=== PATIENT | female | born 1970 | race American Indian/Alaskan Native ===

== ENCOUNTER 2020-09-02 13:55 | Inpatient (IN) | payer OTHER ==
--- NOTE | 2020-09-02 14:40 | Emergency Department Report ---
Blank Doc - Documentation Documentation: 49-year female that presents with generalized abdominal pain with nausea vomit ing x2 weeks and weakness. 1- This initial assessment/diagnostic orders/clinical plan/ treatment(s) is/are subject to change based on pt's health status, clinical progression and re- assessment by fellow clinical providers in the ED. Further treatment and workup at subsequent clinical provers discretion. Patient/guardians urged not to elope from ED as their condition may be serious if not clinically assessed and managed. 2-labs 3-UA
[2020-09-02 15:20] LABS: Basophils % (Auto) 0.9 % (0.0-1.8); Eosinophils % (Auto) 0.2 % (0.0-4.3); Hematocrit 33.6 % (30.3-42.9); Hemoglobin 11.1 gm/dl (10.1-14.3); Lymphocytes # (Auto) 1.3 K/mm3 (1.2-5.4); Mean Corpuscular HGB Conc 33 % (30-34); Mean Corpuscular Volume 97 fl (79-97); Monocytes # (Auto) 0.4 K/mm3 (0.0-0.8); Monocytes % (Auto) 7.2 % (0.0-7.3); Platelet Count 169 K/mm3 (140-440); Red Blood Count 3.47 M/mm3 (3.65-5.03); Red Cell Distribution Width 14.4 % (13.2-15.2)
[2020-09-02 15:42] LABS: Alanine Aminotransferase 13 units/L (7-56); Albumin 3.8 g/dL (3.9-5); BUN/Creatinine Ratio 14; Blood Urea Nitrogen 13 mg/dL (7-17); Calcium 9.2 mg/dL (8.4-10.2); Hemolysis Index 2
[2020-09-02] MEDS ORDERED: MORPHINE 4 MG/1 ML INJ IV ONE (17:52)
[2020-09-02] MEDS ORDERED: ONDANSETRON 4 MG/2 ML INJ IV ONE (17:52)
--- NOTE | 2020-09-02 17:55 | Emergency Department Report ---
<JAVI ZAMORA - Last Filed: 09/02/20 21:38> ED General Adult HPI - General Chief complaint: Abdominal Pain Stated complaint: ABD PAINS Time Seen by Provider: 09/02/20 14:38 - Related Data Allergies Allergy/AdvReac Type Severity Reaction Status Date / Time heparin Allergy Unknown Verified 09/02/20 14:42 shellfish derived Allergy Unknown Verified 09/02/20 14:42 ED Medical Decision Making - Lab Data Result diagrams: 09/02/20 14:49 09/02/20 14:49 - Radiology Data [facility] [address] [place] [address] Cat Scan Report Signed Patient: EMILY ZAVALA MR#: [id number] 0 : 1970 Acct:[id number] Age/Sex: 49 / F ADM Date: 09/02/20 Loc: ED Attending Dr: Ordering Physician: JULIA PINEDA Date of Service: 09/02/20 Procedure(s): CT abdomen pelvis w con Accession Number(s): [id number] cc: JULIA PINEDA CT ABDOMEN AND PELVIS WITH CONTRAST INDICATION / CLINICAL INFORMATION: left upper abdominal pain; hx gastric bypass. TECHNIQUE: Axial CT images were obtained through the abdomen and pelvis after 100 cc Omnipaque [address] scans at this location are performed using CT dose reduction for ALARA by means of automated exposure control. COMPARISON: None available. FINDINGS: LOWER CHEST: Subsegmental centrilobular tree-in-bud nodules in the medial segment of the middle lobe and lingula. HEPATOBILIARY: Mild-moderate extrahepatic and intrahepatic biliary ductal dilatation. Cholecystectomy status. Intrapancreatic common bile duct tapers without visuali zed obstruction. No focal hepatic lesion. PANCREAS/SPLEEN/ADRENALS: Pancreatic duct measures at the upper limits of normal. No significant adrenal abnormality. 2.7 cm splenic focus which measures slightly greater than expected for simple cyst. GENITOURINARY: 1.3 cm right simple renal cyst. No solid renal lesion or nephrolithiasis. No obstructive uropathy. Ureters demonstrate no significant abnormality. Bladder demonstrates no significant abnormality. GASTROINTESTINAL/MESENTERY: Extensive operative change throughout the bowel including gastric bypass. There is moderate dilatation of the proximal small bowel in the upper abdomen with contrast stasis and abrupt narrowing in the left upper quadrant (axial series 4 image 36 and coronal series 601 image 44). Some contrast does make it downstream into the moderately distended pelvic small bowel loops. The proximal colon is also moderately distended with fluid and air. No free air or significant free fluid visualized. RETROPERITONEUM: No significant adenopathy. REPRODUCTIVE ORGANS: No significant abnormality. VASCULAR: IVC filter in place below the level of the renal veins. No significant atherosclerotic calcification or acute vascular abnormality. BODY WALL: No significant abnormality. SKELETAL SYSTEM: No significant abnormality. IMPRESSION: 1. Extensive postoperative change throughout the bowel with moderately dilated, contrast-filled proximal small bowel and focal narrowing in the left upper quadrant. Some contrast does make it into the distal small bowel. Findings are suggestive of partial small bowel obstruction. 2. Small airways disease in the middle lobe and lingula which can be seen in the setting of chronic nontuberculous mycobacterial infection. Consider pulmonology referral if not already performed. 3. Mild-moderate, diffuse biliary ductal dilatation. No obstruction identified. Consider further evaluation with MRCP. 4 additional findings as above. Signer Name: Fabiola Leavitt MD Signed: 09/02/2020 9:15 PM Workstation Name: [id number] Transcribed By: Dictated By: FABIOLA LEAVITT III Electronically Authenticated By: FABIOLA LEAVITT III Signed Date/Time: 09/02/202114 ED Disposition Clinical Impression: Partial small bowel obstruction, Multiple pulmonary nodules, Dilated bile duct Disposition: 09 OP ADMIT IP TO THIS HOSP Condition: Stable <SYBILSARIKA ARCHIBALD - Last Filed: 09/03/20 00:08> ED General Adult HPI - General Source: patient Mode of arrival: Wheelchair Limitations: No Limitations - History of Present Illness Initial comments: 49-year-old female patient with history of multiple sclerosis and gastric bypass surgery presents to the emergency department with complaints of left upper abdominal pain with associated nausea, vomiting, and constipation worsening for 2 weeks. Patient states the pain worsened significantly today. Last bowel movement was yesterday. States she has been having fewer bowel movements since onset of her pain. She is unsure whether she is currently taking steroids or antibiotics. Denies fever, chills, rectal bleeding, vaginal bleeding, hematemesis, vaginal discharge, rash. Denies other complaints at this time. ED Review of Systems ROS: Stated complaint: ABD PAINS Other details as noted in HPI Other: GENERAL: Negative for fever, chills, weight change, anorexia, fatigue. ENT: Negative for ear pain, difficulty hearing, sore throat, nasal congestion, epistaxis. CARDIOVASCULAR: Negative for chest pain, palpitations, lower extremity swelling. PULMONARY: Negative for cough, dyspnea, wheezing, orthopnea, cyanosis. GASTROINTESTINAL: Positive for abdominal pain, nausea, vomiting, constipation. MUSCULOSKELETAL: Negative for joint pain, joint swelling, myalgias, back pain, neck pain. NEUROLOGICAL: Negative for headache, seizure, syncope, paresthesias, weakness. INTEGUMENTARY: Negative for erythema, rash, diaphoresis, laceration, ecchymosis. HEMATOLOGICAL: Negative for hemoptysis, hematemesis, hematochezia, hematuria. PSYCHIATRIC: Negative for hallucinations, suicidal ideation, homicidal ideation, anxiety, depression. ED Past Medical Hx - Past Medical History Previous Medical History?: Yes Hx GERD: Yes Additional medical history: MS - Surgical History Past Surgical History?: Yes Additional Surgical History: gastric bypass, trach-resolved - Social History Smoking Status: Never Smoker Substance Use Type: None ED Physical Exam - General Limitations: No Limitations - Other Other exam information: General: Awake and alert. No acute distress. Head: Atraumatic, normocephalic. Eyes: EOMI. Pupils are equal and round. Normal sclera and conjunctiva. ENT: Oral mucosa is moist. Normal pharyngeal exam. Neck: Supple. No lymphadenopathy. Pulmonary: No respiratory distress. Clear to auscultation bilaterally. Cardiac: Regular rate and rhythm. Pulses are palpable and equal bilaterally. No lower extremity cyanosis or edema. Skin: Warm and dry. No rashes. Abdomen: Soft, non-distended. Left upper quadrant and left lower quadrant tenderness without guarding, rigidity, or rebound. Bowel sounds present but diminished throughout. Back: Normal alignment. No CVA tenderness. Extremities: Symmetrical. Full range of motion intact. Neurological: Alert and oriented, appropriately interactive, no focal deficits. Psych: Cooperative. Appropriate mood and affect. Speech is evenly metered. Thoughts are logically construed. ED Course Vital Signs 09/02/20 09/02/20 09/02/20 14:37 18:21 22:41 Temperature 99.1 F 98.0 F Pulse Rate 65 61 Respiratory 20 20 16 Rate Blood Pressure 107/79 Blood Pressure 103/58 [Left] O2 Sat by Pulse 100 100 Oximetry ED Medical Decision Making - Lab Data Result diagrams: 09/02/20 14:49 09/02/20 14:49 - Medical Decision Making Differential diagnosis including but not limited to: small bowel obstruction, bowel perforation, volvulus, ileus, mesenteric ischemia, appendicitis, pancreatitis, diverticulitis, cholelithiasis, , pyelonephritis, nephrolithiasis, pleural effusion On reevaluation, patient is stable and symptoms have improved. No further vomiting in the emergency department. Pain is controlled. test is negative. Labs are unremarkable. CT of the abdomen/pelvis obtained with IV plus PO contrast due to history of previous gastric bypass surgery. Imaging shows evidence of partial small bowel obstruction as well as small airways disease in the lungs and diffuse biliary ductal dilatation without obstruction. Case discussed with Dr. Ohara, general surgeon, who recommends IV fluids and pain control, and agrees to evaluate patient on admission. Case discussed with hospitalist, who agrees to admit. Patient expressed understanding and is agreeable to plan of care. Case discussed with Dr. Zamora, attending emergency physician, who agrees with diagnostic work-up and plan of care. Critical care attestation.: If time is entered above; I have spent that time in minutes in the direct care of this critically ill patient, excluding procedure time. ED Disposition Is pt being admited?: Yes Does the pt Need Aspirin: No
[2020-09-02 18:29] LABS: Bilirubin,Urine NEG (Negative); Blood,Urine LG (Negative); Calcium Oxalate Crystals,Urine 2+; Color,Urine Amber (Yellow); Mucus,Urine 3+ /HPF
[2020-09-02 18:32] LABS: RBC,Urine > 182.0 /HPF (0.0-6.0)
--- NOTE | 2020-09-02 21:20 | Cat Scan Report ---
CT ABDOMEN AND PELVIS WITH CONTRAST INDICATION / CLINICAL INFORMATION: left upper abdominal pain; hx gastric bypass. TECHNIQUE: Axial CT images were obtained through the abdomen and pelvis after 100 cc Omnipaque [address] scans at this location are performed using CT dose reduction for ALARA by means of automated exposure control. COMPARISON: None available. FINDINGS: LOWER CHEST: Subsegmental centrilobular tree-in-bud nodules in the medial segment of the middle lobe and lingula. HEPATOBILIARY: Mild-moderate extrahepatic and intrahepatic biliary ductal dilatation. Cholecystectomy status. Intrapancreatic common bile duct tapers without visualized obstruction. No focal hepatic les ion. PANCREAS/SPLEEN/ADRENALS: Pancreatic duct measures at the upper limits of normal. No significant adre nal abnormality. 2.7 cm splenic focus which measures slightly greater than expected for simple cyst. GENITOURINARY: 1.3 cm right simple renal cyst. No solid renal lesion or nephrolithiasis. No obstructi ve uropathy. Ureters demonstrate no significant abnormality. Bladder demonstrates no significant abno rmality. GASTROINTESTINAL/MESENTERY: Extensive operative change throughout the bowel including gastric bypass. There is moderate dilatation of the proximal small bowel in the upper abdomen with contrast stasis a nd abrupt narrowing in the left upper quadrant (axial series 4 image 36 and coronal series 601 image 44). Some contrast does make it downstream into the moderately distended pelvic small bowel loops. Th e proximal colon is also moderately distended with fluid and air. No free air or significant free flu id visualized. RETROPERITONEUM: No significant adenopathy. REPRODUCTIVE ORGANS: No significant abnormality. VASCULAR: IVC filter in place below the level of the renal veins. No significant atherosclerotic calc ification or acute vascular abnormality. BODY WALL: No significant abnormality. SKELETAL SYSTEM: No significant abnormality. IMPRESSION: 1. Extensive postoperative change throughout the bowel with moderately dilated, contrast-filled proxi mal small bowel and focal narrowing in the left upper quadrant. Some contrast does make it into the d istal small bowel. Findings are suggestive of partial small bowel obstruction. 2. Small airways disease in the middle lobe and lingula which can be seen in the setting of chronic n ontuberculous mycobacterial infection. Consider pulmonology referral if not already performed. 3. Mild-moderate, diffuse biliary ductal dilatation. No obstruction identified. Consider further eval uation with MRCP. 4 additional findings as above. Signer Name: Bobby Leavitt MD Signed: 09/02/2020 9:15 PM Workstation Name: [id number]
[2020-09-02] MEDS ORDERED: MORPHINE 2 MG/1 ML INJ IV ONE (21:33)
[2020-09-02] MEDS ORDERED: SODIUM CHLORIDE 0.9% 1000 ML 1,000 ML IV ONE (21:44)
[2020-09-02] MEDS ORDERED: ACETAMINOPHEN 325 MG TAB PO PRN (22:05)
[2020-09-02] MEDS ORDERED: ONDANSETRON 4 MG/2 ML INJ IV PRN (22:05)
[2020-09-02] MEDS ORDERED: hydrALAZINE 20 MG/1 ML INJ IV PRN (22:06)
--- NOTE | 2020-09-02 22:14 | History and Physical Report ---
History of Present Illness Date of examination: 09/02/20 Date of admission: 09/02/20 Chief complaint: Abdominal pain History of present illness: 49-year-old female with past medical history of multiple sclerosis and gastric bypass surgery was brought to the emergency department with complaints of left upper abdominal pain with associated nausea, vomiting, and constipation worsening for 2 weeks. Patient states the pain worsened 5/10. Last bowel movement was yesterday. States she has been having fewer bowel movements since onset of her pain. She is unsure whether she is currently taking steroids or antibiotics. Denies fever, chills, rectal bleeding, vaginal bleeding, hematemesis, vaginal discharge, rash. Denies other complaints at this time. In the emergency room patient is a CT scan of the abdomen and pelvis which showed patient has partial small bowel obstruction. Surgery is consulted Past History Past Medical History: GERD, other (Multiple sclerosis and gastric bypass surgery) Medications and Allergies Allergies Allergy/AdvReac Type Severity Reaction Status Date / Time heparin Allergy Unknown Verified 09/02/20 14:42 shellfish derived Allergy Unknown Verified 09/02/20 14:42 Active Meds: Active Medications Acetaminophen (Acetaminophen 325 Mg Tab) 650 mg PO Q4H PRN PRN Reason: Pain MILD(1-3)/Fever >100.5/RENAE Albuterol/Ipratropium (Ipratropium/Albuterol Sulfate 3 Ml Ampul.Neb) 1 ampul IH Q6HRT RUMA Famotidine (Famotidine 20 Mg/2 Ml Inj) 20 mg IV BID RUMA Heparin Sodium (Porcine) (Heparin 5,000 Unit/1 Ml Vial) 5,000 unit SUB-Q Q8HR RUMA Hydralazine HCl (Hydralazine 20 Mg/1 Ml Inj) 10 mg IV Q6H PRN PRN Reason: htn Sodium Chloride (Nacl 0.9% 1000 Ml) 1,000 mls @ 999 mls/hr IV BOLUS ONE Stop: 09/02/20 22:44 Dextrose/Sodium Chloride (D5/0.45ns) 1,000 mls @ 100 mls/hr IV DIRECT RUMA Morphine Sulfate (Morphine 2 Mg/1 Ml Inj) 2 mg IV Q4H PRN PRN Reason: Pain, Moderate (4-6) Ondansetron HCl (Ondansetron 4 Mg/2 Ml Inj) 4 mg IV Q8H PRN PRN Reason: Nausea And Vomiting Sodium Chloride (Sodium Chloride 0.9% 10 Ml Flush Syringe) 10 ml IV BID RUMA Sodium Chloride (Sodium Chloride 0.9% 10 Ml Flush Syringe) 10 ml IV PRN PRN PRN Reason: LINE FLUSH Review of Systems Gastrointestinal: abdominal pain, nausea, vomiting, constipation Exam - Constitutional Vitals: Temp Pulse Resp BP Pulse Ox 99.1 F 65 20 107/79 100 09/02/20 14:37 09/02/20 14:37 09/02/20 18:21 09/02/20 14:37 09/02/20 14:37 General appearance: Present: no acute distress, well-nourished - EENT Eyes: Present: PERRL ENT: hearing intact, clear oral mucosa - Neck Neck: Present: supple, normal ROM - Respiratory Respiratory effort: normal Respiratory: bilateral: CTA - Cardiovascular Heart Sounds: Present: S1 & S2. Absent: rub, click - Extremities Extremities: pulses symmetrical, No edema Peripheral Pulses: within normal limits - Abdominal General gastrointestinal: Present: soft, tender, non-distended, normal bowel sounds Female genitourinary: Present: normal - Integumentary Integumentary: Present: clear, warm, dry - Musculoskeletal Musculoskeletal: gait normal, strength equal bilaterally - Psychiatric Psychiatric: appropriate mood/affect, intact judgment & insight - Neurologic Neurologic: CNII-XII intact, moves all extremities Results - Labs CBC & Chem 7: 09/02/20 14:49 09/02/20 14:49 Labs: Laboratory Last Values WBC 5.1 K/mm3 (4.5-11.0) 09/02/20 14:49 RBC 3.47 M/mm3 (3.65-5.03) L 09/02/20 14:49 Hgb 11.1 gm/dl (10.1-14.3) 09/02/20 14:49 Hct 33.6 % (30.3-42.9) 09/02/20 14:49 MCV 97 fl (79-97) 09/02/20 14:49 MCH 32 pg (28-32) 09/02/20 14:49 MCHC 33 % (30-34) 09/02/20 14:49 RDW 14.4 % (13.2-15.2) 09/02/20 14:49 Plt Count 169 K/mm3 (140-440) 09/02/20 14:49 Lymph % (Auto) 26.0 % (13.4-35.0) 09/02/20 14:49 [place] % (Auto) 7.2 % (0.0-7.3) 09/02/20 14:49 Eos % (Auto) 0.2 % (0.0-4.3) 09/02/20 14:49 Baso % (Auto) 0.9 % (0.0-1.8) 09/02/20 14:49 Lymph # (Auto) 1.3 K/mm3 (1.2-5.4) 09/02/20 14:49 [place] # (Auto) 0.4 K/mm3 (0.0-0.8) 09/02/20 14:49 Eos # (Auto) 0.0 K/mm3 (0.0-0.4) 09/02/20 14:49 Baso # (Auto) 0.0 K/mm3 (0.0-0.1) 09/02/20 14:49 Seg Neutrophils % 65.7 % (40.0-70.0) 09/02/20 14:49 Seg Neutrophils # 3.4 K/mm3 (1.8-7.7) 09/02/20 14:49 Sodium 141 mmol/L (137-145) 09/02/20 14:49 Potassium 4.0 mmol/L (3.6-5.0) 09/02/20 14:49 Chloride 102.3 mmol/L (98-107) 09/02/20 14:49 Carbon Dioxide 30 mmol/L (22-30) 09/02/20 14:49 Anion Gap 13 mmol/L 09/02/20 14:49 BUN 13 mg/dL (7-17) 09/02/20 14:49 Creatinine 0.9 mg/dL (0.6-1.2) 09/02/20 14:49 Estimated GFR > 60 ml/min 09/02/20 14:49 BUN/Creatinine Ratio 14 % 09/02/20 14:49 Glucose 116 mg/dL (65-100) H 09/02/20 14:49 Calcium 9.2 mg/dL (8.4-10.2) 09/02/20 14:49 Magnesium 1.70 mg/dL (1.7-2.3) 09/02/20 18:02 Total Bilirubin 0.30 mg/dL (0.1-1.2) 09/02/20 14:49 AST 18 units/L (5-40) 09/02/20 14:49 ALT 13 units/L (7-56) 09/02/20 14:49 Alkaline Phosphatase 102 units/L (35-129) 09/02/20 14:49 Total Protein 6.6 g/dL (6.3-8.2) 09/02/20 14:49 Albumin 3.8 g/dL (3.9-5) L 09/02/20 14:49 Albumin/Globulin Ratio 1.4 % 09/02/20 14:49 Lipase 16 units/L (13-60) 09/02/20 14:49 HCG, Qual Negative (Negative) 09/02/20 14:49 Urine Color [place] (Yellow) 09/02/20 18:05 Urine Turbidity Cloudy (Clear) 09/02/20 18:05 Urine pH 5.0 (5.0-7.0) 09/02/20 18:05 Ur Specific [place] 1.036 (1.003-1.030) H 09/02/20 18:05 Urine Protein 100 mg/dl mg/dL (Negative) 09/02/20 18:05 Urine Glucose (UA) Neg mg/dL (Negative) 09/02/20 18:05 Urine Ketones Neg mg/dL (Negative) 09/02/20 18:05 Urine Blood Lg (Negative) 09/02/20 18:05 Urine Nitrite Neg (Negative) 09/02/20 18:05 Urine Bilirubin Neg (Negative) 09/02/20 18:05 Urine Urobilinogen 2.0 mg/dL (<2.0) 09/02/20 18:05 Ur Leukocyte Esterase Neg (Negative) 09/02/20 18:05 Urine WBC (Auto) 1.0 /HPF (0.0-6.0) 09/02/20 18:05 Urine RBC (Auto) > 182.0 /HPF (0.0-6.0) 09/02/20 18:05 Calcium Oxalate Crystal 2+ 09/02/20 18:05 Urine Mucus 3+ /HPF 09/02/20 18:05 - Imaging and Cardiology CT scan - abdomen: image reviewed Assessment and Plan VTE prophylaxis?: Chemical Plan of care discussed with patient/family: Yes - Patient Problems (1) Partial small bowel obstruction Current Visit: Yes Status: Acute Plan to address problem: Admit the patient to the medical floor. Nothing by mouth. IV fluid D5 half- normal saline at the rate of 100 cc/h. Pepcid 20 mg IV every 12 hours and Zofran 4 mg IV every 6 hours as needed. We consulted surgery for evaluation. Recheck CBC BMP in the morning (2) Multiple sclerosis Current Visit: Yes Status: Acute Plan to address problem: Stable we will continue the home medication (3) Dilated bile duct Current Visit: Yes Status: Acute Plan to address problem: Nothing by mouth. IV fluid D5 half-normal saline at the rate of 100 cc/h. Pepcid 20 mg IV every 12 hours and Zofran 4 mg IV every 6 hours as needed. We consulted surgery for evaluation. Recheck CBC BMP in the morning. If needed please consult GI in the morning (4) Multiple pulmonary nodules Current Visit: Yes Status: Acute Plan to address problem: Stable. Patient denies any shortness of breath. Outpatient follow-up with pulmonary. DuoNeb by nebulizer every 4 hours as needed (5) DVT prophylaxis Current Visit: Yes Status: Acute Plan to address problem: Heparin 5000 units subcu every 8 hours for DVT prophylaxis. Pepcid 20 mg IV daily 12 hours for GI prophylaxis. Patient is a full code.
[2020-09-03] MEDS: D5W/0.45% NACL 1,000 ML IV SCH (00:37)
[2020-09-03] MEDS: MORPHINE 2 MG/1 ML INJ IV PRN ×2 (04:09→23:44)
[2020-09-03] MEDS: IPRATROPIUM/ALBUTEROL SULFATE 3 ML AMPUL.NEB IH SCH ×3 (05:12→15:39)
[2020-09-03] MEDS ORDERED: HEPARIN 5,000 UNIT/1 ML VIAL SUB-Q SCH (06:00)
[2020-09-03 06:35] LABS: Basophils % (Auto) 0.7 % (0.0-1.8); Eosinophils % (Auto) 0.5 % (0.0-4.3); Hematocrit 32.2 % (30.3-42.9); Hemoglobin 10.6 gm/dl (10.1-14.3); Lymphocytes # (Auto) 1.7 K/mm3 (1.2-5.4); Mean Corpuscular HGB Conc 33 % (30-34); Mean Corpuscular Volume 96 fl (79-97); Monocytes # (Auto) 0.3 K/mm3 (0.0-0.8); Platelet Count 152 K/mm3 (140-440); Red Blood Count 3.34 M/mm3 (3.65-5.03); Red Cell Distribution Width 14.2 % (13.2-15.2)
[2020-09-03 06:51] LABS: BUN/Creatinine Ratio 14; Blood Urea Nitrogen 11 mg/dL (7-17); Calcium 8.1 mg/dL (8.4-10.2); Hemolysis Index 19
--- NOTE | 2020-09-03 07:55 | Progress Note ---
Assessment and Plan Assessment and plan: (1) Partial small bowel obstruction Current Visit: Yes Status: Acute Plan to address problem: Admit the patient to the medical floor. Nothing by mouth. IV fluid D5 half- normal saline at the rate of 100 cc/h. Pepcid 20 mg IV every 12 hours and Zofran 4 mg IV every 6 hours as needed. We consulted surgery for evaluation. Recheck CBC BMP in the morning (2) Multiple sclerosis Current Visit: Yes Status: Acute Plan to address problem: Stable we will continue the home medication (3) Dilated bile duct Current Visit: Yes Status: Acute Plan to address problem: Nothing by mouth. IV fluid D5 half-normal saline at the rate of 100 cc/h. Pepcid 20 mg IV every 12 hours and Zofran 4 mg IV every 6 hours as needed. We c onsulted surgery for evaluation. Recheck CBC BMP in the morning. If needed please consult GI in the morning (4) Multiple pulmonary nodules Current Visit: Yes Status: Acute Plan to address problem: Stable. Patient denies any shortness of breath. Outpatient follow-up with pulmonary. DuoNeb by nebulizer every 4 hours as needed (5) DVT prophylaxis Current Visit: Yes Status: Acute Plan to address problem: Heparin 5000 units subcu every 8 hours for DVT prophylaxis. Pepcid 20 mg IV daily 12 hours for GI prophylaxis. Patient is a full code. 09/03/2020 -Patient has partial small bowel obstruction and general surgery evaluated and recommend diagnostic exploratory laparotomy. 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 The patient appeared well nourished and normally developed. Vital signs as documented. Head exam is unremarkable. No scleral icterus . Neck is without jugular venous distension, thyromegaly, or carotid bruits. Lungs are clear to auscultation. Cardiac exam reveals regular rate and Rhythm. Abdominal exam reveals normal bowel sounds, nontender, no organomegaly. Extremities are nonedematous and both femoral and pedal pulses are normal. POWER PRESS TENDER: Alert and oriented 3. No focal weakness. - Constitutional Vitals: Temp Pulse Resp BP Pulse Ox 98.1 F 50 L 20 105/50 99 09/03/20 04:04 09/03/20 04:04 09/03/20 04:04 09/03/20 04:04 09/03/20 04:04 General appearance: Present: no acute distress, well-nourished Results - Labs CBC & Chem 7: 09/03/20 05:19 09/03/20 05:19 Labs: Laboratory Last Values WBC 3.9 K/mm3 (4.5-11.0) L 09/03/20 05:19 RBC 3.34 M/mm3 (3.65-5.03) L 09/03/20 05:19 Hgb 10.6 gm/dl (10.1-14.3) 09/03/20 05:19 Hct 32.2 % (30.3-42.9) 09/03/20 05:19 MCV 96 fl (79-97) 09/03/20 05:19 MCH 32 pg (28-32) 09/03/20 05:19 MCHC 33 % (30-34) 09/03/20 05:19 RDW 14.2 % (13.2-15.2) 09/03/20 05:19 Plt Count 152 K/mm3 (140-440) 09/03/20 05:19 Lymph % (Auto) 42.0 % (13.4-35.0) H 09/03/20 05:19 [place] % (Auto) 8.0 % (0.0-7.3) H 09/03/20 05:19 Eos % (Auto) 0.5 % (0.0-4.3) 09/03/20 05:19 Baso % (Auto) 0.7 % (0.0-1.8) 09/03/20 05:19 Lymph # (Auto) 1.7 K/mm3 (1.2-5.4) 09/03/20 05:19 [place] # (Auto) 0.3 K/mm3 (0.0-0.8) 09/03/20 05:19 Eos # (Auto) 0.0 K/mm3 (0.0-0.4) 09/03/20 05:19 Baso # (Auto) 0.0 K/mm3 (0.0-0.1) 09/03/20 05:19 Seg Neutrophils % 48.8 % (40.0-70.0) 09/03/20 05:19 Seg Neutrophils # 1.9 K/mm3 (1.8-7.7) 09/03/20 05:19 Sodium 140 mmol/L (137-145) 09/03/20 05:19 Potassium 4.1 mmol/L (3.6-5.0) 09/03/20 05:19 Chloride 103.0 mmol/L (98-107) 09/03/20 05:19 Carbon Dioxide 28 mmol/L (22-30) 09/03/20 05:19 Anion Gap 13 mmol/L 09/03/20 05:19 BUN 11 mg/dL (7-17) 09/03/20 05:19 Creatinine 0.8 mg/dL (0.6-1.2) 09/03/20 05:19 Estimated GFR > 60 ml/min 09/03/20 05:19 BUN/Creatinine Ratio 14 % 09/03/20 05:19 Glucose 85 mg/dL (65-100) 09/03/20 05:19 Calcium 8.1 mg/dL (8.4-10.2) L 09/03/20 05:19 Magnesium 1.70 mg/dL (1.7-2.3) 09/02/20 18:02 Total Bilirubin 0.30 mg/dL (0.1-1.2) 09/02/20 14:49 AST 18 units/L (5-40) 09/02/20 14:49 ALT 13 units/L (7-56) 09/02/20 14:49 Alkaline Phosphatase 102 units/L (35-129) 09/02/20 14:49 Total Protein 6.6 g/dL (6.3-8.2) 09/02/20 14:49 Albumin 3.8 g/dL (3.9-5) L 09/02/20 14:49 Albumin/Globulin Ratio 1.4 % 09/02/20 14:49 Lipase 16 units/L (13-60) 09/02/20 14:49 HCG, Qual Negative (Negative) 09/02/20 14:49 Urine Color [place] (Yellow) 09/02/20 18:05 Urine Turbidity Cloudy (Clear) 09/02/20 18:05 Urine pH 5.0 (5.0-7.0) 09/02/20 18:05 Ur Specific [place] 1.036 (1.003-1.030) H 09/02/20 18:05 Urine Protein 100 mg/dl mg/dL (Negative) 09/02/20 18:05 Urine Glucose (UA) Neg mg/dL (Negative) 09/02/20 18:05 Urine Ketones Neg mg/dL (Negative) 09/02/20 18:05 Urine Blood Lg (Negative) 09/02/20 18:05 Urine Nitrite Neg (Negative) 09/02/20 18:05 Urine Bilirubin Neg (Negative) 09/02/20 18:05 Urine Urobilinogen 2.0 mg/dL (<2.0) 09/02/20 18:05 Ur Leukocyte Esterase Neg (Negative) 09/02/20 18:05 Urine WBC (Auto) 1.0 /HPF (0.0-6.0) 09/02/20 18:05 Urine RBC (Auto) > 182.0 /HPF (0.0-6.0) 09/02/20 18:05 Calcium Oxalate Crystal 2+ 09/02/20 18:05 Urine Mucus 3+ /HPF 09/02/20 18:05 Active Medications - Current Medications Current Medications: Generic Name Dose Route Start Last Admin Trade Name Freq PRN Reason Stop Dose Admin Acetaminophen 650 mg 09/02/20 22:05 Acetaminophen 325 Mg Tab PO Q4H PRN Pain MILD(1-3)/Fever >100.5/RENAE Albuterol/Ipratropium 1 ampul 09/03/20 02:00 09/03/20 05:12 Ipratropium/Albuterol Sulfate 3 Ml Ampul.Neb IH Not Given Q6HRT RUMA Famotidine 20 mg 09/03/20 10:00 Famotidine 20 Mg/2 Ml Inj IV BID RUMA Hydralazine HCl 10 mg 09/02/20 22:06 Hydralazine 20 Mg/1 Ml Inj IV Q6H PRN htn Dextrose/Sodium Chloride 1,000 mls @ 100 mls/hr 09/02/20 23:00 09/03/20 00:37 D5/0.45ns IV 100 mls/hr DIRECT RUMA Administration Morphine Sulfate 2 mg 09/02/20 22:05 09/03/20 04:09 Morphine 2 Mg/1 Ml Inj IV 2 mg Q4H PRN Administration Pain, Moderate (4-6) Ondansetron HCl 4 mg 09/02/20 22:05 Ondansetron 4 Mg/2 Ml Inj IV Q8H PRN Nausea And Vomiting Sodium Chloride 10 ml 09/03/20 10:00 Sodium Chloride 0.9% 10 Ml Flush Syringe IV BID RUMA Sodium Chloride 10 ml 09/02/20 22:05 Sodium Chloride 0.9% 10 Ml Flush Syringe IV PRN PRN LINE FLUSH
[2020-09-03] MEDS ORDERED: LIDOCAINE (1%) 10 MG/1 ML VIAL 20 ML MDV ONE (08:59)
[2020-09-03] MEDS ORDERED: BUPIVACAINE/PF (0.5%) 5 MG/1 ML 30 ML VIAL INFILTRATI ONE ×2 (08:59→11:07)
[2020-09-03] MEDS ORDERED: fentaNYL 100 MCG/2 ML INJ ONE (09:09)
[2020-09-03] MEDS ORDERED: LIDOCAINE MPF (2%) 20 MG/1 ML VIAL 5 ML ONE (09:10)
[2020-09-03] MEDS ORDERED: ROCURONIUM 50 MG/5 ML INJ IV ONE ×2 (09:10→12:22)
[2020-09-03] MEDS ORDERED: propofoL 200 MG/20 ML VIAL IV ONE (09:10)
[2020-09-03] MEDS: FAMOTIDINE 20 MG/2 ML INJ IV SCH ×2 (09:11→21:37)
--- NOTE | 2020-09-03 09:19 | Anesthesia Consultation ---
Anesthesia Consult and Med Hx Date of service: 09/03/20 - Airway Anesthetic Teeth Evaluation: Poor (very poor dental health, mutiple missing cracked, chiped, loose teeth), Chipped ROM Head & Neck: Adequate Mental/Hyoid Distance: Adequate Mallampati Class: Class II Intubation Access Assessment: Probably Good - Pulmonary Exam CTA: Yes - Cardiac Exam Cardiac Exam: RRR - Pre-Operative Health Status ASA Pre-Surgery Classification: ASA3 Proposed Anesthetic Plan: General - Pulmonary Hx Asthma: No COPD: No Hx Pneumonia: Yes (h/o bronchities ) - Cardiovascular System Hx Hypertension: Yes - Central Nervous System Hx Neuromuscular Disorder: Yes (multiple sclerosis) - Endocrine Hx End Stage Renal Disease: No
--- NOTE | 2020-09-03 09:20 | Anesthesia Day of Surgery ---
Anesthesia Day of Surgery - Day of Surgery Patient Examined: Yes Patient H&P Reviewed: Yes Patient is NPO: Yes Beta Blockers: No
--- NOTE | 2020-09-03 09:38 | Consultation ---
History of Present Illness Consult date: 09/03/20 Reason for consult: abdominal pain Chief complaint: Abdominal pain - History of present illness History of present illness: 49-year-old female with a past surgical history of open gastric bypass, tracheos jet/PEG tubenow decannulated, who presented to the [facility] emergency room with complaints of left upper quadrant abdominal pain for the past several days. The pain is crampy and intermittent. She states it is very severe at times. The pain does not radiate. She has had pain like this in the past but it has been mild and tolerable. Her gastric bypass was done in 2003 at [facility] [place]. She states that since her gastric bypass she has had an endoscopy many years ago which may have shown ulcer disease. She states that she has been having nausea and retching. She has been having bowel movements and passing flatus. No fevers or chills, chest pain, shortness of breath. She states that she was 300 pounds prior to the gastric bypass. She does not smoke. Past History Past Medical History: GERD, other (Multiple sclerosis and gastric bypass surger y) Past Surgical History: Other (Open gastric bypass, PEG tube, tracheostomy) Social history: no significant social history Family history: no significant family history Medications and Allergies Allergies Allergy/AdvReac Type Severity Reaction Status Date / Time heparin Allergy Unknown Verified 09/02/20 14:42 shellfish derived Allergy Unknown Verified 09/02/20 14:42 Active Meds: Active Medications Acetaminophen (Acetaminophen 325 Mg Tab) 650 mg PO Q4H PRN PRN Reason: Pain MILD(1-3)/Fever >100.5/RENAE Albuterol/Ipratropium (Ipratropium/Albuterol Sulfate 3 Ml Ampul.Neb) 1 ampul IH Q6HRT REPLACED BY [facility] Last Admin: 09/03/20 09:12 Dose: Not Given Documented by: Famotidine (Famotidine 20 Mg/2 Ml Inj) 20 mg IV BID REPLACED BY [facility] Last Admin: 09/03/20 09:11 Dose: 20 mg Documented by: Hydralazine HCl (Hydralazine 20 Mg/1 Ml Inj) 10 mg IV Q6H PRN PRN Reason: htn Dextrose/Sodium Chloride (D5/0.45ns) 1,000 mls @ 100 mls/hr IV DIRECT REPLACED BY [facility] Last Admin: 09/03/20 00:37 Dose: 100 mls/hr Documented by: Morphine Sulfate (Morphine 2 Mg/1 Ml Inj) 2 mg IV Q4H PRN PRN Reason: Pain, Moderate (4-6) Last Admin: 09/03/20 04:09 Dose: 2 mg Documented by: Ondansetron HCl (Ondansetron 4 Mg/2 Ml Inj) 4 mg IV Q8H PRN PRN Reason: Nausea And Vomiting Sodium Chloride (Sodium Chloride 0.9% 10 Ml Flush Syringe) 10 ml IV BID RUMA Last Admin: 09/03/20 09:11 Dose: 10 ml Documented by: Sodium Chloride (Sodium Chloride 0.9% 10 Ml Flush Syringe) 10 ml IV PRN PRN PRN Reason: LINE FLUSH Review of Systems All systems: negative (10 point ROS performed and negative except for that listed in HPI) Exam Vital Signs Temp Pulse Resp BP Pulse Ox 99.1 F 65 20 107/79 100 09/02/20 14:37 09/02/20 14:37 09/02/20 14:37 09/02/20 14:37 09/02/20 14:37 Narrative exam: Gen.: Awake, alert, oriented 3. No apparent distress ENT: Trachea midline. No lymphadenopathy. No scleral icterus or conjunctival pallor CV: S1, S2 present Respiratory: No audible wheezes Abdomen: Soft, nondistended. Tenderness to palpation in the left upper nan drant. There is voluntary guarding but no rebound or rigidity. Well-healed midline and left upper quadrant surgical scar. Extremities: No clubbing, cyanosis, edema Results - Labs 09/03/20 05:19 09/03/20 05:19 Abnormal lab results 09/02/20 09/02/20 09/02/20 Range/Units 14:49 14:49 18:05 WBC (4.5-11.0) K/mm3 RBC 3.47 L (3.65-5.03) M/mm3 Lymph % (Auto) (13.4-35.0) % [place] % (Auto) (0.0-7.3) % Glucose 116 H (65-100) mg/dL Calcium (8.4-10.2) mg/dL Albumin 3.8 L (3.9-5) g/dL Ur Specific [place] 1.036 H (1.003-1.030) 09/03/20 09/03/20 Range/Units 05:19 05:19 WBC 3.9 L (4.5-11.0) K/mm3 RBC 3.34 L (3.65-5.03) M/mm3 Lymph % (Auto) 42.0 H (13.4-35.0) % [place] % (Auto) 8.0 H (0.0-7.3) % Glucose (65-100) mg/dL Calcium 8.1 L (8.4-10.2) mg/dL Albumin (3.9-5) g/dL Ur Specific [place] (1.003-1.030) Diabetes panel 09/02/20 09/03/20 Range/Units 14:49 05:19 Sodium 141 140 (137-145) mmol/L Potassium 4.0 4.1 (3.6-5.0) mmol/L Chloride 102.3 103.0 (98-107) mmol/L Carbon Dioxide 30 28 (22-30) mmol/L BUN 13 11 (7-17) mg/dL Creatinine 0.9 0.8 (0.6-1.2) mg/dL Glucose 116 H 85 (65-100) mg/dL Calcium 9.2 8.1 L (8.4-10.2) mg/dL AST 18 (5-40) units/L ALT 13 (7-56) units/L Alkaline Phosphatase 102 (35-129) units/L Total Protein 6.6 (6.3-8.2) g/dL Albumin 3.8 L (3.9-5) g/dL Calcium panel 09/02/20 09/03/20 Range/Units 14:49 05:19 Calcium 9.2 8.1 L (8.4-10.2) mg/dL Albumin 3.8 L (3.9-5) g/dL Pituitary panel 09/02/20 09/03/20 Range/Units 14:49 05:19 Sodium 141 140 (137-145) mmol/L Potassium 4.0 4.1 (3.6-5.0) mmol/L Chloride 102.3 103.0 (98-107) mmol/L Carbon Dioxide 30 28 (22-30) mmol/L BUN 13 11 (7-17) mg/dL Creatinine 0.9 0.8 (0.6-1.2) mg/dL Glucose 116 H 85 (65-100) mg/dL Calcium 9.2 8.1 L (8.4-10.2) mg/dL Adrenal panel 09/02/20 09/03/20 Range/Units 14:49 05:19 Sodium 141 140 (137-145) mmol/L Potassium 4.0 4.1 (3.6-5.0) mmol/L Chloride 102.3 103.0 (98-107) mmol/L Carbon Dioxide 30 28 (22-30) mmol/L BUN 13 11 (7-17) mg/dL Creatinine 0.9 0.8 (0.6-1.2) mg/dL Glucose 116 H 85 (65-100) mg/dL Calcium 9.2 8.1 L (8.4-10.2) mg/dL Total Bilirubin 0.30 (0.1-1.2) mg/dL AST 18 (5-40) units/L ALT 13 (7-56) units/L Alkaline Phosphatase 102 (35-129) units/L Total Protein 6.6 (6.3-8.2) g/dL Albumin 3.8 L (3.9-5) g/dL - Imaging CT scan - abdomen: report reviewed, image reviewed CT scan - pelvis: report reviewed, image reviewed Assessment and Plan 49 yo F with 1. abdominal pain 2. pSBO 3. hx of gastric bypass Plan: 1. NPO 2. IVF 3. prn pain and nausea control 4. Recommend OR for dx lap, possible exlap. Patient with hx of gastric bypass with psbo. Discussed all risks, benefits, alternatives to surgery with patient and questions answered. Consent obtained. Added to OR for today. 5. preop abx ordered Patient states daughter is aware of plan. Thank you, please call with questions. Evaluation and treatment of this patient was during the time of the national and state emergency arising from COVID19 coronavirus pandemic. Treatment and procedures performed meet the current and available best practice and guidelines for patient during the COVID pandemic.
[2020-09-03] MEDS ORDERED: HYDROmorphone 1 MG/1 ML INJ IV PRN (09:55)
[2020-09-03] MEDS ORDERED: ONDANSETRON 4 MG/2 ML INJ IV PRN (09:55)
[2020-09-03] MEDS ORDERED: MIDAZOLAM 2 MG/2 ML INJ IV NR (10:00)
[2020-09-03] MEDS ORDERED: LACTATED RINGERS 1,000 ML IV SCH (10:00)
[2020-09-03] MEDS ORDERED: metroNIDAZOLE/NS 500 MG/100 ML 500 MG/100 ML BAG IV NR (10:00)
[2020-09-03] MEDS ORDERED: MIDAZOLAM 2 MG/2 ML INJ IV SCH (10:00)
[2020-09-03] MEDS ORDERED: ceFAZolin/STERILE WATER 2 GM/20 ML SYRINGE IV NR (10:00)
[2020-09-03] MEDS: LACTATED RINGERS 1,000 ML IV SCH (10:14)
[2020-09-03] MEDS ORDERED: dexAMETHasone 20 MG/5 ML VIAL ONE (11:02)
[2020-09-03] MEDS ORDERED: ONDANSETRON 4 MG/2 ML INJ ONE (11:02)
[2020-09-03] MEDS ORDERED: LIDOCAINE (1%) 10 MG/1 ML VIAL 20 ML MDV INFILTRATI ONE (11:07)
[2020-09-03] MEDS ORDERED: WATER FOR IRRIG STERILE 1,500 ML BOTTLE IR ONE (11:08)
[2020-09-03] MEDS ORDERED: LACTATED RINGERS 1,000 ML ONE (11:52)
[2020-09-03] MEDS ORDERED: HYDROmorphone 1 MG/1 ML INJ ONE (13:01)
[2020-09-03] MEDS ORDERED: GLYCOPYRROLATE 0.4 MG/2 ML INJ ONE ×3 (13:56)
[2020-09-03] MEDS ORDERED: NEOSTIGMINE 10MG/10 ML INJ MDV ONE (13:56)
[2020-09-03] MEDS ORDERED: SODIUM CHLORIDE 0.9% IRR 1,500 ML BOTTLE IR ONE (14:02)
[2020-09-03] MEDS ORDERED: SUGAMMADEX SODIUM 200 MG/2 ML VIAL IV ONE (14:04)
--- NOTE | 2020-09-03 14:28 | Post Operative Note ---
Pre-op diagnosis: pSBO, hx gastric bypass Post-op diagnosis: same Findings: 1. small bowel and omental adhesions to anterior abdominal wall in upper abdomen 2. Bypass intact without abnormality 3. Small bowel anastamosis approx 10 cm from terminal ileum with minimal dilatation with air 4. Small bowel loop with adhesions to mesentery at site of JJ anastamosis but no evidence of obstruction Procedure: diagnostic laparoscopy with TORY -> conversion to ex lap with TORY Anesthesia: DEMETRIA, local Surgeon: KINA LEE Park Worker Supervisor: NADEGE JACOBS (cosurgeon) Estimated blood loss: minimal Pathology: none Condition: stable Disposition: PACU
[2020-09-03] MEDS: HYDROmorphone 1 MG/1 ML INJ IV PRN ×2 (14:48→14:58)
--- NOTE | 2020-09-03 16:55 | Post Anesthesia Evaluation ---
- Post Anesthesia Evaluation Patient Participated: Yes Airway Patent: Yes Stable Respiratory Function: Yes Nausea/Vomiting: No Temp > 96.8F: Yes Pain Manageable: Yes Adequeate Hydration: Yes Anesthesia Complications: No Block Receding Appropriately: Not Applicable Patient on Ventilator: No
--- NOTE | 2020-09-03 17:20 | Operative Report ---
Operative Report Operative Report: Date: 09/03/20 14:25 Pre-op diagnosis: pSBO, hx gastric bypass Post-op diagnosis: same Findings: 1. small bowel and omental adhesions to anterior abdominal wall in upper abdomen 2. Bypass intact without abnormality 3. Small bowel anastamosis approx 10 cm from terminal ileum with minimal dilatation with air 4. Small bowel loop with adhesions to mesentery at site of JJ anastamosis but no evidence of obstruction Procedure: diagnostic laparoscopy with TORY -> conversion to ex lap with TORY Anesthesia: DEMETRIA local Surgeon: KINA LEE Binding End Stitcher: NADEGE JACOBS (cosurgeon) Estimated blood loss: minimal Pathology: none Condition: stable Disposition: PACU HPI and indication: Patient is a 49-year-old female who presented to the [facility] emergency room with complaints of severe left-sided abdominal pain for the past several days. The patient does have a history of a open gastric bypass performed by Dr. Oconnell at [facility] [place] in 2003. Patient was also experiencing nausea and retching. A CT scan was performed which showed a partial small bowel obstruction. It was recommended that the patient undergo diagnostic laparoscopy. All risk, benefits, alternatives to surgery were discussed with the patient and questions answered. Consent was obtained for diagnostic laparoscopy, possible open, possible bowel resection. Procedure in detail: The patient was identified in the preoperative area, taken back to the operating room and placed on the operating room table in supine position. After anesthesia was induced a Marcano catheter was sterilely placed by the circulating nurse. Bilateral arms were tucked and all bony prominences padded appropriately. The abdomen was then prepped and draped in usual sterile fashion a timeout performed. Local anesthetic was infiltrated to skin at the intended incision site. A 2 cm supraumbilical midline incision was made with an 11 blade and dissection carried down through the skin and subcutaneous tissue using Bovie electrocautery. Using the cutdown technique the fascia was identified and grasped between 2 hemostats and tented upwards. This was incised with Metzenbaum scissors. The peritoneum was visualized and grasped with 2 hemostats and entered with Metzenbaum scissors. A 12 mm trocar was placed through this incision and the abdomen insufflated to 15 mmHg. Upon inspection of the abdomen it did appear there were copious adhesions from the omentum and small bowel to the anterior abdominal wall in the upper and mid abdomen. These adhesions were gently dissected bluntly with the scope until an opening was created. An additional left lower quadrant and right lower quadrant 5 mm trocar was placed under direct visualization. Further lysis of adhesions was carried out using a combination of blunt dissection, sharp dissection with EndoShears, and dissection with the LigaSure. Adhesions from the omentum and small bowel were very carefully taken down. Adhesiolysis took greater than 45 minutes. Once adequate lysis of adhesions was performed, we examined the small bowel. The terminal ileum was identified and ran proximally. An additional 5 mm right upper quadrant trocar was placed under direct visualization. Approximately 10 cm proximal to the terminal ileum there was a [id number] small bowel anastomosis identified. This was mildly dilated and patulous but no point of obstruction identified. We continue to run the bowel proximally and there was an area of small bowel adhered to the mesentery of the jejunojejunal anastomosis from the Oz-en-Y gastric bypass. We turned our attention to identifying the limbs of the bypass. The Oz limb was identified and ran proximally and was identified as retrocolic. No obstruction was identified. The biliopancreatic limb was identified and ran proximally to the ligament of Treitz without any point of obstruction. The JJ anastamosis was unremakable. We then returned to the point where the small bowel was adhered to the mesentery of the JJ anastomosis. Despite further laparoscopic lysis of adhesions were unable to examined this bowel completely and therefore it was decided to convert to an open operation. The 12 mm port was removed and the incision elongated both cephalad and caudad around the umbilicus. Dissection was then carried down through the skin and subcutaneous tissue using electrocautery. The fascia was then opened over 2 gloved fingers in a cephalad and caudad direction. The small bowel was eviscerated and once again ran from the terminal ileum proximally to the area of the JJ anastomosis. The small bowel that was tethered to the mesentery was identified and ran proximally and although it was inferior to the mesentery of the anastomosis it was not dilated proximally or distally and appeared to be unobstructed. The remainder of the bowel was examined and no points of obstruction identified. At this point the abdomen was irrigated until the irrigant returned clear. Hemostasis was very carefully ensured. The fascia of the midline incision was closed using a running #1 PDS suture. The skin incisions were infiltrated with local anesthetic and skin approximated using 4-0 Monocryl subcuticular stitches. Dermabond was applied to the skin. At the end of the case all sponge, instrument, sharp counts were correct x2. The Marcano catheter was removed. The patient was awoken from anesthesia extubated, and taken to PACU in stable condition.
[2020-09-04 06:51] LABS: BUN/Creatinine Ratio 9; Blood Urea Nitrogen 7 mg/dL (7-17); Calcium 7.8 mg/dL (8.4-10.2); Hemolysis Index 9
[2020-09-04] MEDS: MORPHINE 2 MG/1 ML INJ IV PRN ×3 (07:25→22:18)
--- NOTE | 2020-09-04 09:04 | Progress Note ---
Assessment and Plan Assessment and plan: (1) Partial small bowel obstruction Current Visit: Yes Status: Acute Plan to address problem: Admit the patient to the medical floor. Nothing by mouth. IV fluid D5 half- normal saline at the rate of 100 cc/h. Pepcid 20 mg IV every 12 hours and Zofran 4 mg IV every 6 hours as needed. We consulted surgery for evaluation. Recheck CBC BMP in the morning (2) Multiple sclerosis Current Visit: Yes Status: Acute Plan to address problem: Stable we will continue the home medication (3) Dilated bile duct Current Visit: Yes Status: Acute Plan to address problem: Nothing by mouth. IV fluid D5 half-normal saline at the rate of 100 cc/h. Pepcid 20 mg IV every 12 hours and Zofran 4 mg IV every 6 hours as needed. We c onsulted surgery for evaluation. Recheck CBC BMP in the morning. If needed please consult GI in the morning (4) Multiple pulmonary nodules Current Visit: Yes Status: Acute Plan to address problem: Stable. Patient denies any shortness of breath. Outpatient follow-up with pulmonary. DuoNeb by nebulizer every 4 hours as needed (5) DVT prophylaxis Current Visit: Yes Status: Acute Plan to address problem: Heparin 5000 units subcu every 8 hours for DVT prophylaxis. Pepcid 20 mg IV daily 12 hours for GI prophylaxis. Patient is a full code. 09/03/2020 -Patient has partial small bowel obstruction and general surgery evaluated and recommend diagnostic exploratory laparotomy. 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 -Hyponatremia; will repeat BMP tomorrow History Interval history: Patient was seen and evaluated this morning Patient is complaining abdominal pain Hospitalist Physical - Physical exam Narrative exam: Not in cardiopulmonary distress. The patient appeared well nourished and normally developed. Vital signs as documented. Head exam is unremarkable. No scleral icterus . Neck is without jugular venous distension, thyromegaly, or carotid bruits. Lungs are clear to auscultation. Cardiac exam reveals regular rate and Rhythm. Abdominal exam reveals clean surgical incision Extremities are nonedematous and both femoral and pedal pulses are normal. 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 No focal weakness. - Constitutional Vitals: Temp Pulse Resp BP Pulse Ox 99.0 F 58 L 18 111/66 100 09/04/20 07:06 09/04/20 08:57 09/04/20 08:57 09/04/20 07:06 09/04/20 08:56 General appearance: Present: no acute distress, well-nourished Results - Labs CBC & Chem 7: 09/03/20 05:19 09/04/20 06:13 Labs: Laboratory Last Values WBC 3.9 K/mm3 (4.5-11.0) L 09/03/20 05:19 RBC 3.34 M/mm3 (3.65-5.03) L 09/03/20 05:19 Hgb 10.6 gm/dl (10.1-14.3) 09/03/20 05:19 Hct 32.2 % (30.3-42.9) 09/03/20 05:19 MCV 96 fl (79-97) 09/03/20 05:19 MCH 32 pg (28-32) 09/03/20 05:19 MCHC 33 % (30-34) 09/03/20 05:19 RDW 14.2 % (13.2-15.2) 09/03/20 05:19 Plt Count 152 K/mm3 (140-440) 09/03/20 05:19 Lymph % (Auto) 42.0 % (13.4-35.0) H 09/03/20 05:19 [place] % (Auto) 8.0 % (0.0-7.3) H 09/03/20 05:19 Eos % (Auto) 0.5 % (0.0-4.3) 09/03/20 05:19 Baso % (Auto) 0.7 % (0.0-1.8) 09/03/20 05:19 Lymph # (Auto) 1.7 K/mm3 (1.2-5.4) 09/03/20 05:19 [place] # (Auto) 0.3 K/mm3 (0.0-0.8) 09/03/20 05:19 Eos # (Auto) 0.0 K/mm3 (0.0-0.4) 09/03/20 05:19 Baso # (Auto) 0.0 K/mm3 (0.0-0.1) 09/03/20 05:19 Seg Neutrophils % 48.8 % (40.0-70.0) 09/03/20 05:19 Seg Neutrophils # 1.9 K/mm3 (1.8-7.7) 09/03/20 05:19 Sodium 132 mmol/L (137-145) L D 09/04/20 06:13 Potassium 4.0 mmol/L (3.6-5.0) 09/04/20 06:13 Chloride 98.7 mmol/L (98-107) 09/04/20 06:13 Carbon Dioxide 27 mmol/L (22-30) 09/04/20 06:13 Anion Gap 10 mmol/L 09/04/20 06:13 BUN 7 mg/dL (7-17) 09/04/20 06:13 Creatinine 0.8 mg/dL (0.6-1.2) 09/04/20 06:13 Estimated GFR > 60 ml/min 09/04/20 06:13 BUN/Creatinine Ratio 9 % 09/04/20 06:13 Glucose 103 mg/dL (65-100) H 09/04/20 06:13 Calcium 7.8 mg/dL (8.4-10.2) L 09/04/20 06:13 Magnesium 1.70 mg/dL (1.7-2.3) 09/02/20 18:02 Total Bilirubin 0.30 mg/dL (0.1-1.2) 09/02/20 14:49 AST 18 units/L (5-40) 09/02/20 14:49 ALT 13 units/L (7-56) 09/02/20 14:49 Alkaline Phosphatase 102 units/L (35-129) 09/02/20 14:49 Total Protein 6.6 g/dL (6.3-8.2) 09/02/20 14:49 Albumin 3.8 g/dL (3.9-5) L 09/02/20 14:49 Albumin/Globulin Ratio 1.4 % 09/02/20 14:49 Lipase 16 units/L (13-60) 09/02/20 14:49 HCG, Qual Negative (Negative) 09/02/20 14:49 Urine Color [place] (Yellow) 09/02/20 18:05 Urine Turbidity Cloudy (Clear) 09/02/20 18:05 Urine pH 5.0 (5.0-7.0) 09/02/20 18:05 Ur Specific [place] 1.036 (1.003-1.030) H 09/02/20 18:05 Urine Protein 100 mg/dl mg/dL (Negative) 09/02/20 18:05 Urine Glucose (UA) Neg mg/dL (Negative) 09/02/20 18:05 Urine Ketones Neg mg/dL (Negative) 09/02/20 18:05 Urine Blood Lg (Negative) 09/02/20 18:05 Urine Nitrite Neg (Negative) 09/02/20 18:05 Urine Bilirubin Neg (Negative) 09/02/20 18:05 Urine Urobilinogen 2.0 mg/dL (<2.0) 09/02/20 18:05 Ur Leukocyte Esterase Neg (Negative) 09/02/20 18:05 Urine WBC (Auto) 1.0 /HPF (0.0-6.0) 09/02/20 18:05 Urine RBC (Auto) > 182.0 /HPF (0.0-6.0) 09/02/20 18:05 Calcium Oxalate Crystal 2+ 09/02/20 18:05 Urine Mucus 3+ /HPF 09/02/20 18:05 Marcano/IV: Voiding Method Bedpan Active Medications - Current Medications Current Medications: Generic Name Dose Route Start Last Admin Trade Name Freq PRN Reason Stop Dose Admin Acetaminophen 650 mg 09/02/20 22:05 Acetaminophen 325 Mg Tab PO Q4H PRN Pain MILD(1-3)/Fever >100.5/RENAE Albuterol/Ipratropium 1 ampul 09/03/20 02:00 09/03/20 15:39 Ipratropium/Albuterol Sulfate 3 Ml Ampul.Neb IH 1 ampul Q6HRT RUMA Administration Famotidine 20 mg 09/03/20 10:00 09/03/20 21:37 Famotidine 20 Mg/2 Ml Inj IV 20 mg BID RUMA Administration Hydralazine HCl 10 mg 09/02/20 22:06 Hydralazine 20 Mg/1 Ml Inj IV Q6H PRN htn Dextrose/Sodium Chloride 1,000 mls @ 100 mls/hr 09/02/20 23:00 09/03/20 00:37 D5/0.45ns IV 100 mls/hr DIRECT RUMA Administration Lactated Ringer's 1,000 mls @ 125 mls/hr 09/03/20 10:00 09/03/20 10:14 Lactated Ringers IV 125 mls/hr DIRECT RUMA Administration Morphine Sulfate 2 mg 09/02/20 22:05 09/04/20 07:25 Morphine 2 Mg/1 Ml Inj IV 2 mg Q4H PRN Administration Pain, Moderate (4-6) Ondansetron HCl 4 mg 09/02/20 22:05 Ondansetron 4 Mg/2 Ml Inj IV Q8H PRN Nausea And Vomiting Sodium Chloride 10 ml 09/03/20 10:00 09/03/20 21:38 Sodium Chloride 0.9% 10 Ml Flush Syringe IV 10 ml BID RUMA Administration Sodium Chloride 10 ml 09/02/20 22:05 Sodium Chloride 0.9% 10 Ml Flush Syringe IV PRN PRN LINE FLUSH Nutrition/Malnutrition Assess - Dietary Evaluation Nutrition/Malnutrition Findings: Nutrition Notes Start: 09/03/20 08:26 Freq: Status: Active Protocol: Document 09/03/20 08:27 CW (Rec: 09/03/20 08:36 CW [id number]) Nutrition Notes Need for Assessment generated from: MST Initial or Follow up Assessment Other Pertinent Diagnosis SBO, h/s gastric bypass Current Diet NPO Labs/Tests Reviewed Pertinent Medications D5 1/2 NS at 100 ml/hr Zofran NS at 1L Height 5 ft 5 in Weight 56.699 kg Usual Body Weight 61.4 kg [place] Body Weight (kg) 56.81 BMI 20.7 Intake Prior to Admission Poor Weight change and time frame 8% weight loss x 6 months per pt Weight Status Appropriate Subjective/Other Information RN screen for MST for loss of appetite. Pt reports loss of appetite x3 days r/t pain. Pt is c/o hunger at this time. Reducated on importance of NPO order. UBW of 135 lbs per pt. Burn Absent Trauma Absent GI Symptoms Nausea Food Allergy Yes Skin Integrity/Comment Intact Current % PO Negligible Minimum of two criteria No Energy Intake (severe) < or equal to 50% Estimated Energy Requirement > or equal to 5 days #1 Nutrition Diagnosis Inadequate oral intake Etiology abd pain As Evidenced by Signs and Symptoms pt r/o loss of appetite r/t to abd pain Is patient on ventilator? No Is Patient Ambulatory and/or Out of Bed No REE-([facility]-confined to bed) [phone] Calculation Used for Recommendations [facility] Additional Notes protein needs: 45 - 57g (0.8 - 1 g/kgBW) fluid needs: 1 ml/kcal Nutrition Intervention Change Diet Order: Diet advancement when medically feasible Goal #1 Diet advancement Anticipated Discharge Needs: GI soft diet and upgrading to regular diet as tolerated Follow-Up By: 09/07/20 Additional Comments F/U for diet advancement and intakes
[2020-09-04] MEDS: FAMOTIDINE 20 MG/2 ML INJ IV SCH ×2 (09:08→22:18)
[2020-09-04] MEDS: IPRATROPIUM/ALBUTEROL SULFATE 3 ML AMPUL.NEB IH SCH ×6 (09:09→20:50)
[2020-09-04 10:11] LABS: BUN/Creatinine Ratio 8; Blood Urea Nitrogen 7 mg/dL (7-17); Calcium 7.6 mg/dL (8.4-10.2); Hemolysis Index 22
--- NOTE | 2020-09-04 13:32 | Progress Note ---
Assessment and Plan POD#1 s/p laparoscopic assisted abdominal exploration with extensive lysis of adhesions thought to be the cause of SBO. Afebrile and stable tolerating clears. Will advance to full liquids. If does well can likely discharge tomorrow. Subjective Date of service: 09/04/20 Patient Reports: Positive: feels better, pain is less, tolerating liquids well (no acute events overnight. pt is tolerating clear liquids and says that the pain she had before surgery is almost resolved.) Objective Vital Signs - 12hr 09/04/20 09/04/20 09/04/20 04:44 07:06 07:25 Temperature 98.9 F 99.0 F Pulse Rate 52 L 52 L Pulse Rate [ Anterior Bilateral Throughout] Respiratory 18 16 17 Rate Respiratory Rate [Anterior Bilateral Throughout] Blood Pressure 111/66 111/66 O2 Sat by Pulse 100 100 Oximetry 09/04/20 09/04/20 09/04/20 07:55 08:56 08:57 Temperature Pulse Rate Pulse Rate [ 58 L Anterior Bilateral Throughout] Respiratory 17 Rate Respiratory 18 Rate [Anterior Bilateral Throughout] Blood Pressure O2 Sat by Pulse 100 Oximetry 09/04/20 10:54 Temperature Pulse Rate Pulse Rate [ Anterior Bilateral Throughout] Respiratory 18 Rate Respiratory Rate [Anterior Bilateral Throughout] Blood Pressure O2 Sat by Pulse Oximetry - General physical appearance well developed, no distress, no pain - Respiratory normal expansion, normal respiratory effort - Abdomen soft, not distended, other (incision c/d/i) - Labs 09/03/20 05:19 09/04/20 09:22 Diabetes panel 09/04/20 09/04/20 Range/Units 06:13 09:22 Sodium 132 L D 133 L (137-145) mmol/L Potassium 4.0 4.2 (3.6-5.0) mmol/L Chloride 98.7 101.6 (98-107) mmol/L Carbon Dioxide 27 26 (22-30) mmol/L BUN 7 7 (7-17) mg/dL Creatinine 0.8 0.9 (0.6-1.2) mg/dL Glucose 103 H 111 H (65-100) mg/dL Calcium 7.8 L 7.6 L (8.4-10.2) mg/dL Calcium panel 09/04/20 09/04/20 Range/Units 06:13 09:22 Calcium 7.8 L 7.6 L (8.4-10.2) mg/dL Pituitary panel 09/04/20 09/04/20 Range/Units 06:13 09:22 Sodium 132 L D 133 L (137-145) mmol/L Potassium 4.0 4.2 (3.6-5.0) mmol/L Chloride 98.7 101.6 (98-107) mmol/L Carbon Dioxide 27 26 (22-30) mmol/L BUN 7 7 (7-17) mg/dL Creatinine 0.8 0.9 (0.6-1.2) mg/dL Glucose 103 H 111 H (65-100) mg/dL Calcium 7.8 L 7.6 L (8.4-10.2) mg/dL Adrenal panel 09/04/20 09/04/20 Range/Units 06:13 09:22 Sodium 132 L D 133 L (137-145) mmol/L Potassium 4.0 4.2 (3.6-5.0) mmol/L Chloride 98.7 101.6 (98-107) mmol/L Carbon Dioxide 27 26 (22-30) mmol/L BUN 7 7 (7-17) mg/dL Creatinine 0.8 0.9 (0.6-1.2) mg/dL Glucose 103 H 111 H (65-100) mg/dL Calcium 7.8 L 7.6 L (8.4-10.2) mg/dL
[2020-09-04] MEDS: D5W/0.45% NACL 1,000 ML IV SCH (13:58)
[2020-09-05 06:31] LABS: BUN/Creatinine Ratio 6; Blood Urea Nitrogen 5 mg/dL (7-17); Calcium 7.9 mg/dL (8.4-10.2); Hemolysis Index 15
--- NOTE | 2020-09-05 09:04 | Progress Note ---
Assessment and Plan Assessment and plan: (1) Partial small bowel obstruction Current Visit: Yes Status: Acute Plan to address problem: Admit the patient to the medical floor. Nothing by mouth. IV fluid D5 half- normal saline at the rate of 100 cc/h. Pepcid 20 mg IV every 12 hours and Zofran 4 mg IV every 6 hours as needed. We consulted surgery for evaluation. Recheck CBC BMP in the morning (2) Multiple sclerosis Current Visit: Yes Status: Acute Plan to address problem: Stable we will continue the home medication (3) Dilated bile duct Current Visit: Yes Status: Acute Plan to address problem: Nothing by mouth. IV fluid D5 half-normal saline at the rate of 100 cc/h. Pepcid 20 mg IV every 12 hours and Zofran 4 mg IV every 6 hours as needed. We c onsulted surgery for evaluation. Recheck CBC BMP in the morning. If needed please consult GI in the morning (4) Multiple pulmonary nodules Current Visit: Yes Status: Acute Plan to address problem: Stable. Patient denies any shortness of breath. Outpatient follow-up with pulmonary. DuoNeb by nebulizer every 4 hours as needed (5) DVT prophylaxis Current Visit: Yes Status: Acute Plan to address problem: Heparin 5000 units subcu every 8 hours for DVT prophylaxis. Pepcid 20 mg IV daily 12 hours for GI prophylaxis. Patient is a full code. 09/03/2020 -Patient has partial small bowel obstruction and general surgery evaluated and recommend diagnostic exploratory laparotomy. 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 -Hyponatremia; will repeat BMP tomorrow 09/05/2020 -Patient tolerated clear liquid diet and will advance to full liquid diet -Patient was seen by general surgery cleared her for discharge but patient is complaining severe abdominal pain 10 out of 10 -Patient can be discharged tomorrow if pain is controlled. History Interval history: Patient was seen and evaluated this morning Patient tolerated full liquid diet Patient is complaining severe abdominal pain 10 out of 10 Hospitalist Physical - Physical exam Narrative exam: Not in cardiopulmonary distress. The patient appeared well nourished and normally developed. Vital signs as documented. Head exam is unremarkable. No scleral icterus . Neck is without jugular venous distension, thyromegaly, or carotid bruits. Lungs are clear to auscultation. Cardiac exam reveals regular rate and Rhythm. Abdominal exam reveals clean surgical incision Extremities are nonedematous and both femoral and pedal pulses are normal. 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 No focal weakness. - Constitutional Vitals: Temp Pulse Resp BP Pulse Ox 98.5 F 55 L 20 114/68 100 09/05/20 07:16 09/05/20 07:16 09/05/20 07:16 09/05/20 07:16 09/05/20 07:16 General appearance: Present: no acute distress, well-nourished Results - Labs CBC & Chem 7: 09/03/20 05:19 09/05/20 05:47 Labs: Laboratory Last Values WBC 3.9 K/mm3 (4.5-11.0) L 09/03/20 05:19 RBC 3.34 M/mm3 (3.65-5.03) L 09/03/20 05:19 Hgb 10.6 gm/dl (10.1-14.3) 09/03/20 05:19 Hct 32.2 % (30.3-42.9) 09/03/20 05:19 MCV 96 fl (79-97) 09/03/20 05:19 MCH 32 pg (28-32) 09/03/20 05:19 MCHC 33 % (30-34) 09/03/20 05:19 RDW 14.2 % (13.2-15.2) 09/03/20 05:19 Plt Count 152 K/mm3 (140-440) 09/03/20 05:19 Lymph % (Auto) 42.0 % (13.4-35.0) H 09/03/20 05:19 [place] % (Auto) 8.0 % (0.0-7.3) H 09/03/20 05:19 Eos % (Auto) 0.5 % (0.0-4.3) 09/03/20 05:19 Baso % (Auto) 0.7 % (0.0-1.8) 09/03/20 05:19 Lymph # (Auto) 1.7 K/mm3 (1.2-5.4) 09/03/20 05:19 [place] # (Auto) 0.3 K/mm3 (0.0-0.8) 09/03/20 05:19 Eos # (Auto) 0.0 K/mm3 (0.0-0.4) 09/03/20 05:19 Baso # (Auto) 0.0 K/mm3 (0.0-0.1) 09/03/20 05:19 Seg Neutrophils % 48.8 % (40.0-70.0) 09/03/20 05:19 Seg Neutrophils # 1.9 K/mm3 (1.8-7.7) 09/03/20 05:19 Sodium 138 mmol/L (137-145) 09/05/20 05:47 Potassium 3.7 mmol/L (3.6-5.0) 09/05/20 05:47 Chloride 103.4 mmol/L (98-107) 09/05/20 05:47 Carbon Dioxide 29 mmol/L (22-30) 09/05/20 05:47 Anion Gap 9 mmol/L 09/05/20 05:47 BUN 5 mg/dL (7-17) L 09/05/20 05:47 Creatinine 0.8 mg/dL (0.6-1.2) 09/05/20 05:47 Estimated GFR > 60 ml/min 09/05/20 05:47 BUN/Creatinine Ratio 6 % 09/05/20 05:47 Glucose 108 mg/dL (65-100) H 09/05/20 05:47 Calcium 7.9 mg/dL (8.4-10.2) L 09/05/20 05:47 Magnesium 1.70 mg/dL (1.7-2.3) 09/02/20 18:02 Total Bilirubin 0.30 mg/dL (0.1-1.2) 09/02/20 14:49 AST 18 units/L (5-40) 09/02/20 14:49 ALT 13 units/L (7-56) 09/02/20 14:49 Alkaline Phosphatase 102 units/L (35-129) 09/02/20 14:49 Total Protein 6.6 g/dL (6.3-8.2) 09/02/20 14:49 Albumin 3.8 g/dL (3.9-5) L 09/02/20 14:49 Albumin/Globulin Ratio 1.4 % 09/02/20 14:49 Lipase 16 units/L (13-60) 09/02/20 14:49 HCG, Qual Negative (Negative) 09/02/20 14:49 Urine Color [place] (Yellow) 09/02/20 18:05 Urine Turbidity Cloudy (Clear) 09/02/20 18:05 Urine pH 5.0 (5.0-7.0) 09/02/20 18:05 Ur Specific [place] 1.036 (1.003-1.030) H 09/02/20 18:05 Urine Protein 100 mg/dl mg/dL (Negative) 09/02/20 18:05 Urine Glucose (UA) Neg mg/dL (Negative) 09/02/20 18:05 Urine Ketones Neg mg/dL (Negative) 09/02/20 18:05 Urine Blood Lg (Negative) 09/02/20 18:05 Urine Nitrite Neg (Negative) 09/02/20 18:05 Urine Bilirubin Neg (Negative) 09/02/20 18:05 Urine Urobilinogen 2.0 mg/dL (<2.0) 09/02/20 18:05 Ur Leukocyte Esterase Neg (Negative) 09/02/20 18:05 Urine WBC (Auto) 1.0 /HPF (0.0-6.0) 09/02/20 18:05 Urine RBC (Auto) > 182.0 /HPF (0.0-6.0) 09/02/20 18:05 Calcium Oxalate Crystal 2+ 09/02/20 18:05 Urine Mucus 3+ /HPF 09/02/20 18:05 Marcano/IV: Voiding Method Bedpan Active Medications - Current Medications Current Medications: Generic Name Dose Route Start Last Admin Trade Name Freq PRN Reason Stop Dose Admin Acetaminophen 650 mg 09/02/20 22:05 Acetaminophen 325 Mg Tab PO Q4H PRN Pain MILD(1-3)/Fever >100.5/RENAE Albuterol/Ipratropium 1 ampul 09/05/20 08:00 Ipratropium/Albuterol Sulfate 3 Ml Ampul.Neb IH TIDRT RUMA Famotidine 20 mg 09/03/20 10:00 09/04/20 22:18 Famotidine 20 Mg/2 Ml Inj IV 20 mg BID RUMA Administration Hydralazine HCl 10 mg 09/02/20 22:06 Hydralazine 20 Mg/1 Ml Inj IV Q6H PRN htn Dextrose/Sodium Chloride 1,000 mls @ 100 mls/hr 09/02/20 23:00 09/04/20 13:58 D5/0.45ns IV 100 mls/hr DIRECT RUMA Administration Lactated Ringer's 1,000 mls @ 125 mls/hr 09/03/20 10:00 09/03/20 10:14 Lactated Ringers IV 125 mls/hr DIRECT RUMA Administration Morphine Sulfate 2 mg 09/02/20 22:05 09/04/20 22:18 Morphine 2 Mg/1 Ml Inj IV 2 mg Q4H PRN Administration Pain, Moderate (4-6) Ondansetron HCl 4 mg 09/02/20 22:05 Ondansetron 4 Mg/2 Ml Inj IV Q8H PRN Nausea And Vomiting Sodium Chloride 10 ml 09/03/20 10:00 09/04/20 09:08 Sodium Chloride 0.9% 10 Ml Flush Syringe IV 10 ml BID RUMA Administration Sodium Chloride 10 ml 09/02/20 22:05 Sodium Chloride 0.9% 10 Ml Flush Syringe IV PRN PRN LINE FLUSH Nutrition/Malnutrition Assess - Dietary Evaluation Nutrition/Malnutrition Findings: Nutrition Notes Start: 09/03/20 08:26 Freq: Status: Active Protocol: Document 09/03/20 08:27 CW (Rec: 09/03/20 08:36 CW [id number]) Nutrition Notes Need for Assessment generated from: MST Initial or Follow up Assessment Other Pertinent Diagnosis SBO, h/s gastric bypass Current Diet NPO Labs/Tests Reviewed Pertinent Medications D5 1/2 NS at 100 ml/hr Zofran NS at 1L Height 5 ft 5 in Weight 56.699 kg Usual Body Weight 61.4 kg [place] Body Weight (kg) 56.81 BMI 20.7 Intake Prior to Admission Poor Weight change and time frame 8% weight loss x 6 months per pt Weight Status Appropriate Subjective/Other Information RN screen for MST for loss of appetite. Pt reports loss of appetite x3 days r/t pain. Pt is c/o hunger at this time. Reducated on importance of NPO order. UBW of 135 lbs per pt. Burn Absent Trauma Absent GI Symptoms Nausea Food Allergy Yes Skin Integrity/Comment Intact Current % PO Negligible Minimum of two criteria No Energy Intake (severe) < or equal to 50% Estimated Energy Requirement > or equal to 5 days #1 Nutrition Diagnosis Inadequate oral intake Etiology abd pain As Evidenced by Signs and Symptoms pt r/o loss of appetite r/t to abd pain Is patient on ventilator? No Is Patient Ambulatory and/or Out of Bed No REE-([facility]-confined to bed) [phone] Calculation Used for Recommendations [facility] Additional Notes protein needs: 45 - 57g (0.8 - 1 g/kgBW) fluid needs: 1 ml/kcal Nutrition Intervention Change Diet Order: Diet advancement when medically feasible Goal #1 Diet advancement Anticipated Discharge Needs: GI soft diet and upgrading to regular diet as tolerated Follow-Up By: 09/07/20 Additional Comments F/U for diet advancement and intakes
--- NOTE | 2020-09-05 09:50 | Progress Note ---
Assessment and Plan POD#2 s/p laparoscopic assisted abdominal exploration with extensive lysis of adhesions thought to be the cause of SBO. Afebrile and stable tolerating full liquids. Pt can be discharged today from surgical perspective and advance diet as tolerated. she can follow up with Dr. Ohara in the next 10-14 days. needs to call to make an appointment. [phone]. Pt can shower and do not pick the dermabond off. Subjective Date of service: 09/05/20 Patient Reports: Positive: no new complaints, feels better, pain is less, tolerating liquids well (no acute events overnight. Pt is tolerating full liquids without difficulty. she says she feels ready to go home. passign flatus) Objective Vital Signs - 12hr 09/04/20 09/05/20 09/05/20 22:18 00:11 05:26 Temperature 99.0 F 99.0 F Pulse Rate 74 53 L Respiratory 18 18 18 Rate Blood Pressure 108/67 111/52 O2 Sat by Pulse 96 100 Oximetry 09/05/20 07:16 Temperature 98.5 F Pulse Rate 55 L Respiratory 20 Rate Blood Pressure 114/68 O2 Sat by Pulse 100 Oximetry - General physical appearance well developed, no distress, no pain - Respiratory normal expansion, normal respiratory effort - Abdomen soft, not distended, other (appropriately tender to palpation. incisions c/d/i) - Labs 09/03/20 05:19 09/05/20 05:47 Diabetes panel 09/04/20 09/05/20 Range/Units 09:22 05:47 Sodium 133 L 138 (137-145) mmol/L Potassium 4.2 3.7 (3.6-5.0) mmol/L Chloride 101.6 103.4 (98-107) mmol/L Carbon Dioxide 26 29 (22-30) mmol/L BUN 7 5 L (7-17) mg/dL Creatinine 0.9 0.8 (0.6-1.2) mg/dL Glucose 111 H 108 H (65-100) mg/dL Calcium 7.6 L 7.9 L (8.4-10.2) mg/dL Calcium panel 09/04/20 09/05/20 Range/Units 09:22 05:47 Calcium 7.6 L 7.9 L (8.4-10.2) mg/dL Pituitary panel 09/04/20 09/05/20 Range/Units 09:22 05:47 Sodium 133 L 138 (137-145) mmol/L Potassium 4.2 3.7 (3.6-5.0) mmol/L Chloride 101.6 103.4 (98-107) mmol/L Carbon Dioxide 26 29 (22-30) mmol/L BUN 7 5 L (7-17) mg/dL Creatinine 0.9 0.8 (0.6-1.2) mg/dL Glucose 111 H 108 H (65-100) mg/dL Calcium 7.6 L 7.9 L (8.4-10.2) mg/dL Adrenal panel 09/04/20 09/05/20 Range/Units 09:22 05:47 Sodium 133 L 138 (137-145) mmol/L Potassium 4.2 3.7 (3.6-5.0) mmol/L Chloride 101.6 103.4 (98-107) mmol/L Carbon Dioxide 26 29 (22-30) mmol/L BUN 7 5 L (7-17) mg/dL Creatinine 0.9 0.8 (0.6-1.2) mg/dL Glucose 111 H 108 H (65-100) mg/dL Calcium 7.6 L 7.9 L (8.4-10.2) mg/dL
[2020-09-05] MEDS ORDERED: KETOROLAC 30 MG/1 ML INJ IV ONE (10:06)
[2020-09-05] MEDS: MORPHINE 2 MG/1 ML INJ IV PRN ×2 (10:49→22:27)
[2020-09-05] MEDS: FAMOTIDINE 20 MG/2 ML INJ IV SCH ×2 (10:53→22:23)
[2020-09-05] MEDS: IPRATROPIUM/ALBUTEROL SULFATE 3 ML AMPUL.NEB IH SCH ×2 (11:25→15:36)
[2020-09-05] MEDS: oxyCODONE /ACETAMINOPHEN 5-325MG TAB PO PRN (18:49)
[2020-09-06] MEDS: LACTATED RINGERS 1,000 ML IV SCH (02:12)
[2020-09-06] MEDS: IPRATROPIUM/ALBUTEROL SULFATE 3 ML AMPUL.NEB IH SCH ×3 (03:25→13:29)
[2020-09-06] MEDS: MORPHINE 2 MG/1 ML INJ IV PRN (06:07)
[2020-09-06 07:37] VITALS: BP 97/40
[2020-09-06] MEDS: oxyCODONE /ACETAMINOPHEN 5-325MG TAB PO PRN (09:20)
[2020-09-06] MEDS: FAMOTIDINE 20 MG/2 ML INJ IV SCH (09:20)
[2020-09-06] MEDS ORDERED: SODIUM CHLORIDE 0.9% 1000 ML 1,000 ML IV ONE (09:30)
--- NOTE | 2020-09-06 09:39 | Progress Note ---
History Interval history: Patient seen and examined this morning still with no gas or bowel movement. Reports some mild abdominal pain States that she is ambulating some. Denies any dizziness. Hospitalist Physical - Physical exam Narrative exam: VITAL SIGNS: Reviewed. GENERAL: The patient appears normally developed, Vital signs as documented. HEAD: No signs of head trauma. EYES: Pupils are equal. Extraocular motions intact. EARS: Hearing grossly intact. MOUTH: Oropharynx is normal. NECK: No adenopathy, no JVD. CHEST: Chest with clear breath sounds bilaterally. No wheezes, rales, or rhonchi. CARDIAC: Regular rate and rhythm. S1 and S2, without murmurs, gallops, or rubs. VASCULAR: No Edema. Peripheral pulses normal and equal in all extremities. ABDOMEN: Soft, non distended. Midline surgical incision well-healed. Mild tenderness appreciated bowel sounds hypoactive MUSCULOSKELETAL: Good range of motion of all major joints. Extremities without clubbing, cyanosis or edema. NEUROLOGIC EXAM: Alert and oriented x 3 No focal sensory or strength deficits. Speech normal. Follows commands. PSYCHIATRIC: Mood normal. SKIN: detail exam as documented in skin assessment - Constitutional Vitals: Temp Pulse Resp BP Pulse Ox 97.9 F 57 L 18 97/40 100 09/06/20 07:05 09/06/20 07:05 09/06/20 09:20 09/06/20 07:05 09/06/20 07:05 General appearance: Present: no acute distress, well-nourished Results - Labs CBC & Chem 7: 09/03/20 05:19 09/05/20 05:47 Labs: Laboratory Last Values WBC 3.9 K/mm3 (4.5-11.0) L 09/03/20 05:19 RBC 3.34 M/mm3 (3.65-5.03) L 09/03/20 05:19 Hgb 10.6 gm/dl (10.1-14.3) 09/03/20 05:19 Hct 32.2 % (30.3-42.9) 09/03/20 05:19 MCV 96 fl (79-97) 09/03/20 05:19 MCH 32 pg (28-32) 09/03/20 05:19 MCHC 33 % (30-34) 09/03/20 05:19 RDW 14.2 % (13.2-15.2) 09/03/20 05:19 Plt Count 152 K/mm3 (140-440) 09/03/20 05:19 Lymph % (Auto) 42.0 % (13.4-35.0) H 09/03/20 05:19 [place] % (Auto) 8.0 % (0.0-7.3) H 09/03/20 05:19 Eos % (Auto) 0.5 % (0.0-4.3) 09/03/20 05:19 Baso % (Auto) 0.7 % (0.0-1.8) 09/03/20 05:19 Lymph # (Auto) 1.7 K/mm3 (1.2-5.4) 09/03/20 05:19 [place] # (Auto) 0.3 K/mm3 (0.0-0.8) 09/03/20 05:19 Eos # (Auto) 0.0 K/mm3 (0.0-0.4) 09/03/20 05:19 Baso # (Auto) 0.0 K/mm3 (0.0-0.1) 09/03/20 05:19 Seg Neutrophils % 48.8 % (40.0-70.0) 09/03/20 05:19 Seg Neutrophils # 1.9 K/mm3 (1.8-7.7) 09/03/20 05:19 Sodium 138 mmol/L (137-145) 09/05/20 05:47 Potassium 3.7 mmol/L (3.6-5.0) 09/05/20 05:47 Chloride 103.4 mmol/L (98-107) 09/05/20 05:47 Carbon Dioxide 29 mmol/L (22-30) 09/05/20 05:47 Anion Gap 9 mmol/L 09/05/20 05:47 BUN 5 mg/dL (7-17) L 09/05/20 05:47 Creatinine 0.8 mg/dL (0.6-1.2) 09/05/20 05:47 Estimated GFR > 60 ml/min 09/05/20 05:47 BUN/Creatinine Ratio 6 % 09/05/20 05:47 Glucose 108 mg/dL (65-100) H 09/05/20 05:47 Calcium 7.9 mg/dL (8.4-10.2) L 09/05/20 05:47 Magnesium 1.70 mg/dL (1.7-2.3) 09/02/20 18:02 Total Bilirubin 0.30 mg/dL (0.1-1.2) 09/02/20 14:49 AST 18 units/L (5-40) 09/02/20 14:49 ALT 13 units/L (7-56) 09/02/20 14:49 Alkaline Phosphatase 102 units/L (35-129) 09/02/20 14:49 Total Protein 6.6 g/dL (6.3-8.2) 09/02/20 14:49 Albumin 3.8 g/dL (3.9-5) L 09/02/20 14:49 Albumin/Globulin Ratio 1.4 % 09/02/20 14:49 Lipase 16 units/L (13-60) 09/02/20 14:49 HCG, Qual Negative (Negative) 09/02/20 14:49 Urine Color Ileana (Yellow) 09/02/20 18:05 Urine Turbidity Cloudy (Clear) 09/02/20 18:05 Urine pH 5.0 (5.0-7.0) 09/02/20 18:05 Ur Specific [place] 1.036 (1.003-1.030) H 09/02/20 18:05 Urine Protein 100 mg/dl mg/dL (Negative) 09/02/20 18:05 Urine Glucose (UA) Neg mg/dL (Negative) 09/02/20 18:05 Urine Ketones Neg mg/dL (Negative) 09/02/20 18:05 Urine Blood Lg (Negative) 09/02/20 18:05 Urine Nitrite Neg (Negative) 09/02/20 18:05 Urine Bilirubin Neg (Negative) 09/02/20 18:05 Urine Urobilinogen 2.0 mg/dL (<2.0) 09/02/20 18:05 Ur Leukocyte Esterase Neg (Negative) 09/02/20 18:05 Urine WBC (Auto) 1.0 /HPF (0.0-6.0) 09/02/20 18:05 Urine RBC (Auto) > 182.0 /HPF (0.0-6.0) 09/02/20 18:05 Calcium Oxalate Crystal 2+ 09/02/20 18:05 Urine Mucus 3+ /HPF 09/02/20 18:05 Marcano/IV: Voiding Method Bedpan Active Medications - Current Medications Current Medications: Generic Name Dose Route Start Last Admin Trade Name Freq PRN Reason Stop Dose Admin Acetaminophen 650 mg 09/02/20 22:05 Acetaminophen 325 Mg Tab PO Q4H PRN Pain MILD(1-3)/Fever >100.5/RENAE Albuterol/Ipratropium 1 ampul 09/05/20 08:00 09/06/20 03:25 Ipratropium/Albuterol Sulfate 3 Ml Ampul.Neb IH Not Given TIDRT RUMA Famotidine 20 mg 09/03/20 10:00 09/06/20 09:20 Famotidine 20 Mg/2 Ml Inj IV 20 mg BID RUMA Administration Hydralazine HCl 10 mg 09/02/20 22:06 Hydralazine 20 Mg/1 Ml Inj IV Q6H PRN htn Dextrose/Sodium Chloride 1,000 mls @ 100 mls/hr 09/02/20 23:00 09/05/20 20:25 D5/0.45ns IV Infused DIRECT RUMA Infusion Lactated Ringer's 1,000 mls @ 125 mls/hr 09/03/20 10:00 09/06/20 02:12 Lactated Ringers IV 125 mls/hr DIRECT RUMA Administration Sodium Chloride 1,000 mls @ 999 mls/hr 09/06/20 09:30 09/06/20 09:31 Nacl 0.9% 1000 Ml IV 09/06/20 10:30 999 mls/hr BOLUS ONE Administration Morphine Sulfate 2 mg 09/02/20 22:05 09/06/20 06:07 Morphine 2 Mg/1 Ml Inj IV 2 mg Q4H PRN Administration Pain, Moderate (4-6) Ondansetron HCl 4 mg 09/02/20 22:05 09/05/20 22:27 Ondansetron 4 Mg/2 Ml Inj IV 4 mg Q8H PRN Administration Nausea And Vomiting Oxycodone/Acetaminophen 2 tab 09/05/20 09:12 09/06/20 09:20 Oxycodone /Acetaminophen 5-325mg Tab PO 2 tab Q4H PRN Administration Pain, Moderate (4-6) Sodium Chloride 10 ml 09/03/20 10:00 09/06/20 09:20 Sodium Chloride 0.9% 10 Ml Flush Syringe IV 10 ml BID RUMA Administration Sodium Chloride 10 ml 09/02/20 22:05 Sodium Chloride 0.9% 10 Ml Flush Syringe IV PRN PRN LINE FLUSH Nutrition/Malnutrition Assess - Dietary Evaluation Nutrition/Malnutrition Findings: Nutrition Notes Start: 09/03/20 08:26 Freq: Status: Active Protocol: Document 09/03/20 08:27 CW (Rec: 09/03/20 08:36 CW [id number]) Nutrition Notes Need for Assessment generated from: MST Initial or Follow up Assessment Other Pertinent Diagnosis SBO, h/s gastric bypass Current Diet NPO Labs/Tests Reviewed Pertinent Medications D5 1/2 NS at 100 ml/hr Zofran NS at 1L Height 5 ft 5 in Weight 56.699 kg Usual Body Weight 61.4 kg Ava Body Weight (kg) 56.81 BMI 20.7 Intake Prior to Admission Poor Weight change and time frame 8% weight loss x 6 months per pt Weight Status Appropriate Subjective/Other Information RN screen for MST for loss of appetite. Pt reports loss of appetite x3 days r/t pain. Pt is c/o hunger at this time. Reducated on importance of NPO order. UBW of 135 lbs per pt. Burn Absent Trauma Absent GI Symptoms Nausea Food Allergy Yes Skin Integrity/Comment Intact Current % PO Negligible Minimum of two criteria No Energy Intake (severe) < or equal to 50% Estimated Energy Requirement > or equal to 5 days #1 Nutrition Diagnosis Inadequate oral intake Etiology abd pain As Evidenced by Signs and Symptoms pt r/o loss of appetite r/t to abd pain Is patient on ventilator? No Is Patient Ambulatory and/or Out of Bed No REE-([facility]-confined to bed) [phone] Calculation Used for Recommendations [facility] Additional Notes protein needs: 45 - 57g (0.8 - 1 g/kgBW) fluid needs: 1 ml/kcal Nutrition Intervention Change Diet Order: Diet advancement when medically feasible Goal #1 Diet advancement Anticipated Discharge Needs: GI soft diet and upgrading to regular diet as tolerated Follow-Up By: 09/07/20 Additional Comments F/U for diet advancement and intakes
--- NOTE | 2020-09-06 09:47 | Discharge Summary ---
Providers - Providers Date of Admission: 09/02/20 21:47 Attending physician: CYNTHIA SANTOS MD 09/02/20 22:07 Consult to Physician [CONS] Routine Comment: Consulting Provider: KINA LEE Physician Instructions: Reason For Exam: esrd Primary care physician: DIETITIAN CHIEF Hospitalization Reason for admission: Abdominal pain Condition: Stable Hospital course: 49-year-old female with past medical history of multiple sclerosis and gastric bypass surgery was brought to the emergency department with complaints of left upper abdominal pain with associated nausea, vomiting, and constipation worsening for 2 weeks. Patient states the pain worsened 5/10. Last bowel movement was yesterday. States she has been having fewer bowel movements since onset of her pain. She is unsure whether she is currently taking steroids or antibiotics. Denies fever, chills, rectal bleeding, vaginal bleeding, hematemesis, vaginal discharge, rash. Denies other complaints at this time. 09/03/2020 -Patient has partial small bowel obstruction and general surgery evaluated and recommend diagnostic exploratory laparotomy. 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 -Hyponatremia; will repeat BMP tomorrow 09/05/2020 -Patient tolerated clear liquid diet and will advance to full liquid diet -Patient was seen by general surgery cleared her for discharge but patient is complaining severe abdominal pain 10 out of 10 -Patient can be discharged tomorrow if pain is controlled. Patient was noted to have partial small bowel obstruction and underwent a laparoscopic-assisted abdominal exploration with extensive lysis of adhesion. She had intermittent abdominal pain She was planned to be discharged yesterday but had significant abdominal pain. She tells me this morning that she has not passed flatus but had told the surgeon that she was passing flatus. Have discussed with the nurse that to evaluate her today encourage her to ambulate and when she passes flatus can be discharged. She is tolerating diet. Today's postop day s/p laparoscopic assisted abdominal exploration with extensive lysis of adhesions thought to be the cause of SBO. She remains afebrile and is tolerating diet without any worsening pain. Discharge diagnosis Small bowel obstruction Multiple sclerosis Dilated bile duct Multiple pulmonary nodules for which was recommended outpatient pulmonary follow-up Disposition: DC-01 TO HOME OR SELFCARE Final Discharge Diagnosis (Prints w/discharge instructions): Small bowel obstruction Time spent for discharge: 35-minute Core Measure Documentation - Palliative Care Palliative Care/ Comfort Measures: Not Applicable - Core Measures Any of the following diagnoses?: none Exam - Physical Exam Narrative exam: VITAL SIGNS: Reviewed. GENERAL: The patient appears normally developed, Vital signs as documented. HEAD: No signs of head trauma. EYES: Pupils are equal. Extraocular motions intact. EARS: Hearing grossly intact. MOUTH: Oropharynx is normal. NECK: No adenopathy, no JVD. CHEST: Chest with clear breath sounds bilaterally. No wheezes, rales, or rhonchi. CARDIAC: Regular rate and rhythm. S1 and S2, without murmurs, gallops, or rubs. VASCULAR: No Edema. Peripheral pulses normal and equal in all extremities. ABDOMEN: Soft, non distended. Midline surgical incision well-healed. Mild tenderness appreciated bowel sounds hypoactive MUSCULOSKELETAL: Good range of motion of all major joints. Extremities without clubbing, cyanosis or edema. NEUROLOGIC EXAM: Alert and oriented x 3 No focal sensory or strength deficits. Speech normal. Follows commands. PSYCHIATRIC: Mood normal. SKIN: detail exam as documented in skin assessment - Constitutional Vitals: Temp Pulse Resp BP Pulse Ox 97.9 F 57 L 18 97/40 100 09/06/20 07:05 09/06/20 07:05 09/06/20 09:20 09/06/20 07:05 09/06/20 07:05 Plan Activity: advance as tolerated, fall precautions Diet: advance as tolerated Wound: per your surgeon's advice Special Instructions: record daily weights, record daily BP diary Follow up with: PRIMARY CARE, [Primary Care Provider] - 7 Days KINA LEE DO [Staff Physician] - 7 Days Prescriptions: Docusate Sodium [Colace] 100 mg PO BID #30 capsule oxyCODONE /ACETAMINOPHEN [Percocet 5/325] 1 tab PO Q6HR PRN #10 tablet PRN Reason: Pain
[2020-09-06] MEDS: D5W/0.45% NACL 1,000 ML IV SCH (12:25)
== END 2020-09-06 16:50 | disposition home or self-care (01) | DRG 337 ==
LOC: ED 13:55 → 3B-SURG 21:47
PROVIDERS: ADMIT Hospitalist; ATTEND Internal Medicine
PROC: 0DJU0ZZ Inspection of Omentum, Open Approach (ICD-10-PCS; principal; 2020-09-03)
PROC: 0DNU4ZZ Release Omentum, Percutaneous Endoscopic Approach (ICD-10-PCS; 2020-09-03)
DX: K56.609 Unspecified intestinal obstruction, unspecified as to partial versus complete obstruction (principal); K83.8 Other specified diseases of biliary tract; R91.8 Other nonspecific abnormal finding of lung field; K59.00 Constipation, unspecified; K21.9 Gastro-esophageal reflux disease without esophagitis; K66.0 Peritoneal adhesions (postprocedural) (postinfection); G35 Multiple sclerosis; Z88.8 Allergy status to other drugs, medicaments and biological substances; Z91.013 Allergy to seafood; Z98.84 Bariatric surgery status; Z87.01 Personal history of pneumonia (recurrent); Z93.0 Tracheostomy status; Z79.899 Other long term (current) drug therapy; Z79.891 Long term (current) use of opiate analgesic; Z79.01 Long term (current) use of anticoagulants
CPT/HCPCS: 36415; 74177; 80048; 80053; 81001; 83690; 83735; 84703; 85025; 94640; 96361; 96374; 96375; 96376; G0378; J1100; J1170; J1885; J2250; J2270; J2405; J2704; J2710; J3010; J7030; J7120; Q9967

== ENCOUNTER 2020-11-17 15:00 | Inpatient (IN) | payer SELFPAY ==
--- NOTE | 2020-11-17 15:08 | Emergency Department Report ---
Blank Doc - Documentation Documentation: 49-year-old female that presents with chest pain, shortness of breath, fever, chills, weakness times several days. Tachycardia and febrile in triage. 1- This is a initial triage assessment/medical screening only. Full assessment and work-up will be completed once the patient is in proper hospital gown, ED bed and in a private room setting. This initial assessment/diagnostic orders/clinical plan/ treatment(s) is/are subject to change based on pt's health status, clinical progression and re-assessment by fellow clinical providers in the ED. Further treatment and workup at subsequent clinical providers discretion. Patient/guardians urged not to elope from ED as their condition may be serious if not clinically assessed and managed. 2-cardiac work-up 3-possible PUI
[2020-11-17] MEDS ORDERED: SODIUM CHLORIDE 0.9% 1000 ML 1,000 ML IV ONE (15:25)
[2020-11-17] MEDS ORDERED: ACETAMINOPHEN 500 MG TAB PO ONE (15:26)
[2020-11-17 15:36] LABS: Hemoglobin 9.4 gm/dl (10.1-14.3); Mean Corpuscular HGB Conc 34 % (30-34); Mean Corpuscular Volume 93 fl (79-97); Platelet Count 468 K/mm3 (140-440); Red Blood Count 3.02 M/mm3 (3.65-5.03); Red Cell Distribution Width 14.9 % (13.2-15.2)
[2020-11-17] MEDS ORDERED: ONDANSETRON 4 MG/2 ML INJ IV ONE (15:39)
[2020-11-17] MEDS ORDERED: fentaNYL 100 MCG/2 ML INJ IV ONE (15:39)
--- NOTE | 2020-11-17 15:44 | Emergency Department Report ---
HPI - General Chief Complaint: Chest Pain Time Seen by Provider: 11/17/20 15:06 - HPI HPI: Room 19 The patient is a 49-year-old female present with chief complaint of cough. Patient states for the past 4 days she has had a cough productive of yellowish sputum. Patient states she is coughed so much it causes soreness in her chest. Patient is to fever at home as well as rhinorrhea. Patient states she has had a decrease in her sense of taste. The patient states she has not received a Covid vaccination as she does not have any known Covid exposure ED Past Medical Hx - Past Medical History Previous Medical History?: Yes Hx Hypertension: Yes Hx Congestive Heart Failure: Yes Hx GERD: Yes Additional medical history: MS - Surgical History Additional Surgical History: gastric bypass, trach-resolved, feeding tube/removed - Family History Family history: no significant - Social History Smoking Status: Never Smoker Substance Use Type: None (Denies illicit drug use) - Medications Home Medications: Home Medications Medication Instructions Recorded Confirmed Last Taken Type Docusate Sodium [Colace] 100 mg PO BID #30 capsule 09/06/20 Unknown Rx oxyCODONE /ACETAMINOPHEN [Percocet 1 tab PO Q6HR PRN #10 tablet 09/06/20 Unknown Rx 5/325] ED Review of Systems ROS: Stated complaint: CHEST PAINS Other details as noted in HPI Constitutional: fever Eyes: denies: eye pain ENT: other (Decreased sense of taste) Respiratory: cough, shortness of breath Cardiovascular: as per HPI Endocrine: no symptoms reported Gastrointestinal: denies: vomiting Genitourinary: denies: dysuria Musculoskeletal: myalgia Neurological: denies: headache Physical Exam - Physical Exam Vital Signs: Vital Signs 11/17/20 15:04 Temperature 101.0 F H Pulse Rate 101 H Respiratory 20 Rate Blood Pressure 92/55 O2 Sat by Pulse 96 Oximetry Physical Exam: GENERAL: The patient is well-developed well-nourished female lying on stretcher not appearing to be in acute distress. [] HEENT: Normocephalic. Atraumatic. Extraocular motions are intact. Patient has moist mucous membranes. NECK: Supple. Trachea midline CHEST/LUNGS: Clear to auscultation. There is no respiratory distress noted. HEART/CARDIOVASCULAR: Regular. There is no tachycardia. There is no gallop rub or murmur. ABDOMEN: Abdomen is soft, nontender. Patient has normal bowel sounds. There is no abdominal distention. SKIN: There is no rash. There is no edema. There is no diaphoresis. NEURO: The patient is awake, alert, and oriented. The patient is cooperative. The patient has no focal neurologic deficits. The patient has normal speech MUSCULOSKELETAL: There is no evidence of acute injury. ED Course Vital Signs 11/17/20 15:04 Temperature 101.0 F H Pulse Rate 101 H Respiratory 20 Rate Blood Pressure 92/55 O2 Sat by Pulse 96 Oximetry ED Medical Decision Making - Lab Data Result diagrams: 11/17/20 15:12 11/17/20 15:12 Laboratory Tests 11/17/20 11/17/20 11/17/20 15:12 15:12 15:12 WBC 12.2 H RBC 3.02 L Hgb 9.4 L Hct 28.0 L MCV 93 MCH 31 MCHC 34 RDW 14.9 Plt Count 468 H Add Manual Diff Complete Total Counted 100 Seg Neuts % (Manual) 88.0 H Lymphocytes % (Manual) 6.0 L Monocytes % (Manual) 6.0 Nucleated RBC % Not Reportable Seg Neutrophils # Man 10.7 H Band Neutrophils # 0.0 Lymphocytes # (Manual) 0.7 L Abs React Lymphs (Man) 0.0 Monocytes # (Manual) 0.7 Eosinophils # (Manual) 0.0 Basophils # (Manual) 0.0 Metamyelocytes # 0.0 Myelocytes # 0.0 Promyelocytes # 0.0 Blast Cells # 0.0 WBC Morphology Not Reportable Hypersegmented Neuts Not Reportable Hyposegmented Neuts Not Reportable Hypogranular Neuts Not Reportable Smudge Cells Not Reportable Toxic Granulation Not Reportable Toxic Vacuolation Not Reportable Dohle Bodies Not Reportable Pelger-Huet Anomaly Not Reportable Anabela Rods Not Reportable Platelet Estimate Not Reportable Clumped Platelets Not Reportable Plt Clumps, EDTA Not Reportable Large Platelets Not Reportable Giant Platelets Not Reportable Platelet Satelliting Not Reportable Plt Morphology Comment Not Reportable RBC Morphology Normal Dimorphic RBCs Not Reportable Polychromasia Not Reportable Hypochromasia Not Reportable Poikilocytosis Not Reportable Anisocytosis Not Reportable Microcytosis Not Reportable Macrocytosis Not Reportable Spherocytes Not Reportable Pappenheimer Bodies Not Reportable Sickle Cells Not Reportable Target Cells Not Reportable Tear Drop Cells Not Reportable Ovalocytes Not Reportable Helmet Cells Not Reportable [place] Bodies Not Reportable [place] Rings Not Reportable Laura Cells Not Reportable Bite Cells Not Reportable Crenated Cell Not Reportable Elliptocytes Not Reportable Acanthocytes (Spur) Not Reportable Rouleaux Not Reportable Hemoglobin C Crystals Not Reportable Schistocytes Not Reportable Malaria parasites Not Reportable Justin Bodies Not Reportable Hem Pathologist Commnt No PT INR APTT Sodium 133 L Potassium 3.3 L Chloride 96.4 L Carbon Dioxide 27 Anion Gap 13 BUN 11 Creatinine 0.7 Estimated GFR > 60 BUN/Creatinine Ratio 16 Glucose 109 H Lactic Acid Calcium 8.8 Total Bilirubin 0.30 AST 12 ALT 7 Alkaline Phosphatase 102 Troponin T Total Protein 6.8 Albumin 2.4 L Albumin/Globulin Ratio 0.5 HCG, Qual Negative 11/17/20 11/17/20 11/17/20 15:12 15:12 15:12 WBC RBC Hgb Hct MCV MCH MCHC RDW Plt Count Add Manual Diff Total Counted Seg Neuts % (Manual) Lymphocytes % (Manual) Monocytes % (Manual) Nucleated RBC % Seg Neutrophils # Man Band Neutrophils # Lymphocytes # (Manual) Abs React Lymphs (Man) Monocytes # (Manual) Eosinophils # (Manual) Basophils # (Manual) Metamyelocytes # Myelocytes # Promyelocytes # Blast Cells # WBC Morphology Hypersegmented Neuts Hyposegmented Neuts Hypogranular Neuts Smudge Cells Toxic Granulation Toxic Vacuolation Dohle Bodies Pelger-Huet Anomaly Anabela Rods Platelet Estimate Clumped Platelets Plt Clumps, EDTA Large Platelets Giant Platelets Platelet Satelliting Plt Morphology Comment RBC Morphology Dimorphic RBCs Polychromasia Hypochromasia Poikilocytosis Anisocytosis Microcytosis Macrocytosis Spherocytes Pappenheimer Bodies Sickle Cells Target Cells Tear Drop Cells Ovalocytes Helmet Cells [place] Bodies [place] Rings Laura Cells Bite Cells Crenated Cell Elliptocytes Acanthocytes (Spur) Rouleaux Hemoglobin C Crystals Schistocytes Malaria parasites Justin Bodies Hem Pathologist Commnt PT 13.3 INR 0.95 APTT 31.5 Sodium Potassium Chloride Carbon Dioxide Anion Gap BUN Creatinine Estimated GFR BUN/Creatinine Ratio Glucose Lactic Acid 2.30 H* Calcium Total Bilirubin AST ALT Alkaline Phosphatase Troponin T < 0.010 Total Protein Albumin Albumin/Globulin Ratio HCG, Qual - EKG Data -: EKG Interpreted by Me EKG shows normal: sinus rhythm Rate: normal - EKG Data When compared to previous EKG there are: previous EKG unavailable Interpretation: nonspecific ST-T wave mikel (T wave inversion lead V2) - Radiology Data Radiology results: report reviewed (Chest x-ray), image reviewed (Chest x-ray) interpreted by me: Chest x-ray-left lower lobe infiltrate. No pneumothorax [facility] [address] [place] [address] XRay Report Signed Patient: EMILY ZAVALA MR#: [id number] 0 : 1970 Acct:[id number] Age/Sex: 49 / F ADM Date: 11/17/20 Loc: ED Attending Dr: Ordering Physician: CHLOE MERCHANT MD Date of Service: 11/17/20 Procedure(s): XR chest 1V ap Accession Number(s): [id number] cc: CHLOE MERCHANT MD Fluoro Time In Minutes: CHEST 1 VIEW 11/17/2020 3:27 PM INDICATION / CLINICAL INFORMATION: Produc tive cough, shortness of breath. COMPARISON: September 02, 2020 FINDINGS: SUPPORT DEVICES: None. HEART / MEDIASTINUM: No significant abnormality. LUNGS / PLEURA: There are increased opacities within the left lung base. No pneumothorax. ADDITIONAL FINDINGS: No significant additional findings. IMPRESSION: 1. Increased opacities within the left lung base, which may resent infectious process in the appropriate clinical setting. Signer Name: Julian Villegas DO Signed: 11/17/2020 4:31 PM Workstation Name: [id number] Transcribed By: NS Dictated By: JULIAN VILLEGAS DO Electronically Authenticated By: JULIAN VILLEGAS DO Signed Date/Time: 11/17/20 1631 DD/ 1629 TD/TT: Print - Differential Diagnosis Pneumonia, bronchitis, COVID-19 Critical care attestation.: If time is entered above; I have spent that time in minutes in the direct care of this critically ill patient, excluding procedure time. ED Disposition Clinical Impression: Pneumonia, Suspected COVID-19 virus infection, Shortness of breath, Lactic acidosis Disposition: OP ADMIT IP TO THIS HOSP Is pt being admited?: Yes Does the pt Need Aspirin: Yes Condition: Fair Instructions: Bacterial Pneumonia (ED) Referrals: PRIMARY CARE,MD [Primary Care Provider] - 3-5 Days Time of Disposition: 18:14 (Hospitalist paged (Dr. Lozano))
[2020-11-17 15:47] LABS: INR 0.95 (0.87-1.13)
[2020-11-17 15:48] LABS: Partial Thromboplastin Time 31.5 Sec. (24.2-36.6)
[2020-11-17 15:52] LABS: Alanine Aminotransferase 7 units/L (7-56); Albumin 2.4 g/dL (3.9-5); Blood Urea Nitrogen 11 mg/dL (7-17); Calcium 8.8 mg/dL (8.4-10.2); Hemolysis Index 20
[2020-11-17 15:54] LABS: BUN/Creatinine Ratio 16
[2020-11-17] MEDS ORDERED: AZITHROMYCIN/NS 500 MG/250 ML 500 MG/250 ML BAG IV ONE (16:33)
[2020-11-17] MEDS ORDERED: cefTRIAXone/NS 1 GM/50 ML 1 GM/50 ML BAG IV ONE (16:33)
--- NOTE | 2020-11-17 16:35 | XRay Report ---
CHEST 1 VIEW 11/17/2020 3:27 PM INDICATION / CLINICAL INFORMATION: Productive cough, shortness of breath. COMPARISON: September 02, 2020 FINDINGS: SUPPORT DEVICES: None. HEART / MEDIASTINUM: No significant abnormality. LUNGS / PLEURA: There are increased opacities within the left lung base. No pneumothorax. ADDITIONAL FINDINGS: No significant additional findings. IMPRESSION: 1. Increased opacities within the left lung base, which may resent infectious process in the appropri ate clinical setting. Signer Name: Julian Ryder DO Signed: 11/17/2020 4:31 PM Workstation Name: [id number]
[2020-11-17 17:06] LABS: Total Cells Counted 100
[2020-11-17 17:07] LABS: RBC Morphology Normal
[2020-11-17] MEDS ORDERED: SODIUM CHLORIDE 0.9% 1000 ML 2,000 ML IV ONE (21:03)
--- NOTE | 2020-11-17 21:48 | History and Physical Report ---
History of Present Illness Date of examination: 11/17/20 Date of admission: 11/17/2020 Chief complaint: Cough Fever Shortness of breath History of present illness: 49-year-old -[place] female with known history of MS presenting to the emergency room today complaining of cough shortness of breath which has been ongoing for the past 4 days. She has also had some fever and runny nose. Cough has been productive for some yellowish sputum. She has had associated chest discomfort with the cough. She has also had a decrease in sensation of taste. Patient denies any headache or dizziness, no nausea vomiting and no abdominal pain. Patient denies any hematuria or dysuria. Patient denies any sick contacts and no recent travel. Denies any contact with anyone with COVID-19. She admits she has not had the Covid vaccination. During the course of her stay in the emergency room, patient she was tachypneic, tachycardic, had a fever of 101.0 F and became hypotensive in spite of boluses of IV fluid given. She was subsequently commenced on pressors. Work-up in the emergency room today, chest x-ray reveals increased opacities within the left lung base which may represent infectious process. Labs reveals leukocytosis of 12.2, lactic acidosis of 2.3 Past History Past Medical History: GERD, heart failure, hypertension, other (MS) Past Surgical History: Other (gastric bypass, trach-resolved, feeding tube/removed) Social history: no significant social history Family history: no significant family history Medications and Allergies Allergies Allergy/AdvReac Type Severity Reaction Status Date / Time heparin Allergy Unknown Verified 09/02/20 14:42 peanut Allergy Unknown Verified 11/17/20 23:13 shellfish derived Allergy Unknown Verified 09/02/20 14:42 Home Medications Medication Instructions Recorded Confirmed Last Taken Type Docusate Sodium [Colace] 100 mg PO BID #30 capsule 09/06/20 Unknown Rx oxyCODONE /ACETAMINOPHEN [Percocet 1 tab PO Q6HR PRN #10 tablet 09/06/20 Unknown Rx 5/325] Review of Systems Constitutional: fever, chills Ears, nose, mouth and throat: no nasal congestion, no sore throat Cardiovascular: no chest pain, no palpitations Respiratory: cough with sputum, shortness of breath, no wheezing Gastrointestinal: no abdominal pain, no nausea, no vomiting, no diarrhea Genitourinary Female: no flank pain, no dysuria, no hematuria Musculoskeletal: no neck pain, no low back pain Integumentary: no rash, no pruritis Neurological: no headaches, no confusion Psychiatric: no anxiety, no depression Endocrine: no polyphagia, no polydipsia, no polyuria, no nocturia Exam - Constitutional Vitals: Temp Pulse Resp BP Pulse Ox 99.7 F H 92 H 29 H 101/53 93 11/17/20 18:27 11/17/20 18:00 11/17/20 18:00 11/17/20 18:00 11/17/20 18:00 General appearance: Present: no acute distress, cachectic - EENT Eyes: Present: PERRL, EOM intact. Absent: scleral icterus ENT: hearing intact, clear oral mucosa, dentition normal - Neck Neck: Present: supple, normal ROM - Respiratory Respiratory: left: diminished - Cardiovascular Rhythm: regular Heart Sounds: Present: S1 & S2. Absent: gallop, systolic murmur, diastolic murmur - Extremities Extremities: no ischemia, pulses intact, pulses symmetrical, No edema, normal temperature, Full ROM Peripheral Pulses: within normal limits - Abdominal General gastrointestinal: Present: soft, non-tender, non-distended, normal bowel sounds. Absent: mass - Integumentary Integumentary: Present: clear, warm, dry. Absent: rash - Musculoskeletal Musculoskeletal: strength equal bilaterally - Psychiatric Psychiatric: appropriate mood/affect, intact judgment & insight, memory intact, cooperative - Neurologic Neurologic: CNII-XII intact, no focal deficits, moves all extremities HEART Score - HEART Score Troponin: Troponin T < 0.010 ng/mL (0.00-0.029) 11/17/20 18:18 Results - Labs CBC & Chem 7: 11/17/20 15:12 11/18/20 02:33 Labs: Abnormal lab results 11/17/20 11/17/20 11/17/20 Range/Units 15:12 15:12 15:12 WBC 12.2 H (4.5-11.0) K/mm3 RBC 3.02 L (3.65-5.03) M/mm3 Hgb 9.4 L (10.1-14.3) gm/dl Hct 28.0 L (30.3-42.9) % Plt Count 468 H (140-440) K/mm3 Seg Neuts % (Manual) 88.0 H (40.0-70.0) % Lymphocytes % (Manual) 6.0 L (13.4-35.0) % Seg Neutrophils # Man 10.7 H (1.8-7.7) K/mm3 Lymphocytes # (Manual) 0.7 L (1.2-5.4) K/mm3 Sodium 133 L (137-145) mmol/L Potassium 3.3 L (3.6-5.0) mmol/L Chloride 96.4 L (98-107) mmol/L Glucose 109 H (65-100) mg/dL Lactic Acid 2.30 H* (0.7-2.0) mmol/L Albumin 2.4 L (3.9-5) g/dL Assessment and Plan - Patient Problems (1) Pneumonia Current Visit: Yes Status: Acute Plan to address problem: Patient placed on empiric IV antibiotics. We will await culture results. (2) Lactic acidosis Current Visit: Yes Status: Acute Plan to address problem: Possibly secondary to the underlying infection. We will continue IV fluid and empiric IV antibiotics. We will monitor labs. (3) Multiple sclerosis Current Visit: No Status: Acute Plan to address problem: Stable. (4) Sepsis Current Visit: Yes Status: Acute Plan to address problem: Present on admission. Possibly secondary to the underlying pneumonia. We will continue on empiric IV antibiotics and IV fluid. Await culture results. (5) Person under investigation for COVID-19 Current Visit: Yes Status: Acute Plan to address problem: We will place patient on isolation precautions. We will await Covid testing. Consult placed to infectious disease for evaluation. CT angiogram of the chest being awaited. (6) DVT prophylaxis Current Visit: No Status: Acute Plan to address problem: Patient placed on subcutaneous Lovenox. (7) Full code status Current Visit: Yes Status: Acute Plan to address problem: Patient is full code.
[2020-11-18] MEDS ORDERED: NORepinephrine/NS 4 MG-250 ML 4 MG/250 ML BAG IV ONE (00:15)
[2020-11-18] MEDS ORDERED: SODIUM CHLORIDE 0.9% 1000 ML 1,000 ML IV ONE (00:25)
[2020-11-18] MEDS: NORepinephrine/NS 4 MG-250 ML 4 MG/250 ML BAG IV SCH ×2 (00:45→23:07)
--- NOTE | 2020-11-18 01:07 | Procedure Note ---
Date of procedure: 11/18/20 Pre-op diagnosis: Hypotension Post-op diagnosis: same Procedure: Patient is a 49-year-old admitted patient is an ER hold in the ER. The hospitalist service has asked me to place a central line since the patient has received multiple normal saline boluses and she still remains hypotensive. The patient consented to the procedure. Patient signed consent form. Patient voiced understanding of procedure and the risk of the procedure. Central Venous Line Placement: Indication: Hemodynamic monitoring/Intravenous access A time-out was completed verifying correct patient, procedure, site, positioning.. The patient was placed in a dependent position appropriate for central line placement based on the vein to be cannulated. The patients right neck was prepped and draped in sterile fashion. 1% Lidocaine was used to anesthetize the surrounding skin area. An ultrasound was used in a sterile fashion to identify vasculature. A triple lumen Cordis catheter was introduced into the the internal jugular using the Seldinger technique and under ultrasound guidance. The catheter was threaded smoothly over the guide wire and appropriate blood return was obtained. Each lumen of the catheter was evacuated of air and flushed with sterile saline. The catheter was then sutured in place to the skin and a sterile dressing applied. Perfusion to the extremity distal to the point of catheter insertion was checked and found to be adequate. A chest x-ray was ordered to assess for pneumothorax and line placement. Estimated Blood Loss: minimal The patient tolerated the procedure well and there were no complications. Care will be transferred back to the primary team. Estimated blood loss: minimal Pathology: none Condition: critical Disposition: no change
--- NOTE | 2020-11-18 01:31 | XRay Report ---
XR chest 1V ap INDICATION / CLINICAL INFORMATION: cvl. COMPARISON: Radiograph from yesterday. FINDINGS: SUPPORT DEVICES: Internal jugular central venous access catheter terminates in the SVC. HEART / MEDIASTINUM: Unchanged. LUNGS / PLEURA: Lung parenchyma is not significantly changed. No pneumothorax. Left costophrenic sul radha blunting with pleural stripe thickening consistent with small effusion. ADDITIONAL FINDINGS: No significant additional findings. IMPRESSION: 1. RIJ CVC terminates in SVC. Signer Name: Isaias Manning MD Signed: 11/18/2020 1:26 AM Workstation Name: [id number]
[2020-11-18] MEDS ORDERED: MORPHINE 4 MG/1 ML INJ IV ONE (01:37)
[2020-11-18 03:06] LABS: C-Reactive Protein 9.4 mg/dL (0.00-1.30)
[2020-11-18] MEDS ORDERED: ACETAMINOPHEN 325 MG TAB PO PRN (03:19)
[2020-11-18] MEDS ORDERED: MAGNESIUM HYDROXIDE (MOM) ORAL LIQD UDC PO PRN (03:19)
[2020-11-18] MEDS: SODIUM CHLORIDE 0.9% 1000 ML 1,000 ML IV SCH ×2 (06:08→21:25)
[2020-11-18 07:40] LABS: Blood Urea Nitrogen 8 mg/dL (7-17); Calcium 7.8 mg/dL (8.4-10.2); Hemolysis Index 6
[2020-11-18 07:45] LABS: BUN/Creatinine Ratio 13
[2020-11-18 07:46] LABS: Basophils # (Auto) 0.1 K/mm3 (0.0-0.1); Basophils % (Auto) 1.2 % (0.0-1.8); Eosinophils % (Auto) 0.2 % (0.0-4.3); Hematocrit 25.8 % (30.3-42.9); Hemoglobin 8.7 gm/dl (10.1-14.3); Lymphocytes # (Auto) 1.6 K/mm3 (1.2-5.4); Lymphocytes % (Auto) 14.8 % (13.4-35.0); Mean Corpuscular HGB Conc 34 % (30-34); Mean Corpuscular Volume 95 fl (79-97); Monocytes # (Auto) 0.5 K/mm3 (0.0-0.8); Monocytes % (Auto) 4.8 % (0.0-7.3); Platelet Count 528 K/mm3 (140-440); Red Blood Count 2.73 M/mm3 (3.65-5.03); Red Cell Distribution Width 14.5 % (13.2-15.2)
--- NOTE | 2020-11-18 08:46 | Cat Scan Report ---
CTA CHEST WITH CONTRAST INDICATION / CLINICAL INFORMATION: Pneumonia,R/O COVID-19,elevated D-dimer R/O PE 100 ml omni 350 . TECHNIQUE: Axial CT images were obtained through the chest after injection of IV contrast. [address] P and/or 3D reconstructions were produced. All CT scans at this location are performed using CT dose reduction for ALARA by means of automated exposure control. COMPARISON: 11/18/2020 radiograph FINDINGS: PULMONARY ARTERIES: No central or segmental pulmonary embolus. THORACIC AORTA: No significant abnormality. HEART: No significant abnormality. ADENOPATHY: No significant adenopathy. LUNGS/PLEURA: Partially loculated small left pleural effusion. Extensive tree-in-bud opacities and ai rspace consolidation noted within the left greater than right lower lobes, right middle lobe, and lef t upper lobe. There are areas of bronchial wall thickening and mucous plugging. No pneumothorax. ADDITIONAL FINDINGS: None. UPPER ABDOMEN: Redemonstrated postoperative changes of gastric bypass and unchanged splenic cystic le sushila and right renal cyst. No acute abnormality the upper abdomen. SKELETAL STRUCTURES: No significant osseous abnormality. IMPRESSION: 1. No evidence for pulmonary embolism. 2. Extensive tree-in-bud opacities and airspace consolidations throughout the lungs, most pronounced within the lung bases. Findings are associated with bronchial wall thickening and mucous plugging. Fi ndings are most consistent with bronchopneumonia. These findings would be atypical for COVID. 3. Other stable chronic and incidental findings as above. Signer Name: Momo Moon MD Signed: 11/18/2020 8:42 AM Workstation Name: [id number]
[2020-11-18 08:49] LABS: Bilirubin,Urine NEG (Negative); Blood,Urine LG (Negative); Color,Urine Red (Yellow); Mucus,Urine FEW /HPF; Urobilinogen,Urine < 2.0 mg/dL (<2.0)
[2020-11-18 08:50] LABS: RBC,Urine > 182.0 /HPF (0.0-6.0)
--- NOTE | 2020-11-18 13:12 | Consultation ---
History of Present Illness Consult date: 11/18/20 Requesting physician: BILL VILLATORO Reason for consult: other (Acute Hypoxemic Respiratory Failure; Pneumonia; COVID-19 infection) History of present illness: PCCM CONSULT NOTE (Full dictation # [id number]) Please see dictated notes for full details Past History Past Medical History: GERD, heart failure, hypertension, other (MS) Past Surgical History: Other (gastric bypass, trach-resolved, feeding tube/removed) Social history: no significant social history Family history: no significant family history Medications and Allergies Allergies Allergy/AdvReac Type Severity Reaction Status Date / Time heparin Allergy Unknown Verified 09/02/20 14:42 peanut Allergy Unknown Verified 11/17/20 23:13 shellfish derived Allergy Unknown Verified 09/02/20 14:42 Home Medications Medication Instructions Recorded Confirmed Last Taken Type Docusate Sodium [Colace] 100 mg PO BID #30 capsule 09/06/20 Unknown Rx oxyCODONE /ACETAMINOPHEN [Percocet 1 tab PO Q6HR PRN #10 tablet 09/06/20 Unknown Rx 5/325] Active Meds: Active Medications Acetaminophen (Acetaminophen 325 Mg Tab) 650 mg PO Q6H PRN PRN Reason: Pain MILD(1-3)/Fever >100.5/RENAE Enoxaparin Sodium (Enoxaparin 40 Mg/0.4 Ml Inj) 40 mg SUB-Q QDAY@2200 RUMA; Protocol Sodium Chloride (Nacl 0.9% 1000 Ml) 1,000 mls @ 125 mls/hr IV DIRECT RUMA Last Admin: 11/18/20 06:08 Dose: 125 mls/hr Documented by: Ceftriaxone Sodium (Rocephin/Ns 2 Gm/100 Ml) 2 gm in 100 mls @ 200 mls/hr IV Q24H RUMA; Protocol Azithromycin (Zithromax/Ns) 500 mg in 250 mls @ 250 mls/hr IV Q24H RUMA; Protocol Norepinephrine (Levophed Drip 4 Mg/Ns 250 Ml) 4 mg in 250 mls @ 7.5 mls/hr IV TITR RUMA; Protocol Last Titration: 11/18/20 01:45 Dose: 10 mcg/min, 37.5 mls/hr Documented by: Magnesium Hydroxide (Magnesium Hydroxide (Mom) Oral Liqd Udc) 30 ml PO Q4H PRN PRN Reason: Constipation Ondansetron HCl (Ondansetron 4 Mg/2 Ml Inj) 4 mg IV Q8H PRN PRN Reason: Nausea And Vomiting Sodium Chloride (Sodium Chloride 0.9% 10 Ml Flush Syringe) 10 ml IV BID RUMA Last Admin: 11/18/20 10:09 Dose: 10 ml Documented by: Sodium Chloride (Sodium Chloride 0.9% 10 Ml Flush Syringe) 10 ml IV PRN PRN PRN Reason: LINE FLUSH Physical Examination Vital signs: Vital Signs Temp Pulse Resp BP Pulse Ox 101.0 F H 101 H 20 92/55 96 11/17/20 15:04 11/17/20 15:04 11/17/20 15:04 11/17/20 15:04 11/17/20 15:04 Results - Laboratory Findings CBC and BMP: 11/18/20 06:30 11/18/20 06:30 PT/INR, D-dimer PT 13.3 Sec. (12.2-14.9) 11/17/20 15:12 INR 0.95 (0.87-1.13) 11/17/20 15:12 D-Dimer 2860.76 ng/mlDDU (0-234) H 11/18/20 02:33 Abnormal lab findings: Abnormal Labs 11/17/20 11/17/20 11/17/20 15:12 15:12 15:12 WBC 12.2 H RBC 3.02 L Hgb 9.4 L Hct 28.0 L Plt Count 468 H Seg Neutrophils % Seg Neuts % (Manual) 88.0 H Lymphocytes % (Manual) 6.0 L Seg Neutrophils # Seg Neutrophils # Man 10.7 H Lymphocytes # (Manual) 0.7 L D-Dimer Sodium 133 L Potassium 3.3 L Chloride 96.4 L Glucose 109 H Lactic Acid 2.30 H* Calcium C-Reactive Protein Albumin 2.4 L Urine WBC (Auto) 11/18/20 11/18/20 11/18/20 02:33 02:33 06:30 WBC RBC 2.73 L Hgb 8.7 L Hct 25.8 L Plt Count 528 H Seg Neutrophils % 79.0 H Seg Neuts % (Manual) Lymphocytes % (Manual) Seg Neutrophils # 8.4 H Seg Neutrophils # Man Lymphocytes # (Manual) D-Dimer 2860.76 H Sodium Potassium Chloride Glucose 112 H Lactic Acid Calcium C-Reactive Protein 9.40 H Albumin Urine WBC (Auto) 11/18/20 11/18/20 06:30 08:33 WBC RBC Hgb Hct Plt Count Seg Neutrophils % Seg Neuts % (Manual) Lymphocytes % (Manual) Seg Neutrophils # Seg Neutrophils # Man Lymphocytes # (Manual) D-Dimer Sodium Potassium 3.5 L Chloride Glucose 122 H Lactic Acid Calcium 7.8 L C-Reactive Protein Albumin Urine WBC (Auto) 68.0 H
--- NOTE | 2020-11-18 16:07 | Consultation ---
History of Present Illness - Reason for Consult Consult date: 11/18/20 - History of Present Illness Four 9-year-old female past medical history multiple sclerosis presented to hospital complaining of cough and shortness of breath. This began 4 days prior to admission, and was worsening since onset. She also complains subjective fevers at home. She reports the cough is productive of yellow sputum, and has an associated dysgeusia. She reports not receiving COVID-19 vaccination. She is nonseptic in the emergency room, started on pressors. Febrile to 101 with a white count of 12.2 on admission. Covid PCR negative. Procalcitonin normal. Normal renal function. Blood cultures no growth so far. Currently on ceftriaxone and azithromycin. Imaging personally: Chest CTA: No evidence of pulmonary embolism, extensive airspace consolidations throughout the lungs with likely bronchopneumonia. Review of Systems: Bold if positive, otherwise negative General: fevers, chills, rigors HEENT: visual disturbance, diplopia, eye pain Respiratory: cough, sputum, hemoptysis, shortness of breath Cardiovascular: chest pain, syncope Gastrointestinal: nausea, vomiting, diarrhea, abdominal pain Genitourinary: dysuria, hematuria, flank pain Musculoskeletal: neck pain, back pain, joint pain, edema Neurologic: headaches, seizures Hematologic: easy bruising or bleeding Endocrine: night sweats, acute weight loss Skin: rash, jaundice, redness Psychiatric: suicidal, homicidal ideation Past History Past Medical History: GERD, heart failure, hypertension, other (MS) Past Surgical History: Other (gastric bypass, trach-resolved, feeding tube/removed) Social history: no significant social history Family history: no significant family history Medications and Allergies Allergies Allergy/AdvReac Type Severity Reaction Status Date / Time heparin Allergy Unknown Verified 09/02/20 14:42 peanut Allergy Unknown Verified 11/17/20 23:13 shellfish derived Allergy Unknown Verified 09/02/20 14:42 Home Medications Medication Instructions Recorded Confirmed Last Taken Type Docusate Sodium [Colace] 100 mg PO BID #30 capsule 09/06/20 Unknown Rx oxyCODONE /ACETAMINOPHEN [Percocet 1 tab PO Q6HR PRN #10 tablet 09/06/20 Unknown Rx 5/325] Active Meds: Active Medications Acetaminophen (Acetaminophen 325 Mg Tab) 650 mg PO Q6H PRN PRN Reason: Pain MILD(1-3)/Fever >100.5/RENAE Enoxaparin Sodium (Enoxaparin 40 Mg/0.4 Ml Inj) 40 mg SUB-Q QDAY@2200 RUMA; Protocol Sodium Chloride (Nacl 0.9% 1000 Ml) 1,000 mls @ 125 mls/hr IV DIRECT RUMA Last Admin: 11/18/20 06:08 Dose: 125 mls/hr Documented by: Ceftriaxone Sodium (Rocephin/Ns 2 Gm/100 Ml) 2 gm in 100 mls @ 200 mls/hr IV Q24H RUMA; Protocol Azithromycin (Zithromax/Ns) 500 mg in 250 mls @ 250 mls/hr IV Q24H RUMA; Protocol Norepinephrine (Levophed Drip 4 Mg/Ns 250 Ml) 4 mg in 250 mls @ 7.5 mls/hr IV TITR RUMA; Protocol Last Titration: 11/18/20 01:45 Dose: 10 mcg/min, 37.5 mls/hr Documented by: Magnesium Hydroxide (Magnesium Hydroxide (Mom) Oral Liqd Udc) 30 ml PO Q4H PRN PRN Reason: Constipation Ondansetron HCl (Ondansetron 4 Mg/2 Ml Inj) 4 mg IV Q8H PRN PRN Reason: Nausea And Vomiting Sodium Chloride (Sodium Chloride 0.9% 10 Ml Flush Syringe) 10 ml IV BID [facility] Last Admin: 11/18/20 10:09 Dose: 10 ml Documented by: Sodium Chloride (Sodium Chloride 0.9% 10 Ml Flush Syringe) 10 ml IV PRN PRN PRN Reason: LINE FLUSH Physical Examination - Physical Exam Narrative exam: Physical Exam: Constitutional: Alert, cooperative. No acute distress Head, Ears, Nose: Normocephalic, atraumatic. External ears, nose normal Eyes: Conjunctivae/corneas clear. No icterus. No ptosis. Neck: Supple, no meningeal signs Oral: dentition fair, no thrush Cardiovascular: S1, S2 normal. Respiratory: Good air entry, clear to auscultation bilaterally GI: Soft, non-tender; bowel sounds normal. No peritoneal signs. Musculoskeletal: No pedal edema, no cyanosis. Skin: No rash or abscess Hem/Lymphatic: No palpable cervical or supraclavicular nodes. No lymphangitis Psych: Mood ok. Affect normal Neurological: Awake, alert, oriented. No gross abnormality - Constitutional Vitals: Vital Signs Temp Pulse Resp BP Pulse Ox 98.7 F 52 L 26 H 129/71 97 11/18/20 09:00 11/18/20 07:45 11/18/20 07:45 11/18/20 11:16 11/18/20 11:16 Temperature -Last 24 Hours Temperature 98.7 F Temperature 98.1 F Temperature 99.7 F Results - Labs CBC & Chem 7: 11/18/20 06:30 11/18/20 06:30 Labs: Abnormal lab results 11/17/20 11/18/20 11/18/20 Range/Units 15:12 02:33 02:33 RBC (3.65-5.03) M/mm3 Hgb (10.1-14.3) gm/dl Hct (30.3-42.9) % Plt Count (140-440) K/mm3 Seg Neutrophils % (40.0-70.0) % Seg Neuts % (Manual) 88.0 H (40.0-70.0) % Lymphocytes % (Manual) 6.0 L (13.4-35.0) % Seg Neutrophils # (1.8-7.7) K/mm3 Seg Neutrophils # Man 10.7 H (1.8-7.7) K/mm3 Lymphocytes # (Manual) 0.7 L (1.2-5.4) K/mm3 D-Dimer 2860.76 H (0-234) ng/mlDDU Potassium (3.6-5.0) mmol/L Glucose 112 H (65-100) mg/dL Calcium (8.4-10.2) mg/dL C-Reactive Protein 9.40 H (0.00-1.30) mg/dL Urine WBC (Auto) (0.0-6.0) /HPF 11/18/20 11/18/20 11/18/20 Range/Units 06:30 06:30 08:33 RBC 2.73 L (3.65-5.03) M/mm3 Hgb 8.7 L (10.1-14.3) gm/dl Hct 25.8 L (30.3-42.9) % Plt Count 528 H (140-440) K/mm3 Seg Neutrophils % 79.0 H (40.0-70.0) % Seg Neuts % (Manual) (40.0-70.0) % Lymphocytes % (Manual) (13.4-35.0) % Seg Neutrophils # 8.4 H (1.8-7.7) K/mm3 Seg Neutrophils # Man (1.8-7.7) K/mm3 Lymphocytes # (Manual) (1.2-5.4) K/mm3 D-Dimer (0-234) ng/mlDDU Potassium 3.5 L (3.6-5.0) mmol/L Glucose 122 H (65-100) mg/dL Calcium 7.8 L (8.4-10.2) mg/dL C-Reactive Protein (0.00-1.30) mg/dL Urine WBC (Auto) 68.0 H (0.0-6.0) /HPF Assessment and Plan Cultures: Blood culture 11/18/2020 no growth so far Covid PCR negative A/P: 49-year-old female past medical history multiple sclerosis admitted with bilateral pneumonia #Acute sepsis: With fevers, leukocytosis, tachycardia, tachypnea. Likely secondary to bilateral pneumonia. #Bilateral pneumonia: Initial Covid testing negative, findings atypical for Covid. Procalcitonin negative. Viral versus bacterial etiology #Multiple sclerosis Recs: -Continue ceftriaxone azithromycin to complete 5 days -Obtain sputum culture -Follow-up blood cultures Thank you for the consult, we will continue to follow. MD [facility] O: [phone] F: [phone]
--- NOTE | 2020-11-18 16:14 | Progress Note ---
Assessment and Plan --Bilateral pneumonia, likely community-acquired Patient placed on empiric IV antibiotics. We will await culture results. -- Lactic acidosis Possibly secondary to the underlying infection and sepsis. We will continue IV fluid and empiric IV antibiotics. We will monitor labs. -- Multiple sclerosis Clinically stable. Recommended outpatient follow-up -- Sepsis with shock Present on admission. Possibly secondary to the underlying pneumonia. We will continue on empiric IV antibiotics and IV fluid. Wean off Levophed as tolerated Await culture results. -- Person under investigation for COVID-19, ruled out with negative test Recommended for outpatient vaccination against Covid -- DVT prophylaxis Patient placed on subcutaneous Lovenox. --Full code status Patient is full code. The high probability of a clinically significant, sudden or life threatening deterioration of the [CVS, respiratory] system(s) required my full and direct attention, intervention and personal management. The aggregate critical care time was [30] minutes. This time is in addition to time spent performing reported procedures but includes the following: [x] Data Review and interpretation [x] Patient assessment and monitoring of vital signs [x] Documentation [x] Medication orders and management Brief history: 49-year-old -[place] female with known history of MS presenting to the emergency room complaining of cough shortness of breath which has been ongoing for the past 4 days. She admits she has not had the Covid vaccination. During the course of her stay in the emergency room, patient she was tachypneic, tachycardic, had a fever of 101.0 F and became hypotensive in spite of boluses of IV fluid given. She was subsequently commenced on pressors, initiated on empiric antibiotic and admitted to ICU. chest x-ray reveals increased opacities within the left lung base which may represent infectious process. Chest CTA: No evidence of pulmonary embolism, extensive airspace consolidations throughout the lungs with likely bronchopneumonia. Labs reveals leukocytosis of 12.2, lactic acidosis of 2.3 Daily clinical course: 11/18/20: pt is neg for covid19, remains on Levophed drip. Continue empiric antibiotics. Monitor at ICU and follow clinically. Nebulizer breathing treatment as needed. Subjective Date of service: 11/18/20 Interval history: Patient seen and examined. Medical records and medication list reviewed. No acute event overnight noted by the RN. Patient started on Levophed drip overnight for hypotension. Patient is tolerating diet. Covid test result is negative Discussed plan of care at bedside with patient. Objective - Exam Narrative Exam: GENERAL: Malnourished -[place] female who appears to be older than her stated age lying on bed appeared to be in no apparent distress. HEENT: Normocephalic. Atraumatic. No conjunctival congestion or icterus. Patient has moist mucous membranes. NECK: Supple. Trachea midline. CHEST/LUNGS: Few rhonchi's auscultated bilaterally, breathing nonlabored. Patient on nasal cannula O2 HEART/CARDIOVASCULAR: S1 and S2 positive. ABDOMEN: Abdomen is soft, nontender. Patient has normal bowel sounds. SKIN: There is no rash. Warm and dry. NEURO: No focal motor deficit. Follows command. MUSCULOSKELETAL: No joint effusion or tenderness. EXTRIMITY: No edema, no cyanosis or clubbing. PSYCH: Cooperative. - Constitutional Vitals: Vital Signs - 12hr 11/18/20 11/18/20 11/18/20 04:16 04:30 04:46 Temperature Pulse Rate 57 L 56 L 54 L Respiratory 24 23 24 Rate Blood Pressure 117/62 124/68 117/69 O2 Sat by Pulse 95 96 98 Oximetry 11/18/20 11/18/20 11/18/20 05:00 05:15 05:30 Temperature Pulse Rate 55 L 53 L 55 L Respiratory 20 20 19 Rate Blood Pressure 115/65 119/66 118/68 O2 Sat by Pulse 96 97 97 Oximetry 11/18/20 11/18/20 11/18/20 05:46 06:00 06:16 Temperature Pulse Rate 54 L 54 L 52 L Respiratory 20 20 19 Rate Blood Pressure 119/66 123/70 125/74 O2 Sat by Pulse 97 96 98 Oximetry 11/18/20 11/18/20 11/18/20 06:30 06:46 07:00 Temperature Pulse Rate 57 L 53 L 53 L Respiratory 22 21 26 H Rate Blood Pressure 127/77 116/54 120/63 O2 Sat by Pulse 96 97 98 Oximetry 11/18/20 11/18/20 11/18/20 07:30 07:45 08:02 Temperature Pulse Rate 53 L 52 L Respiratory 24 26 H Rate Blood Pressure 112/61 122/67 120/63 O2 Sat by Pulse 97 97 98 Oximetry 11/18/20 11/18/20 11/18/20 08:16 08:30 08:46 Temperature Pulse Rate Respiratory Rate Blood Pressure 93/55 99/52 99/52 O2 Sat by Pulse 97 Oximetry 11/18/20 11/18/20 11/18/20 09:00 09:16 09:30 Temperature 98.7 F Pulse Rate Respiratory Rate Blood Pressure 146/72 146/72 144/54 O2 Sat by Pulse 96 98 88 Oximetry 11/18/20 11/18/20 11/18/20 09:46 10:00 10:16 Temperature Pulse Rate Respiratory Rate Blood Pressure 144/54 139/68 139/68 O2 Sat by Pulse 97 97 95 Oximetry 11/18/20 11/18/20 11/18/20 10:30 10:46 11:00 Temperature Pulse Rate Respiratory Rate Blood Pressure 93/57 93/57 129/71 O2 Sat by Pulse 96 98 96 Oximetry 11/18/20 11:16 Temperature Pulse Rate Respiratory Rate Blood Pressure 129/71 O2 Sat by Pulse 97 Oximetry - Labs CBC & Chem 7: 11/20/20 05:30 11/20/20 05:30 Labs: Abnormal lab results 11/17/20 11/18/20 11/18/20 Range/Units 15:12 02:33 02:33 RBC (3.65-5.03) M/mm3 Hgb (10.1-14.3) gm/dl Hct (30.3-42.9) % Plt Count (140-440) K/mm3 Seg Neutrophils % (40.0-70.0) % Seg Neuts % (Manual) 88.0 H (40.0-70.0) % Lymphocytes % (Manual) 6.0 L (13.4-35.0) % Seg Neutrophils # (1.8-7.7) K/mm3 Seg Neutrophils # Man 10.7 H (1.8-7.7) K/mm3 Lymphocytes # (Manual) 0.7 L (1.2-5.4) K/mm3 D-Dimer 2860.76 H (0-234) ng/mlDDU Potassium (3.6-5.0) mmol/L Glucose 112 H (65-100) mg/dL Calcium (8.4-10.2) mg/dL C-Reactive Protein 9.40 H (0.00-1.30) mg/dL Urine WBC (Auto) (0.0-6.0) /HPF 11/18/20 11/18/20 11/18/20 Range/Units 06:30 06:30 08:33 RBC 2.73 L (3.65-5.03) M/mm3 Hgb 8.7 L (10.1-14.3) gm/dl Hct 25.8 L (30.3-42.9) % Plt Count 528 H (140-440) K/mm3 Seg Neutrophils % 79.0 H (40.0-70.0) % Seg Neuts % (Manual) (40.0-70.0) % Lymphocytes % (Manual) (13.4-35.0) % Seg Neutrophils # 8.4 H (1.8-7.7) K/mm3 Seg Neutrophils # Man (1.8-7.7) K/mm3 Lymphocytes # (Manual) (1.2-5.4) K/mm3 D-Dimer (0-234) ng/mlDDU Potassium 3.5 L (3.6-5.0) mmol/L Glucose 122 H (65-100) mg/dL Calcium 7.8 L (8.4-10.2) mg/dL C-Reactive Protein (0.00-1.30) mg/dL Urine WBC (Auto) 68.0 H (0.0-6.0) /HPF HEART Score - HEART Score Troponin: Troponin T < 0.010 ng/mL (0.00-0.029) 11/17/20 18:18
[2020-11-18] MEDS ORDERED: AZITHROMYCIN/NS 500 MG/250 ML 500 MG/250 ML BAG IV SCH (18:00)
[2020-11-18] MEDS: cefTRIAXone/NS 2 GM/100 ML 2 GM/100 ML BAG IV SCH (19:04)
[2020-11-18] MEDS: ONDANSETRON 4 MG/2 ML INJ IV PRN (19:27)
[2020-11-18] MEDS ORDERED: ENOXAPARIN 40 MG/0.4 ML INJ SUB-Q SCH (22:00)
[2020-11-19] MEDS ORDERED: ATROPINE 0.1% (1 MG/10 ML) CARDIAC SYRINGE IV PRN (01:27)
[2020-11-19] MEDS: SODIUM CHLORIDE 0.9% 1000 ML 1,000 ML IV SCH ×3 (04:53→21:31)
[2020-11-19] MEDS: NORepinephrine/NS 4 MG-250 ML 4 MG/250 ML BAG IV SCH ×2 (04:53→12:31)
[2020-11-19 05:56] LABS: Basophils # (Auto) 0.1 K/mm3 (0.0-0.1); Eosinophils # (Auto) 0.1 K/mm3 (0.0-0.4); Eosinophils % (Auto) 0.7 % (0.0-4.3); Hematocrit 29.4 % (30.3-42.9); Hemoglobin 9.6 gm/dl (10.1-14.3); Lymphocytes # (Auto) 1.4 K/mm3 (1.2-5.4); Lymphocytes % (Auto) 19.3 % (13.4-35.0); Mean Corpuscular HGB Conc 33 % (30-34); Mean Corpuscular Volume 94 fl (79-97); Monocytes # (Auto) 0.4 K/mm3 (0.0-0.8); Monocytes % (Auto) 5.1 % (0.0-7.3); Platelet Count 436 K/mm3 (140-440); Red Blood Count 3.12 M/mm3 (3.65-5.03)
[2020-11-19 05:59] LABS: Blood Urea Nitrogen 5 mg/dL (7-17); Calcium 7.9 mg/dL (8.4-10.2); Hemolysis Index 6; INR 0.99 (0.87-1.13)
[2020-11-19 06:01] LABS: BUN/Creatinine Ratio 10
[2020-11-19 06:28] LABS: Chol/HDL Ratio 3.13 %
--- NOTE | 2020-11-19 06:30 | Consultation ---
DATE OF CONSULTATION: 11/18/2020 PULMONARY CRITICAL CARE CONSULTATION NOTE CONSULTING PHYSICIAN: Dr. Arriaza REASON FOR CONSULTATION: Septic shock. CHIEF COMPLAINT AND HISTORY OF PRESENT ILLNESS: As follows: The patient is a 49-year-old female, past medical history significant amongst other things for a diagnosis of multiple sclerosis, who came to the Emergency Room complaining of cough and shortness of breath, had been going on for about 3-4 days. She also mentioned some rhinorrhea, upper respiratory tract symptoms prior. The cough has been productive of yellowish phlegm. Denied any gross or streaky hemoptysis. Denied any chest pain. She does have chest discomfort. She did give some symptoms of anosmia. She, however, denied any contact with anyone with known COVID-19 and states that she has not been vaccinated. In the Emergency Room, she became tachypneic, had a fever and became hypotensive. This is despite volume resuscitation for sepsis. ICU admission was then requested and offered. When I stopped by to see her, she was sitting up in bed, feeling a little bit better, remained on a Levophed drip at 10 mcg per minute. She denied any nausea, vomiting or overt aspiration. When asked about tobacco use or abuse history, she gives a less than 5-pack-year remote tobacco smoking history. This really is as much of history of presentation as I have. PAST MEDICAL HISTORY: Again, multiple sclerosis, congestive heart failure, hypertension, gastroesophageal reflux disease. PAST SURGICAL HISTORY: She has had gastric bypass surgery. She has had a tracheostomy in the past as well as a percutaneous endoscopic gastrostomy tube placement. MEDICATIONS: She was on at the time I stopped by to see her according to the medication administration record included the following: Tylenol 650 mg p.o. q. 6 hours p.r.n. mild pain or fevers, Zithromax 500 mg IV daily, Rocephin 2 grams IV daily, Lovenox 40 mg subQ daily, Levophed drip was given at 10 mcg per minute, Zofran 4 mg IV q. 8 hours p.r.n. nausea and vomiting. ALLERGIES: HEPARIN AND SHELLFISH DERIVED PRODUCTS. Nature of this allergy is unknown. DIET: Cachectic lady. Denies acute weight loss or gain during the preceding few weeks to months. FAMILY AND SOCIAL HISTORY: Lives in the community. She has a less than 5-pack-year remote tobacco smoking history. Denies alcohol or illicit drug use or abuse. Denies any other significant family history. REVIEW OF SYSTEMS: No loss of consciousness. No new-onset seizures. No new-onset focal weakness. She denies gross hematochezia or melena. Denies gross hematuria or dysuria. No hematemesis, no hemoptysis. Denies polydipsia, polyuria. Denies heat or cold intolerance. Complete 13-system review of system was obtained. Pertinent positives and/or negatives as in body of history above, otherwise noncontributory. PHYSICAL EXAMINATION: VITAL SIGNS: At presentation in the Emergency Room, she had a fever of 101.0 degrees Fahrenheit, pulse of 101, respiratory rate of 20 and blood pressure initially was 92/55, O2 sats were 96%, inspired oxygen concentration at that time was not recorded. When I stopped by to see her, O2 sats were 98% that was on, I believe, 2 liters nasal cannula. GENERAL: She is a chronically ill-looking female. Normocephalic, atraumatic, talking to me with full sentences, but definitely with mildly increased respiratory effort at rest. HEAD, EYES, EARS, NOSE AND THROAT Anicteric. No conjunctival erythema. Oropharynx was dry. NECK: No gross jugular venous distention. Mallampati II oropharynx. Grossly, there were no palpable lymph nodes in the supraclavicular or submandibular lymph node chains. LUNGS: Auscultation of both lung estrada significant for diminished bilateral breath sounds, bibasilar inspiratory rales, left greater than right. No wheezing. HEART: Sounds 1 and 2 are heard at the time of my evaluation, regular rate and rhythm without overt rubs or murmurs. ABDOMEN: Soft, flat, bowel sounds are positive, nontender, no palpable hepatosplenomegaly. EXTREMITIES: Without overt digital clubbing or cyanosis, no pedal edema. Pedal pulses are 2+ bilaterally. NEUROLOGIC: Pupils are equal, round, about 4 mm, reactive to light. Extraocular muscle movements are intact. She moves all 4 extremities spontaneously. SKIN: Poor turgor, however, without overt cellulitis or rash in the areas examined. Please see the wound care nurses' notes for full description of her skin. PSYCHIATRIC: Mood and affect: Mood was normal. Affect was appropriate. She had intact judgment and insight and she was very cooperative. LABORATORY DATA: From my review are as follows: Admission white cell count 12,200, hemoglobin 9.4, hematocrit 28.0, platelet count 468. No band forms reported on the manual differential. D-dimer 2860, INR within normal limits. Serum sodium was 133, potassium 3.3, chloride 96, bicarbonate 24, BUN 11, creatinine 0.7, glucose 109. Lactic acid level was 2.3, now within normal limits. Liver function tests otherwise within normal limits except for an albumin of 2.4. test was negative. Procalcitonin 0.1. CRP 9.4. Urinalysis is negative for nitrites and leukocyte esterase. She does have 68 white cells per high-power field. Coronavirus PCR is negative. Two sets of blood cultures are no growth to date. A CT was done of the abdomen. I have reviewed the results. It says extensive postoperative changes throughout the bowel with moderately dilated contrast filled proximal bowel loops, suggested of partial small bowel obstruction, [id number] diffuse biliary ductal dilatation. No obstruction. A CT angio of the chest was done. I have reviewed the CT angio. It is a contrast shot. Main findings, on the mediastinal window, I do not see any gross filling defects consistent with large order pulmonary emboli. She has an infectious process going on in both lungs really, right middle lobe, left lower lobe in particular, areas of bronchiectasis. She has small bilateral pleural effusions, tree-in-bud opacifications, mostly in the left lower lobe again. No gross pneumothorax, no gross bony fracture. ASSESSMENT: 1. Acute hypoxemic respiratory failure. 2. Septic shock secondary to #3. 3. Bilateral pneumonia. 4. Possible aspiration. 5. Diffuse proliferative lung disease with bronchiectatic areas. 6. History of multiple sclerosis. 7. Anemia that is normocytic. 8. Hypokalemia at presentation. 9. Hyponatremia. PLAN: We will continue empiric community-acquired pneumonia therapy. She will benefit from a swallow evaluation and I will actually order one. For now, we will watch her closely, do a bedside dysphagia screen. I suspect she may be chronically aspirating. Oxygen will be weaned to keep sats greater than or equal to about 92%. Aspiration precautions will be maintained. I will go ahead and also put her on GI and DVT prophylaxis. Vasopressors will be weaned for a target mean arterial pressure of greater than 65 mmHg. Gentle volume resuscitation will also be continued. Flu and pneumonia vaccination will be addressed per protocol. Thank you very much for the consult. We will follow along and make further recommendations as picture progresses/becomes clearer. She is critically ill, on life-sustaining interventions including the vasopressors, at risk of from cardiopulmonary system decompensation. At this time, I spent about 35-40 minutes of critical care time without overlap and excluding any procedural time that may be necessary. I should mention she has a right IJ central venous line. TID: [id number] RECEIPT: [id number] YORDY/FARHANA/JAMARCUS
[2020-11-19] MEDS ORDERED: KETOROLAC 30 MG/1 ML INJ IV ONE ×2 (06:44→21:40)
--- NOTE | 2020-11-19 08:33 | Consultation ---
History of Present Illness Consult date: 11/19/20 Requesting physician: JAE LAI Reason for consult: other History of present illness: This patient is a 49-year-old female with significant history of muscular sclerosis, history of gastric bypass. She presents to [facility] complaining of shortness of breath with productive cough, fever, chest pain x4 days. Pain is described as 3/10 substernal to left-sided, achy, nonradiating. Chest pain accompanied shortness of breath and is not provoked by exertion or relieved by rest. CXR reviewed suspicious for left-sided pneumonia. Patient is admitted to ICU after hypotension requiring vasopressor support. At time of interview patient is chest pain-free with mild shortness of breath relieved by supplemental oxygen. She denies any weakness, dizziness, abdominal pain, N/V/D, known exposures. Patient denies any history of cardiac disease, diabetes, kidney or liver pathology. Patient denies any tobacco, alcohol, recreational drug use. PROGRESS NOTE (Acute Hypoxemic Respiratory Failure; Pneumonia;BRADYCARDIA-symptomatic requiring dopamine Seen and examined. Vitals, labs, medications, chart and imaging reviewed. Discussed with nursing and respiratory staff in MDR. Remains on Norepinephrine at 4, Nsaline at 125ml/hour. She had a dose of Atropine for symptomatic bradycardia overnight She had chest pain associated with the episode of bradycardia. Past History Past Medical History: GERD, heart failure, hypertension, other (MS) Past Surgical History: Other (gastric bypass, trach-resolved, feeding tube/removed) Social history: no significant social history Family history: no significant family history Medications and Allergies Allergies Allergy/AdvReac Type Severity Reaction Status Date / Time heparin Allergy Unknown Verified 09/02/20 14:42 peanut Allergy Unknown Verified 11/17/20 23:13 shellfish derived Allergy Unknown Verified 09/02/20 14:42 Home Medications Medication Instructions Recorded Confirmed Last Taken Type Docusate Sodium [Colace] 100 mg PO BID #30 capsule 09/06/20 Unknown Rx oxyCODONE /ACETAMINOPHEN [Percocet 1 tab PO Q6HR PRN #10 tablet 09/06/20 Unknown Rx 5/325] Active Meds: Active Medications Acetaminophen (Acetaminophen 325 Mg Tab) 650 mg PO Q6H PRN PRN Reason: Pain MILD(1-3)/Fever >100.5/RENAE Aspirin (Aspirin Ec 325 Mg Tab) 325 mg PO QDAY RUMA Azithromycin (Azithromycin 250 Mg Tab) 500 mg PO QDAY [facility]; Protocol Stop: 11/22/20 10:01 Enoxaparin Sodium (Enoxaparin 40 Mg/0.4 Ml Inj) 40 mg SUB-Q QDAY@2200 RUMA; Protocol Last Admin: 11/18/20 21:25 Dose: 40 mg Documented by: Famotidine (Famotidine 20 Mg Tab) 20 mg PO QDAY RUMA Sodium Chloride (Nacl 0.9% 1000 Ml) 1,000 mls @ 125 mls/hr IV DIRECT RUMA Last Admin: 11/19/20 04:53 Dose: 125 mls/hr Documented by: Ceftriaxone Sodium (Rocephin/Ns 2 Gm/100 Ml) 2 gm in 100 mls @ 200 mls/hr IV Q24H [facility]; Protocol Stop: 11/22/20 18:29 Last Admin: 11/18/20 19:04 Dose: 200 mls/hr Documented by: Norepinephrine (Levophed Drip 4 Mg/Ns 250 Ml) 4 mg in 250 mls @ 7.5 mls/hr IV TITR RUMA; Protocol Last Admin: 11/19/20 04:53 Dose: 10 mcg/min, 37.5 mls/hr Documented by: Magnesium Sulfate (Magnesium Sulfate 4gm/100ml) 4 gm in 100 mls @ 25 mls/hr IV ONCE ONE Stop: 11/19/20 12:59 Magnesium Hydroxide (Magnesium Hydroxide (Mom) Oral Liqd Udc) 30 ml PO Q4H PRN PRN Reason: Constipation Ondansetron HCl (Ondansetron 4 Mg/2 Ml Inj) 4 mg IV Q8H PRN PRN Reason: Nausea And Vomiting Last Admin: 11/18/20 19:27 Dose: 4 mg Documented by: Sodium Chloride (Sodium Chloride 0.9% 10 Ml Flush Syringe) 10 ml IV BID [facility] Last Admin: 11/19/20 00:52 Dose: 10 ml Documented by: Sodium Chloride (Sodium Chloride 0.9% 10 Ml Flush Syringe) 10 ml IV PRN PRN PRN Reason: LINE FLUSH Physical Examination Vital signs: Vital Signs Temp Pulse Resp BP Pulse Ox 101.0 F H 101 H 20 92/55 96 11/17/20 15:04 11/17/20 15:04 11/17/20 15:04 11/17/20 15:04 11/17/20 15:04 General appearance: no acute distress, alert, other (thin, on supplemental oxygen at 3L NC) Eyes: non-icteric ENT: oropharynx dry Neck: supple, no lymphadenopathy, other (RIJ CVL) Effort: mildly labored Ascultation: Bilateral: diminished breath sounds Cardiovascular: regular rate and rhythm, other (S1,S2) Gastrointestinal: normoactive bowel sounds, soft, non-tender Integumentary: normal Extremities: no cyanosis, no edema, cool normal mental status, non-focal exam, pupils equal and round, motor strength normal and mood appropriate, affect normal Results - Laboratory Findings CBC and BMP: 11/20/20 05:30 11/20/20 05:30 PT/INR, D-dimer PT 13.7 Sec. (12.2-14.9) 11/19/20 05:26 INR 0.99 (0.87-1.13) 11/19/20 05:26 D-Dimer 2860.76 ng/mlDDU (0-234) H 11/18/20 02:33 Abnormal lab findings: Abnormal Labs 11/17/20 11/17/20 11/17/20 15:12 15:12 15:12 WBC 12.2 H RBC 3.02 L Hgb 9.4 L Hct 28.0 L Plt Count 468 H Seg Neutrophils % Seg Neuts % (Manual) 88.0 H Lymphocytes % (Manual) 6.0 L Seg Neutrophils # Seg Neutrophils # Man 10.7 H Lymphocytes # (Manual) 0.7 L D-Dimer Sodium 133 L Potassium 3.3 L Chloride 96.4 L BUN Creatinine Glucose 109 H Lactic Acid 2.30 H* Calcium Phosphorus Magnesium Troponin T C-Reactive Protein Albumin 2.4 L LDL Cholesterol Direct HDL Cholesterol Urine WBC (Auto) 11/18/20 11/18/20 11/18/20 02:33 02:33 06:30 WBC RBC 2.73 L Hgb 8.7 L Hct 25.8 L Plt Count 528 H Seg Neutrophils % 79.0 H Seg Neuts % (Manual) Lymphocytes % (Manual) Seg Neutrophils # 8.4 H Seg Neutrophils # Man Lymphocytes # (Manual) D-Dimer 2860.76 H Sodium Potassium Chloride BUN Creatinine Glucose 112 H Lactic Acid Calcium Phosphorus Magnesium Troponin T C-Reactive Protein 9.40 H Albumin LDL Cholesterol Direct HDL Cholesterol Urine WBC (Auto) 11/18/20 11/18/20 11/18/20 06:30 08:33 21:20 WBC RBC Hgb Hct Plt Count Seg Neutrophils % Seg Neuts % (Manual) Lymphocytes % (Manual) Seg Neutrophils # Seg Neutrophils # Man Lymphocytes # (Manual) D-Dimer Sodium Potassium 3.5 L Chloride BUN Creatinine Glucose 122 H Lactic Acid Calcium 7.8 L Phosphorus 2.30 L Magnesium 1.50 L Troponin T C-Reactive Protein Albumin LDL Cholesterol Direct HDL Cholesterol Urine WBC (Auto) 68.0 H 11/19/20 11/19/20 11/19/20 05:26 05:26 05:26 WBC RBC 3.12 L Hgb 9.6 L Hct 29.4 L Plt Count Seg Neutrophils % 73.9 H Seg Neuts % (Manual) Lymphocytes % (Manual) Seg Neutrophils # Seg Neutrophils # Man Lymphocytes # (Manual) D-Dimer Sodium Potassium Chloride 107.8 H BUN 5 L Creatinine 0.5 L Glucose Lactic Acid Calcium 7.9 L Phosphorus Magnesium Troponin T 0.075 H D C-Reactive Protein Albumin LDL Cholesterol Direct 41 L HDL Cholesterol 29 L Urine WBC (Auto) - Diagnostic Findings Chest x-ray: image reviewed CT scan - chest: image reviewed (No PE, mucouc plugging) Additional studies: Echocardiogram (11/19/2020): LVEF is 55 to 60%. LV normal size, LV SF is normal. Akinetic mid superior septal area noted. RV SF is normal. RVSP is 29 mmHg. Mild pulmonic regurg. Assessment and Plan Sepsis with shock,Urine culture positive with gram-negative kareem. Bradycardia-symptomatic Pneumonia Lactic acidosis Multiple sclerosis NSTEMI Protein calorie malnutrition -Titrate supplemental oxygen to keep SpO2 89-92% -wean vasopressor support to keep MAP >65 -Antibiotics per ID, follow up cultures for ID and sensitivities of urine culture -Adjust and de-escalate antibiotics per culture data and clinical response- ID also following -Nutritional support -VTE prophylaxis- currently on therapeutic enoxaparin -Mobility, off loading with frequent turning per facility protocol for pressure ulcer prevention (she is a high risk patient) -Nutritional support,get Fluorescent Solution Mixer, appetiete is sub-optimal -Avoid delirium, maintain sleep-wake cycle, avoid benzodiazepines -Supportive transfusions to keep HgB >7g/dL -Chronic home medications as clinically indicated -NSTEMI per Cardiology, cardioprotective measures in the interim CONDITION: CRITICAL PROGNOSIS: GUARDED CODE STATUS: FULL CODE The high probability of a clinically significant, sudden or life threatening deterioration of the [pulmonary,cardiovascular,] system(s) required my full and direct attention, intervention and personal management. The aggregate critical care time was [35] minutes. This time is in addition to time spent performing reported procedures but includes the following: [x] Data Review and interpretation [x] Patient assessment and monitoring of vital signs [x] Documentation [x] Medication orders and management
[2020-11-19] MEDS ORDERED: MAGNESIUM SULFATE 4 GM/100 ML BAG IV ONE (09:00)
[2020-11-19] MEDS: ASPIRIN EC 325 MG TAB PO SCH (09:51)
[2020-11-19] MEDS: FAMOTIDINE 20 MG TAB PO SCH (09:52)
[2020-11-19] MEDS: AZITHROMYCIN 250 MG TAB PO SCH (09:52)
--- NOTE | 2020-11-19 10:27 | Electrocardiograph Report ---
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
--- NOTE | 2020-11-19 13:37 | Progress Note ---
Assessment and Plan --Bilateral pneumonia, likely community-acquired Patient placed on empiric IV antibiotics. We will await culture results. --NSTEMI suspect type II Troponin initially negative and nonspecific. In view of patient's infectious pathology requiring vasopressor support suspect elevated troponin due to supply We will continue to trend CE's. Patient currently on Lovenox therapeutic dose. Echocardiogram is pending Cardiology consulted -- Lactic acidosis Possibly secondary to the underlying infection and sepsis. We will continue IV fluid and empiric IV antibiotics. We will monitor labs. -- Multiple sclerosis Clinically stable. Recommended outpatient follow-up -- Sepsis with shock Present on admission. Possibly secondary to the underlying pneumonia. We will continue on empiric IV antibiotics and IV fluid. Wean off Levophed as tolerated Await culture results. -- Person under investigation for COVID-19, ruled out with negative test Recommended for outpatient vaccination against Covid --Moderate protein calorie malnutrition, encouraged balanced diet and nutritional supplements -- DVT prophylaxis Patient placed on subcutaneous Lovenox. --Full code status Patient is full code. The high probability of a clinically significant, sudden or life threatening deterioration of the [[facility]S, respiratory] system(s) required my full and direct attention, intervention and personal management. The aggregate critical care time was [30] minutes. This time is in addition to time spent performing reported procedures but includes the following: [x] Data Review and interpretation [x] Patient assessment and monitoring of vital signs [x] Documentation [x] Medication orders and management Brief history: 49-year-old -Tongan female with known history of MS presenting to the emergency room complaining of cough shortness of breath which has been ongoing for the past 4 days. She admits she has not had the Covid vaccination. During the course of her stay in the emergency room, patient she was tachypneic, tachycardic, had a fever of 101.0 F and became hypotensive in spite of boluses of IV fluid given. She was subsequently commenced on pressors, initiated on empiric antibiotic and admitted to ICU. chest x-ray reveals increased opacities within the left lung base which may represent infectious process. Chest CTA: No evidence of pulmonary embolism, extensive airspace consolidations throughout the lungs with likely bronchopneumonia. Labs reveals leukocytosis of 12.2, lactic acidosis of 2.3 Daily clinical course: 11/18/20: pt is neg for covid19, remains on Levophed drip. Continue empiric antibiotics. Monitor at ICU and follow clinically. Nebulizer breathing treatment as needed. 11/19/20; patient noted to have elevated troponin today, remains on Levophed, consulted cardiology and ordered for 2D echocardiogram, placed on therapeutic dose of lovenox for NSTEMI likely type II. Continue to monitor clinically and wean off from Levophed as tolerated. Subjective Date of service: 11/19/20 Interval history: Patient seen and examined. Medical records and medication list reviewed. No acute event overnight noted by the RN. Patient remains on Levophed drip. Patient is tolerating diet. Covid test result is negative, noted to have elevated troponin Discussed plan of care at bedside with patient. Objective - Exam Narrative Exam: GENERAL: Malnourished -Tongan female who appears to be older than her s tated age lying on bed appeared to be in no apparent distress. HEENT: Normocephalic. Atraumatic. No conjunctival congestion or icterus. Patient has moist mucous membranes. NECK: Supple. Trachea midline. CHEST/LUNGS: Few rhonchi's auscultated bilaterally, breathing nonlabored. Patient on nasal cannula O2 HEART/CARDIOVASCULAR: S1 and S2 positive. ABDOMEN: Abdomen is soft, nontender. Patient has normal bowel sounds. SKIN: There is no rash. Warm and dry. NEURO: No focal motor deficit. Follows command. MUSCULOSKELETAL: No joint effusion or tenderness. EXTRIMITY: No edema, no cyanosis or clubbing. PSYCH: Cooperative. - Constitutional Vitals: Vital Signs - 12hr 11/19/20 11/19/20 11/19/20 03:00 08:00 10:00 Temperature 98.9 F 98 F Pulse Rate 59 L - Labs CBC & Chem 7: 11/20/20 05:30 11/20/20 05:30 Labs: Abnormal lab results 11/18/20 11/19/20 11/19/20 Range/Units 21:20 05:26 05:26 RBC 3.12 L (3.65-5.03) M/mm3 Hgb 9.6 L (10.1-14.3) gm/dl Hct 29.4 L (30.3-42.9) % Seg Neutrophils % 73.9 H (40.0-70.0) % Chloride 107.8 H (98-107) mmol/L BUN 5 L (7-17) mg/dL Creatinine 0.5 L (0.6-1.2) mg/dL Calcium 7.9 L (8.4-10.2) mg/dL Phosphorus 2.30 L (2.5-4.5) mg/dL Magnesium 1.50 L (1.7-2.3) mg/dL Troponin T (0.00-0.029) ng/mL LDL Cholesterol Direct (50-130) mg/dL HDL Cholesterol (40-59) mg/dL 11/19/20 11/19/20 Range/Units 05:26 08:41 RBC (3.65-5.03) M/mm3 Hgb (10.1-14.3) gm/dl Hct (30.3-42.9) % Seg Neutrophils % (40.0-70.0) % Chloride (98-107) mmol/L BUN (7-17) mg/dL Creatinine (0.6-1.2) mg/dL Calcium (8.4-10.2) mg/dL Phosphorus (2.5-4.5) mg/dL Magnesium (1.7-2.3) mg/dL Troponin T 0.075 H D 0.348 H* D (0.00-0.029) ng/mL LDL Cholesterol Direct 41 L (50-130) mg/dL HDL Cholesterol 29 L (40-59) mg/dL HEART Score - HEART Score Troponin: Troponin T 0.348 ng/mL (0.00-0.029) H* D 11/19/20 08:41
--- NOTE | 2020-11-19 13:47 | Consultation ---
History of Present Illness Consult date: 11/19/20 Requesting physician: VINNIE TATUM History of present illness: This patient is a 49-year-old female with significant history of muscular scl erosis, history of gastric bypass. Patient is previously unknown to our practice and is not followed by cardiology. She presents to [facility] complaining of shortness of breath with productive cough, fever, chest pain x4 days. Pain is described as 3/10 substernal to left-sided, achy, nonradiating. Chest pain accompanied shortness of breath and is not provoked by exertion or relieved by rest. CXR reviewed suspicious for left-sided pneumonia. Patient is admitted to ICU after hypotension requiring vasopressor support. At time of interview patient is chest pain-free with mild shortness of breath relieved by supplemental oxygen. She denies any weakness, dizziness, abdominal pain, N/V/D, known exposures. Patient denies any history of cardiac disease, diabetes, kidney or liver pathology. Patient denies any tobacco, alcohol, recreational drug use. On admission D-dimer is noted to be significantly elevated 3000. Patient is not Covid vaccinated. Past History Past Medical History: GERD, heart failure, hypertension, other (See HPI) Past Surgical History: Other (gastric bypass, trach-resolved, feeding tube/removed) Social history: no significant social history Family history: no significant family history Medications and Allergies Allergies Allergy/AdvReac Type Severity Reaction Status Date / Time heparin Allergy Unknown Verified 09/02/20 14:42 peanut Allergy Unknown Verified 11/17/20 23:13 shellfish derived Allergy Unknown Verified 09/02/20 14:42 Home Medications Medication Instructions Recorded Confirmed Last Taken Type Docusate Sodium [Colace] 100 mg PO BID #30 capsule 09/06/20 Unknown Rx oxyCODONE /ACETAMINOPHEN [Percocet 1 tab PO Q6HR PRN #10 tablet 09/06/20 Unknown Rx 5/325] Active Meds: Active Medications Acetaminophen (Acetaminophen 325 Mg Tab) 650 mg PO Q6H PRN PRN Reason: Pain MILD(1-3)/Fever >100.5/RENAE Aspirin (Aspirin Ec 325 Mg Tab) 325 mg PO QDAY [facility] Last Admin: 11/19/20 09:51 Dose: 325 mg Documented by: Azithromycin (Azithromycin 250 Mg Tab) 500 mg PO QDAY [facility]; Protocol Stop: 11/22/20 10:01 Last Admin: 11/19/20 09:52 Dose: 500 mg Documented by: Enoxaparin Sodium (Enoxaparin 40 Mg/0.4 Ml Inj) 40 mg SUB-Q QDAY@2200 [facility]; Protocol Last Admin: 11/18/20 21:25 Dose: 40 mg Documented by: Famotidine (Famotidine 20 Mg Tab) 20 mg PO QDAY [facility] [place] Last Admin: 11/19/20 09:52 Dose: 20 mg Documented by: Sodium Chloride (Nacl 0.9% 1000 Ml) 1,000 mls @ 125 mls/hr IV DIRECT RUMA Last Admin: 11/19/20 12:31 Dose: 125 mls/hr Documented by: Ceftriaxone Sodium (Rocephin/Ns 2 Gm/100 Ml) 2 gm in 100 mls @ 200 mls/hr IV Q24H [facility]; Protocol Stop: 11/22/20 18:29 Last Admin: 11/18/20 19:04 Dose: 200 mls/hr Documented by: Norepinephrine (Levophed Drip 4 Mg/Ns 250 Ml) 4 mg in 250 mls @ 7.5 mls/hr IV TITR [facility]; Protocol Last Admin: 11/19/20 12:31 Dose: 4 mcg/min, 15 mls/hr Documented by: Magnesium Hydroxide (Magnesium Hydroxide (Mom) Oral Liqd Udc) 30 ml PO Q4H PRN PRN Reason: Constipation Ondansetron HCl (Ondansetron 4 Mg/2 Ml Inj) 4 mg IV Q8H PRN PRN Reason: Nausea And Vomiting Last Admin: 11/18/20 19:27 Dose: 4 mg Documented by: Sodium Chloride (Sodium Chloride 0.9% 10 Ml Flush Syringe) 10 ml IV BID [facility] [place] Last Admin: 11/19/20 09:53 Dose: 10 ml Documented by: Sodium Chloride (Sodium Chloride 0.9% 10 Ml Flush Syringe) 10 ml IV PRN PRN PRN Reason: LINE FLUSH Review of Systems Constitutional: fever, no weight loss, no weight gain, no chills, no sweats, no night sweats Ears, nose, mouth and throat: no ear pain, no ear discharge, no nose pain, no nasal congestion, no nasal discharge Cardiovascular: chest pain, shortness of breath, no orthopnea, no palpitations, no rapid/irregular heart beat, no edema, no syncope, no lightheadedness, no dyspnea on exertion, no paroxysmal nocturnal dyspnea, no high blood pressure, no leg edema, no decreased exercise tolerance Respiratory: cough, cough with sputum, shortness of breath, no dyspnea on exertion Gastrointestinal: no abdominal pain, no nausea, no vomiting, no diarrhea Genitourinary Female: no pelvic pain, no flank pain Musculoskeletal: no neck stiffness, no neck pain, no shooting arm pain, no arm numbness/tingling, no low back pain, no shooting leg pain Integumentary: no rash, no pruritis, no redness, no sores, no wounds Neurological: no head injury, no paralysis, no weakness, no parathesias, no numbness, no tingling, no seizures, no syncope Psychiatric: no anxiety Endocrine: no cold intolerance, no heat intolerance Hematologic/Lymphatic: no easy bruising, no easy bleeding Allergic/Immunologic: no urticaria Physical Examination Last Vital Signs Temp 98 F 11/19/20 08:00 Pulse 59 L 11/19/20 10:00 Resp 18 11/18/20 17:16 BP 115/50 11/18/20 17:16 Pulse Ox 100 11/18/20 17:16 General appearance: no acute distress HEENT: Positive: PERRL, Normocephaly, Mucus Membranes Moist Neck: Positive: neck supple, trachea midline Cardiac: Positive: Reg Rate and Rhythm, S1/S2 Lungs: Positive: Decreased Breath Sounds Neuro: Positive: Grossly Intact Abdomen: Positive: Unremarkable, Soft Skin: Negative: Rash, Wound Extremities: Present: upper extr. pulses, lower extr. pulses. Absent: edema Results 11/19/20 05:26 11/19/20 05:26 Coagulation 11/19/20 Range/Units 05:26 PT 13.7 (12.2-14.9) Sec. INR 0.99 (0.87-1.13) Lipids 11/19/20 Range/Units 05:26 Triglycerides 89 (2-149) mg/dL Cholesterol 91 (50-199) mg/dL HDL Cholesterol 29 L (40-59) mg/dL Cholesterol/HDL Ratio 3.13 % CBC 11/19/20 Range/Units 05:26 WBC 7.1 (4.5-11.0) K/mm3 RBC 3.12 L (3.65-5.03) M/mm3 Hgb 9.6 L (10.1-14.3) gm/dl Hct 29.4 L (30.3-42.9) % Plt Count 436 (140-440) K/mm3 Lymph # (Auto) 1.4 (1.2-5.4) K/mm3 [place] # (Auto) 0.4 (0.0-0.8) K/mm3 Eos # (Auto) 0.1 (0.0-0.4) K/mm3 Baso # (Auto) 0.1 (0.0-0.1) K/mm3 Comprehensive Metabolic Panel 11/19/20 Range/Units 05:26 Sodium 139 (137-145) mmol/L Potassium 3.6 (3.6-5.0) mmol/L Chloride 107.8 H (98-107) mmol/L Carbon Dioxide 23 (22-30) mmol/L BUN 5 L (7-17) mg/dL Creatinine 0.5 L (0.6-1.2) mg/dL Glucose 94 (65-100) mg/dL Calcium 7.9 L (8.4-10.2) mg/dL - Imaging and Cardiology Echo: pending EKG: report reviewed, image reviewed EKG interpretations - Telemetry EKG Rhythm: Sinus Bradycardia - EKG Sinus rhythms and dysrhythmias: sinus rhythm Assessment and Plan NSTEMI suspect type II * Troponin initially negative and nonspecific. Critical lab value was reported troponin 0.3. In view of patient's infectious pathology requiring vasopressor support suspect elevated troponin due to supply demand mismatch. Stat twelve- lead is pending. We will continue to trend CE's. * Patient currently on Lovenox therapeutic dose. * Echocardiogram is pending Septic shock in setting of pneumonia * Management per senior instrumentation engineer currently requiring vasopressors * CTA chest is negative for PTE, suspicious for mucous plugging We will follow This patient was seen in conjunction with Dr Buckner who agrees with this assessment and plan of care - Patient Problems (1) NSTEMI (non-ST elevated myocardial infarction) Current Visit: Yes Status: Acute Plan to address problem: Suspect type II (2) Elevated d-dimer Current Visit: Yes Status: Acute (3) Person under investigation for COVID-19 Current Visit: Yes Status: Acute (4) Pneumonia Current Visit: Yes Status: Acute (5) Sepsis Current Visit: Yes Status: Acute (6) DVT prophylaxis Current Visit: Yes Status: Acute (7) History of gastric bypass Current Visit: Yes Status: Chronic (8) Multiple sclerosis Current Visit: Yes Status: Chronic
--- NOTE | 2020-11-19 15:16 | Progress Note ---
Assessment and Plan Cultures: Blood culture 11/18/2020 no growth so far Urine culture gram-negative rods Covid PCR negative A/P: 49-year-old female past medical history multiple sclerosis admitted with bilateral pneumonia #Acute sepsis: With fevers, leukocytosis, tachycardia, tachypnea. Likely secondary to bilateral pneumonia. #Bilateral pneumonia: Initial Covid testing negative, findings atypical for Covid. Procalcitonin negative. Viral versus bacterial etiology #Multiple sclerosis Recs: -Continue ceftriaxone azithromycin to complete 5 days -Obtain sputum culture -Follow-up urine culture finalization. -Follow-up blood cultures Thank you for the consult, we will continue to follow. Gwen Jain MD [facility] ([facility]) O: [phone] F: [phone] Subjective Date of service: 11/19/20 Interval history: Afebrile, white count. Urine culture with gram-negative kareem. Objective - Exam Narrative Exam: Physical Exam: Constitutional: Alert, cooperative. No acute distress Head, Ears, Nose: Normocephalic, atraumatic. Eyes: Conjunctivae/corneas clear. No icterus. No ptosis. Neck: Supple, no meningeal signs Oral: dentition fair, no thrush Cardiovascular: S1, S2 normal. Respiratory: Good air entry, clear to auscultation bilaterally GI: Soft, non-tender; bowel sounds normal. No peritoneal signs. Musculoskeletal: No pedal edema, no cyanosis. Skin: No rash or abscess Hem/Lymphatic: No palpable cervical or supraclavicular nodes. Psych: Mood ok. Affect normal Neurological: Awake, alert, oriented. No gross abnormality - Constitutional Vitals: Vital Signs Temp Pulse Resp BP Pulse Ox 98 F 59 L 18 115/50 100 11/19/20 08:00 11/19/20 10:00 11/18/20 17:16 11/18/20 17:16 11/18/20 17:16 Temperature -Last 24 Hours Temperature 98 F Temperature 98.9 F Temperature 99 F Temperature 99.7 F - Labs CBC & Chem 7: 11/19/20 05:26 11/19/20 05:26 Labs: Abnormal lab results 11/18/20 11/19/20 11/19/20 Range/Units 21:20 05:26 05:26 RBC 3.12 L (3.65-5.03) M/mm3 Hgb 9.6 L (10.1-14.3) gm/dl Hct 29.4 L (30.3-42.9) % Seg Neutrophils % 73.9 H (40.0-70.0) % Chloride 107.8 H (98-107) mmol/L BUN 5 L (7-17) mg/dL Creatinine 0.5 L (0.6-1.2) mg/dL Calcium 7.9 L (8.4-10.2) mg/dL Phosphorus 2.30 L (2.5-4.5) mg/dL Magnesium 1.50 L (1.7-2.3) mg/dL Troponin T (0.00-0.029) ng/mL LDL Cholesterol Direct (50-130) mg/dL HDL Cholesterol (40-59) mg/dL 11/19/20 11/19/20 Range/Units 05:26 08:41 RBC (3.65-5.03) M/mm3 Hgb (10.1-14.3) gm/dl Hct (30.3-42.9) % Seg Neutrophils % (40.0-70.0) % Chloride (98-107) mmol/L BUN (7-17) mg/dL Creatinine (0.6-1.2) mg/dL Calcium (8.4-10.2) mg/dL Phosphorus (2.5-4.5) mg/dL Magnesium (1.7-2.3) mg/dL Troponin T 0.075 H D 0.348 H* D (0.00-0.029) ng/mL LDL Cholesterol Direct 41 L (50-130) mg/dL HDL Cholesterol 29 L (40-59) mg/dL
[2020-11-19] MEDS: ENOXAPARIN 60 MG/0.6 ML INJ SUB-Q SCH ×2 (16:03→21:55)
[2020-11-19] MEDS: cefTRIAXone/NS 2 GM/100 ML 2 GM/100 ML BAG IV SCH (17:16)
[2020-11-19] MEDS: ONDANSETRON 4 MG/2 ML INJ IV PRN (21:30)
[2020-11-20] MEDS: SODIUM CHLORIDE 0.9% 1000 ML 1,000 ML IV SCH (05:33)
[2020-11-20 06:23] LABS: Hematocrit 23.5 % (30.3-42.9); Hemoglobin 7.7 gm/dl (10.1-14.3); Mean Corpuscular HGB Conc 33 % (30-34); Mean Corpuscular Volume 94 fl (79-97); Platelet Count 329 K/mm3 (140-440)
[2020-11-20 07:50] LABS: Blood Urea Nitrogen 4 mg/dL (7-17); Calcium 7.5 mg/dL (8.4-10.2); Hemolysis Index 3
[2020-11-20 08:32] LABS: BUN/Creatinine Ratio 7
[2020-11-20] MEDS: AZITHROMYCIN 250 MG TAB PO SCH (09:43)
[2020-11-20] MEDS: ENOXAPARIN 60 MG/0.6 ML INJ SUB-Q SCH (09:43)
[2020-11-20] MEDS: FAMOTIDINE 20 MG TAB PO SCH (09:43)
[2020-11-20] MEDS: ASPIRIN EC 325 MG TAB PO SCH (09:43)
--- NOTE | 2020-11-20 10:15 | Progress Note ---
Assessment and Plan NSTEMI suspect type II * Troponin is mildly elevated, subacute nonspecific. Single critical lab value of 0.3 troponin was noted yesterday. Suspect lab error. Repeat troponin is in line with previous testing. Stat twelve-lead shows normal sinus rhythm with no acute ischemic changes. In view of patient's infectious pathology requiring vasopressor support suspect elevated troponin due to supply demand mismatch. We will continue to trend CE's. * Patient currently on Lovenox therapeutic dose. * Echocardiogram (11/19/2020): LVEF is 55 to 60%. LV normal size, LV SF is normal. Akinetic mid superior septal area noted. RV SF is normal. RVSP is 29 mmHg. Mild pulmonic regurg. Septic shock in setting of pneumonia * Management per computer systems manager currently requiring vasopressors * CTA chest is negative for PTE, suspicious for mucous plugging * Urine cultures showed gram-negative rods. Blood cultures show no growth after 48 hours DARLINE * No SAMEER/ARB in setting of DARLINE. Avoid nephrotoxic agents Patient is currently chest pain-free with subacute nonspecific troponin. Will follow on as-needed basis. This patient was seen in conjunction with Dr Buckner who agrees with this assessment and plan of care - Patient Problems (1) NSTEMI (non-ST elevated myocardial infarction) Current Visit: Yes Status: Acute (2) Elevated d-dimer Current Visit: Yes Status: Acute (3) Person under investigation for COVID-19 Current Visit: Yes Status: Acute (4) Pneumonia Current Visit: Yes Status: Acute (5) Sepsis Current Visit: Yes Status: Acute (6) DVT prophylaxis Current Visit: Yes Status: Acute (7) History of gastric bypass Current Visit: Yes Status: Chronic (8) Multiple sclerosis Current Visit: Yes Status: Chronic Subjective Date of service: 11/20/20 Principal diagnosis: Sepsis Interval history: Patient resting comfortably in bed, no shortness of breath or chest pain overnight Telemetry reviewed shows sinus rhythm with no events Objective Last Vital Signs Temp 98.6 F 11/20/20 07:46 Pulse 64 11/20/20 09:00 Resp 19 11/20/20 09:00 BP 89/56 11/20/20 09:00 Pulse Ox 98 11/19/20 20:46 - Physical Examination HEENT: Positive: PERRL, Normocephaly, Mucus Membranes Moist Neck: Positive: neck supple, trachea midline Cardiac: Positive: Reg Rate and Rhythm, S1/S2 Lungs: Positive: Decreased Breath Sounds Neuro: Positive: Grossly Intact Abdomen: Positive: Unremarkable, Soft Skin: Negative: Rash, Wound Extremities: Present: upper extr. pulses, lower extr. pulses. Absent: edema - Labs and Meds CBC 11/20/20 Range/Units 05:30 WBC 3.3 L (4.5-11.0) K/mm3 RBC 2.50 L (3.65-5.03) M/mm3 Hgb 7.7 L (10.1-14.3) gm/dl Hct 23.5 L (30.3-42.9) % Plt Count 329 (140-440) K/mm3 Comprehensive Metabolic Panel 11/20/20 Range/Units 05:30 Sodium 140 (137-145) mmol/L Potassium 3.6 (3.6-5.0) mmol/L Chloride 110.6 H (98-107) mmol/L Carbon Dioxide 24 (22-30) mmol/L BUN 4 L (7-17) mg/dL Creatinine 0.6 (0.6-1.2) mg/dL Glucose 74 (65-100) mg/dL Calcium 7.5 L (8.4-10.2) mg/dL - Imaging and Cardiology EKG: report reviewed, image reviewed Echo: report reviewed ( the echocardiogram (11/19/2020): LVEF is 55 to 60%. LV normal size, LV SF is normal. Akinetic mid superior septal area noted. RV SF is normal. RVSP is 29 mmHg. Mild pulmonic regurg.) - Telemetry EKG Rhythm: Sinus Rhythm - EKG Sinus rhythms and dysrhythmias: sinus rhythm
--- NOTE | 2020-11-20 11:50 | Progress Note ---
Assessment and Plan Sepsis with shock,Urine culture positive with gram-negative kareem. Bradycardia-symptomatic Pneumonia Lactic acidosis Multiple sclerosis NSTEMI Protein calorie malnutrition -Continue to titrate supplemental oxygen to keep SpO2 89-92% -Antibiotics per ID, follow up cultures for ID and sensitivities of urine culture -Adjust and de-escalate antibiotics per culture data and clinical response- ID also following -Nutritional support -VTE prophylaxis- currently on therapeutic enoxaparin -Mobility, off loading with frequent turning per facility protocol for pressure ulcer prevention (she is a high risk patient) -Nutritional support, appetite is sub-optimal -Avoid delirium, maintain sleep-wake cycle, avoid benzodiazepines -Supportive transfusions to keep HgB >7g/dL -Chronic home medications as clinically indicated -NSTEMI per Cardiology, cardioprotective measures in the interim Subjective Date of service: 11/20/20 Principal diagnosis: Sepsis Interval history: (Acute Hypoxemic Respiratory Failure; Pneumonia;BRADYCARDIA Seen and examined. Vitals, labs, medications, chart and imaging reviewed. Discussed with nursing and respiratory staff Off vasopressors, denies any chest pain, no shortness of breath. resting peacefully in bed Objective Vital Signs - 12hr 11/20/20 11/20/20 11/20/20 00:00 01:00 02:00 Temperature Pulse Rate 61 58 L 58 L Respiratory 24 20 21 Rate Blood Pressure 84/51 86/54 86/49 11/20/20 11/20/20 11/20/20 02:30 02:46 03:00 Temperature Pulse Rate 61 60 58 L Respiratory 20 21 19 Rate Blood Pressure 86/49 86/49 79/50 11/20/20 11/20/20 11/20/20 03:16 03:22 03:30 Temperature 97.7 F Pulse Rate 54 L 58 L Respiratory 20 22 Rate Blood Pressure 81/49 76/45 11/20/20 11/20/20 11/20/20 03:46 04:00 04:16 Temperature Pulse Rate 58 L 53 L 55 L Respiratory 15 22 19 Rate Blood Pressure 76/45 84/46 84/46 11/20/20 11/20/20 11/20/20 04:30 04:46 05:00 Temperature Pulse Rate 51 L 57 L 60 Respiratory 21 21 21 Rate Blood Pressure 83/53 83/53 76/46 11/20/20 11/20/20 11/20/20 05:16 05:30 05:45 Temperature Pulse Rate 58 L 54 L 55 L Respiratory 20 14 23 Rate Blood Pressure 76/46 76/46 11/20/20 11/20/20 11/20/20 06:00 06:15 06:30 Temperature Pulse Rate 55 L 53 L 55 L Respiratory 23 24 15 Rate Blood Pressure 85/51 85/51 90/59 11/20/20 11/20/20 11/20/20 06:45 07:00 07:15 Temperature Pulse Rate 61 57 L 73 Respiratory 17 22 13 Rate Blood Pressure 90/59 81/53 81/53 11/20/20 11/20/20 11/20/20 07:30 07:45 07:46 Temperature 98.6 F Pulse Rate 62 59 L Respiratory 17 25 H Rate Blood Pressure 87/52 87/52 11/20/20 11/20/20 11/20/20 08:00 08:15 08:30 Temperature Pulse Rate 56 L 63 55 L Respiratory 23 24 22 Rate Blood Pressure 94/60 94/60 97/57 11/20/20 11/20/20 11/20/20 08:45 09:00 09:15 Temperature Pulse Rate 52 L 64 59 L Respiratory 18 19 22 Rate Blood Pressure 97/57 89/56 89/56 11/20/20 11/20/20 11/20/20 09:30 09:45 10:01 Temperature Pulse Rate 56 L 74 59 L Respiratory 15 11 L 23 Rate Blood Pressure 83/51 83/51 99/42 11/20/20 11/20/20 11/20/20 10:15 10:30 10:45 Temperature Pulse Rate 65 63 65 Respiratory 22 17 23 Rate Blood Pressure 99/42 93/60 93/60 11/20/20 11/20/20 11:00 11:15 Temperature Pulse Rate 62 67 Respiratory 17 22 Rate Blood Pressure 93/57 93/57 Constitutional: no acute distress, alert, other (thin, on supplemental oxygen at 3L NC) Eyes: non-icteric ENT: oropharynx dry Neck: supple, no lymphadenopathy, other (MOJ CVL) Effort: normal Ascultation: Bilateral: diminished breath sounds Cardiovascular: regular rate and rhythm, other (S1,S2) Gastrointestinal: normoactive bowel sounds, soft, non-tender Integumentary: normal Extremities: no cyanosis, no edema, cool Neurologic: normal mental status, non-focal exam, pupils equal and round, motor strength normal and Psychiatric: mood appropriate, affect normal CBC and BMP: 11/20/20 05:30 11/20/20 05:30 ABG, PT/INR, D-dimer: PT/INR, D-dimer PT 13.7 Sec. (12.2-14.9) 11/19/20 05:26 INR 0.99 (0.87-1.13) 11/19/20 05:26 D-Dimer 2860.76 ng/mlDDU (0-234) H 11/18/20 02:33 Abnormal lab findings: Abnormal Labs 11/17/20 11/17/20 11/17/20 15:12 15:12 15:12 WBC 12.2 H RBC 3.02 L Hgb 9.4 L Hct 28.0 L Plt Count 468 H Seg Neutrophils % Seg Neuts % (Manual) 88.0 H Lymphocytes % (Manual) 6.0 L Seg Neutrophils # Seg Neutrophils # Man 10.7 H Lymphocytes # (Manual) 0.7 L D-Dimer Sodium 133 L Potassium 3.3 L Chloride 96.4 L BUN Creatinine Glucose 109 H Lactic Acid 2.30 H* Calcium Phosphorus Magnesium Troponin T C-Reactive Protein Albumin 2.4 L LDL Cholesterol Direct HDL Cholesterol Urine WBC (Auto) 11/18/20 11/18/20 11/18/20 02:33 02:33 06:30 WBC RBC 2.73 L Hgb 8.7 L Hct 25.8 L Plt Count 528 H Seg Neutrophils % 79.0 H Seg Neuts % (Manual) Lymphocytes % (Manual) Seg Neutrophils # 8.4 H Seg Neutrophils # Man Lymphocytes # (Manual) D-Dimer 2860.76 H Sodium Potassium Chloride BUN Creatinine Glucose 112 H Lactic Acid Calcium Phosphorus Magnesium Troponin T C-Reactive Protein 9.40 H Albumin LDL Cholesterol Direct HDL Cholesterol Urine WBC (Auto) 11/18/20 11/18/20 11/18/20 06:30 08:33 21:20 WBC RBC Hgb Hct Plt Count Seg Neutrophils % Seg Neuts % (Manual) Lymphocytes % (Manual) Seg Neutrophils # Seg Neutrophils # Man Lymphocytes # (Manual) D-Dimer Sodium Potassium 3.5 L Chloride BUN Creatinine Glucose 122 H Lactic Acid Calcium 7.8 L Phosphorus 2.30 L Magnesium 1.50 L Troponin T C-Reactive Protein Albumin LDL Cholesterol Direct HDL Cholesterol Urine WBC (Auto) 68.0 H 11/19/20 11/19/20 11/19/20 05:26 05:26 05:26 WBC RBC 3.12 L Hgb 9.6 L Hct 29.4 L Plt Count Seg Neutrophils % 73.9 H Seg Neuts % (Manual) Lymphocytes % (Manual) Seg Neutrophils # Seg Neutrophils # Man Lymphocytes # (Manual) D-Dimer Sodium Potassium Chloride 107.8 H BUN 5 L Creatinine 0.5 L Glucose Lactic Acid Calcium 7.9 L Phosphorus Magnesium Troponin T 0.075 H D C-Reactive Protein Albumin LDL Cholesterol Direct 41 L HDL Cholesterol 29 L Urine WBC (Auto) 11/19/20 11/20/20 11/20/20 08:41 05:30 05:30 WBC 3.3 L RBC 2.50 L Hgb 7.7 L Hct 23.5 L Plt Count Seg Neutrophils % Seg Neuts % (Manual) Lymphocytes % (Manual) Seg Neutrophils # Seg Neutrophils # Man Lymphocytes # (Manual) D-Dimer Sodium Potassium Chloride 110.6 H BUN 4 L Creatinine Glucose Lactic Acid Calcium 7.5 L Phosphorus Magnesium Troponin T 0.348 H* D 0.074 H D C-Reactive Protein Albumin LDL Cholesterol Direct HDL Cholesterol Urine WBC (Auto) Allied health notes reviewed: nursing
--- NOTE | 2020-11-20 12:47 | Progress Note ---
Assessment and Plan Cultures: Blood culture 11/18/2020 no growth so far Urine culture 11/18/2020: ESBL E. coli Covid PCR negative A/P: 49-year-old female past medical history multiple sclerosis admitted with bilateral pneumonia #Acute sepsis: Likely secondary to bilateral pneumonia, possible UTI. ESBL E. coli UTI: Patient did have pyuria, also reported urinary burning and p ressure. #Bilateral pneumonia: Initial Covid testing negative, findings atypical for Covid. Procalcitonin negative. Viral versus bacterial etiology #Multiple sclerosis Recs: -P.O. levofloxacin 500 mg daily for 3 days -Rocephin, Zithromax discontinued Patricia Carver MD, FACP [facility] ([facility] O: [phone] F: [phone] Subjective Date of service: 11/20/20 Principal diagnosis: Sepsis Interval history: Afebrile. She is very upset about her food. Otherwise reports urinary burning as well as dark brown-colored urination. Objective - Exam Narrative Exam: Physical Exam: Constitutional: Alert, cooperative. No acute distress Head, Ears, Nose: Normocephalic, atraumatic. External ears, nose normal Eyes: Conjunctivae/corneas clear. No icterus. No ptosis. Neck: Supple, no meningeal signs Oral: Poor dentition Cardiovascular: S1, S2 normal. Respiratory: Good air entry, clear to auscultation bilaterally GI: Soft, non-tender; bowel sounds normal. No peritoneal signs Musculoskeletal: No pedal edema, no cyanosis. Skin: No rash or abscess Hem/Lymphatic: No palpable cervical or supraclavicular nodes. No lymphangitis Psych: Mood ok. Affect normal Neurological: Awake, alert, oriented. No gross abnormality - Constitutional Vitals: Vital Signs Temp Pulse Resp BP Pulse Ox 98.6 F 76 12 93/57 98 11/20/20 07:46 11/20/20 12:01 11/20/20 12:01 11/20/20 12:01 11/19/20 20:46 Temperature -Last 24 Hours Temperature 98.6 F Temperature 97.7 F Temperature 98.7 F Temperature 99.1 F Temperature 99.3 F - Labs CBC & Chem 7: 11/20/20 05:30 11/20/20 05:30 Labs: Abnormal lab results 11/20/20 11/20/20 Range/Units 05:30 05:30 WBC 3.3 L (4.5-11.0) K/mm3 RBC 2.50 L (3.65-5.03) M/mm3 Hgb 7.7 L (10.1-14.3) gm/dl Hct 23.5 L (30.3-42.9) % Chloride 110.6 H (98-107) mmol/L BUN 4 L (7-17) mg/dL Calcium 7.5 L (8.4-10.2) mg/dL Troponin T 0.074 H D (0.00-0.029) ng/mL
[2020-11-20] MEDS ORDERED: levoFLOXacin 500 MG TAB PO SCH (13:30)
[2020-11-20 13:54] VITALS: BP 91/51
--- NOTE | 2020-11-20 14:17 | Discharge Summary ---
Providers - Providers Date of Admission: 11/18/20 03:37 Date of discharge: 11/20/20 Attending physician: JAE LAI 11/18/20 00:06 Consult to Dietitian/Nutrition [CONS] Routine Physician Instructions: Reason For Exam: Reason for Consult: Diet education Consult to Physician [CONS] Routine Comment: Consulting Provider: NAZANIN DANIELSON Physician Instructions: Reason For Exam: PNEUMONIA,SEPSIS,HYPOTENSION 11/18/20 00:21 Consult to Physician [CONS] Routine Comment: Consulting Provider: CHINYERE COBB Physician Instructions: Reason For Exam: PNEUMONIA,SEPSIS,R/O COVID-19 11/18/20 18:23 Speech Therapy Evaluation and Treat [CONS] Routine Reason For Exam: Oropharyngeal dysphagia suspect chronic aspiration 11/19/20 03:44 Consult to Physician [CONS] Routine Comment: Consulting Provider: AGUSTINA BERKOWITZ Physician Instructions: Reason For Exam: bradycardia, hx hf, sepsis Primary care physician: SOCIAL SERVICE DIRECTOR Hospitalization Condition: Fair Pertinent studies: Chest x-ray, chest CTA, 2D echocardiogram Hospital course: 49-year-old -[place] female with known history of MS presenting to the emergency room complaining of cough shortness of breath which has been ongoing for the past 4 days. She admits she has not had the Covid vaccination. During the course of her stay in the emergency room, patient she was tachypneic, tachycardic, had a fever of 101.0 F and became hypotensive in spite of boluses of IV fluid given. She was subsequently commenced on pressors, initiated on empiric antibiotic and admitted to ICU. chest x-ray reveals increased opacities within the left lung base which may represent infectious process. Chest CTA: No evidence of pulmonary embolism, extensive airspace consolidations throughout the lungs with likely bronchopneumonia. Labs reveals leukocytosis of 12.2, lactic acidosis of 2.3 Daily clinical course: 11/18/20: pt is neg for covid19, remains on Levophed drip. Continue empiric antibiotics. Monitor at ICU and follow clinically. Nebulizer breathing treatment as needed. 11/19/20; patient noted to have elevated troponin today, remains on Levophed, consulted cardiology and ordered for 2D echocardiogram, placed on therapeutic dose of lovenox for elevated troponin. Continue to monitor clinically and wean off from Levophed as tolerated. 11/20/20: 2D echo showed preserved EF, patient is chest pain-free, off Levophed since last night. Patient is tolerating diet. Resting on room air. H&H slightly dropped likely due to therapeutic anticoagulation with Lovenox. Lovenox discontinued. Per cardiology elevated troponin likely due to demand ischemia NSTEMI type 2. patient encouraged medication compliance and outpatient follow-up in 1 week. She is tolerating diet and eager to go home. Patient recommended her to have repeat CBC and BMP in 1 week, cardiology cleared for discharge. Patient will be discharged home with oral antibiotics and outpatient cardiology follow-up. Disposition: DC-01 TO HOME OR SELFCARE Final Discharge Diagnosis (Prints w/discharge instructions): --Bilateral pneumonia likely community-acquired. --NSTEMI type II. --Lactic acidosis due to severe sepsis. --Sepsis with septic shock. --History of multiple sclerosis. --PUI for COVID-19, ruled out with a negative test. --Moderate protein calorie malnutrition, encouraged balanced diet and nutritional supplements. --Elevated D-dimer, ruled out PE. --Anemia of chronic disease, no active signs of bleeding Time spent for discharge: 34 minutes Core Measure Documentation - Palliative Care Palliative Care/ Comfort Measures: Not Applicable - Core Measures Any of the following diagnoses?: none Exam - Physical Exam Narrative exam: GENERAL: Malnourished -[place] female who appears to be older than her stated age lying on bed appeared to be in no apparent distress. HEENT: Normocephalic. Atraumatic. No conjunctival congestion or icterus. Patient has moist mucous membranes. NECK: Supple. Trachea midline. CHEST/LUNGS: Clear to auscultation bilaterally HEART/CARDIOVASCULAR: S1 and S2 positive. ABDOMEN: Abdomen is soft, nontender. Patient has normal bowel sounds. SKIN: There is no rash. Warm and dry. NEURO: No focal motor deficit. Follows command. MUSCULOSKELETAL: No joint effusion or tenderness. EXTRIMITY: No edema, no cyanosis or clubbing. PSYCH: Cooperative. - Constitutional Vitals: Temp Pulse Resp BP Pulse Ox 98.4 F 89 12 91/51 98 11/20/20 12:00 11/20/20 12:45 11/20/20 12:45 11/20/20 12:45 11/19/20 20:46 Plan Activity: advance as tolerated Weight Bearing Status: Weight Bear as Tolerated Diet: low fat, low salt Follow up with: PRIMARY CARE, [Primary Care Provider] - 3-5 Days CARSON STALLINGS MD [Staff Physician] - 7 Days Prescriptions: levoFLOXacin [Levaquin TAB] 500 mg PO Q24HR #3 tablet Pantoprazole [Protonix] 40 mg PO QDAY #30 tablet
--- NOTE | 2020-11-22 17:38 | Electrocardiograph Report ---
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
--- NOTE | 2020-11-22 17:44 | Electrocardiograph Report ---
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
== END 2020-11-20 16:00 | disposition home or self-care (01) | DRG 871 ==
LOC: ED 15:00 → CC1 11-18 03:37
PROVIDERS: ADMIT Internal Medicine Geriatric Medicine; ATTEND Internal Medicine
PROC: 02HV33Z Insertion of Infusion Device into Superior Vena Cava, Percutaneous Approach (ICD-10-PCS; principal; 2020-11-18)
PROC: B548ZZA Ultrasonography of Superior Vena Cava, Guidance (ICD-10-PCS; 2020-11-18)
DX: A41.51 Sepsis due to Escherichia coli [E. coli] (principal); J18.9 Pneumonia, unspecified organism; I21.A1 Myocardial infarction type 2; R65.21 Severe sepsis with septic shock; J96.01 Acute respiratory failure with hypoxia; E87.2 Acidosis; E44.0 Moderate protein-calorie malnutrition; E87.1 Hypo-osmolality and hyponatremia; N39.0 Urinary tract infection, site not specified; Z68.1 Body mass index [BMI] 19.9 or less, adult; Z20.822 Contact with and (suspected) exposure to COVID-19; D64.9 Anemia, unspecified; J47.9 Bronchiectasis, uncomplicated; E87.6 Hypokalemia; G35 Multiple sclerosis; K21.9 Gastro-esophageal reflux disease without esophagitis; I11.0 Hypertensive heart disease with heart failure; I50.9 Heart failure, unspecified; Z88.8 Allergy status to other drugs, medicaments and biological substances; Z91.010 Allergy to peanuts; Z91.013 Allergy to seafood; Z79.899 Other long term (current) drug therapy
CPT/HCPCS: 36415; 71045; 71275; 80048; 80053; 80061; 81001; 82140; 82728; 82947; 83615; 83735; 84100; 84145; 84484; 84703; 85007; 85025; 85027; 85379; 85610; 85730; 86140; 87040; 87076; 87086; 87186; 93005; 93306; G0378; J0456; J0461; J0696; J1650; J1885; J2270; J2405; J3010; J3475; J7030; Q9967; U0003